=== PATIENT | female | born 1960 | race Caucasian/White ===

== ENCOUNTER 2016-09-24 06:24 | Observation (INO) | payer MEDICARE, MEDICAID ==
[2016-09-24] MEDS ORDERED: ASPIRIN 81 MG TABLET, CHEWABLE PO ONE (06:34)
[2016-09-24] MEDS ORDERED: PREDNISONE 20 MG TABLET PO ONE (08:31)
[2016-09-24] MEDS ORDERED: IPRATROPIUM/ALBUTEROL 0.5-2.5 MG/3 ML AMPUL NEB ONE (08:31)
--- NOTE | 2016-09-24 08:32 | ER Document Report ---
ED Cardiac - General Chief Complaint: Chest Pain Stated Complaint: CHEST PAIN Mode of Arrival: Ambulatory Information source: Patient Notes: Patient states that she developed left-sided chest pain under her breast that was burning in nature yesterday morning around 4 AM. Patient states that yesterday her chest pain was off and on throughout the day. Patient states that her pain returned at 5 this morning and has been constant since then. Patient states that pain varies between being burning in nature, sharp, and occasionally dull. Patient reports that pain radiates to the left neck and left upper arm. Patient does have a history of chronic back pain and shoulder pain as well. Patient does report some shortness of breath, nausea but no vomiting. Patient reports mild cough that has been productive with brown and green colored sputum. TRAVEL OUTSIDE OF THE [place] IN LAST 30 DAYS: No - HPI Patient complains to provider of: Chest pain, Shortness of breath Was the onset of pain: Gradual Is the pain a: New problem Chest pain location: Back, Under breast - Left breast Quality of pain: Achy, Burning, Sharp Chest pain radiation location: Left shoulder, Neck Pain level currently: 1 Chest pain precipitating factors: At Rest Cardiac risk factors: Diabetes, Hypertension, Smoker, Hx ND Positive cardiac history: Yes Associated symptoms: Back pain, Shortness of breath. denies: Nausea/vomiting Exacerbated by: Denies Relieved by: Nothing Similar symptoms previously: Yes Recently seen / treated by doctor: No - Related Data Allergies/Adverse Reactions: lactose [Lactose] Allergy (Verified 09/24/16 06:36) Sulfa (Sulfonamide Antibiotics) Adverse Reaction (Unknown, Verified 09/24/16 06: 36) Past Medical History - General Information source: Patient - Social History Smoking Status: Current Every Day Smoker - One pack per day Chew tobacco use (# tins/day): No Frequency of alcohol use: None Drug Abuse: None Occupation: none Lives with: Alone Family History: Reviewed & Not Pertinent Patient has suicidal ideation: No Patient has homicidal ideation: No - Past Medical History Cardiac Medical History: Reports: Hx Coronary Artery Disease, Hx Heart Attack - x4, Hx Hypertension Pulmonary Medical History: Reports: Hx COPD Denies: Hx Tuberculosis Neurological Medical History: Reports: Hx Cerebrovascular Accident. Denies: Hx Seizures Endocrine Medical History: Reports: Hx Diabetes Mellitus Type 1, Hx Diabetes Mellitus Type 2 Renal/ Medical History: Denies: Hx Peritoneal Dialysis GI Medical History: Reports: Hx Hepatitis - Hepatitis C Musculoskeltal Medical History: Reports Hx Arthritis Psychiatric Medical History: Reports: Hx Bipolar Disorder, Hx Depression, Hx Post Traumatic Stress Disorder Infectious Medical History: Reports: Hx Hepatitis - Hepatitis C Past Surgical History: Reports: Hx Abdominal Surgery - abdominal tumor, bladder sling, Hx Appendectomy, Hx Cardiac Catheterization, Hx Cholecystectomy, Hx Coronary Stent - 1 drug eluding stent in the LAD, Hx Gynecologic Surgery, Hx Hysterectomy - Immunizations Immunizations up to date: Yes Hx Diphtheria, Pertussis, Tetanus Vaccination: Yes - unk Hx Pneumococcal Vaccination: 09/12/11 Review of Systems - Review of Systems Constitutional: No symptoms reported. denies: Fever EENT: No symptoms reported. denies: Sinus pressure, Sinus discharge Cardiovascular: Chest pain Respiratory: Cough, Short of breath, Sputum Gastrointestinal: Nausea. denies: Abdominal pain, Vomiting Genitourinary: No symptoms reported. denies: Dysuria Female Genitourinary: No symptoms reported Musculoskeletal: Back pain - Chronic Skin: No symptoms reported Hematologic/Lymphatic: No symptoms reported Neurological/Psychological: No symptoms reported. denies: Headaches Physical Exam - Vital signs Vitals: Temp Pulse Resp BP Pulse Ox 98.3 F 80 18 146/85 H 97 09/24/16 06:35 09/24/16 06:35 09/24/16 06:35 09/24/16 06:35 09/24/16 06:35 - General General appearance: Appears well, Alert In distress: None - HEENT Head: Normocephalic Eyes: Normal Conjunctiva: Normal Sinus: Normal Nasal: Normal Mouth/Lips: Normal Pharynx: Normal Neck: Normal, Supple. No: Lymphadenopathy - Respiratory Respiratory status: No respiratory distress Breath sounds: Productive cough, Wheezing Chest palpation: Tender - Cardiovascular Rhythm: Regular Heart sounds: S1 appreciated, S2 appreciated Murmur: No - Abdominal Inspection: Obese Distension: No distension Bowel sounds: Normal Tenderness: Nontender Organomegaly: No organomegaly - Back Back: Normal, Nontender. No: CVA tenderness - Extremities General upper extremity: Normal inspection, Normal strength General lower extremity: Normal inspection, Normal strength - Neurological Neuro grossly intact: Yes Cognition: Normal Murphy Coma Scale Eye Opening: Spontaneous [place] Coma Scale Verbal: Oriented Murphy Coma Scale Motor: Obeys Commands [place] Coma Scale Total: 15 - Psychological Associated symptoms: Normal affect, Normal mood - Skin Skin Temperature: Warm Skin Moisture: Dry Skin Color: Normal Course - Re-evaluation Re-evalutation: 09/24/16 09:39 Patient reports that first nitroglycerin did not relieve her chest discomfort. Patient states second nitroglycerin helped pain from a 5-3, but states now the pain is back up to 5. RN advised that only 2 tablets been given. Additional medications ordered. Patient's vital signs stable. 09/24/16 10:47 Patient states that nitroglycerin helped her chest pain, patient states she has chronic back pain the nature did not help her pain but the morphine helped some. Patient's vital signs stable. Consulted with Dr. Munson regarding patient presentation. Recommends applying Nitropaste, repeating her troponin and calling her primary doctor with the results. 09/24/16 11:00 Patient called nursed her room stating that she had got up to plug her cell phone in and felt dizzy and then states that she passed out. RN states that initial blood pressure was 70s/40s, but has now normalized. Patient denies any change in her chest pain symptoms. Patient denies any headache. Patient without any signs of injury. Suspect that patient likely hypotensive from nitroglycerin administration. Patient advised not to get up unassisted 09/24/16 12:40 Patient states that her chest pain as a 1 out of 5 scale at this time. Patient states that her chronic upper back and shoulder pain has returned and would like pain medication. Patient states she did not take her extended release Dilaudid this morning. 09/24/16 14:[address] Lopez regarding patient presentation and diagnostic results. Discussed patient's current treatment and pain level. Agrees to accept patient for observation telemetry admission. - Vital Signs Vital signs: Temp Pulse Resp BP Pulse Ox 98.3 F 80 13 135/70 H 95 09/24/16 06:35 09/24/16 06:35 09/24/16 15:01 09/24/16 15:01 09/24/16 15:01 - Laboratory Result Diagrams: 09/24/16 09:31 09/24/16 09:31 Laboratory results interpreted by me: 09/24/16 09/24/16 09:31 09:31 MCHC 31.7 L Glucose 157 H Creatine Kinase 23 L Labs- Entire Visit 09/24/16 09/24/16 09/24/16 09:31 09:31 09:31 WBC 9.2 RBC 4.28 Hgb 12.9 Hct 40.6 MCV 95 MCH 30.1 MCHC 31.7 L RDW 13.5 Plt Count 189 Seg Neutrophils % 62.5 Lymphocytes % 28.0 Monocytes % 6.1 Eosinophils % 2.5 Basophils % 0.9 Absolute Neutrophils 5.8 Absolute Lymphocytes 2.6 Absolute Monocytes 0.6 Absolute Eosinophils 0.2 Absolute Basophils 0.1 Sodium 143.3 Potassium 4.0 Chloride 106 Carbon Dioxide 25 Anion Gap 12 BUN 11 Creatinine 0.81 Est GFR ( Amer) > 60 Est GFR (Non-Af Amer) > 60 Glucose 157 H Calcium 9.1 Magnesium 1.8 Total Bilirubin 0.4 Direct Bilirubin 0.0 AST 22 ALT 26 Alkaline Phosphatase 99 Creatine Kinase 23 L CK-MB (CK-2) < 0.22 Troponin I < 0.012 Total Protein 7.2 Albumin 3.7 Lipase 224.5 Urine Color Urine Appearance Urine pH Ur Specific [place] Urine Protein Urine Glucose (UA) Urine Ketones Urine Blood Urine Nitrite Urine Bilirubin Urine Urobilinogen Ur Leukocyte Esterase Urine WBC (Auto) Urine RBC (Auto) Urine Bacteria (Auto) Squamous Epi Cells Auto Urine Mucus (Auto) Urine Ascorbic Acid 09/24/16 09/24/16 12:22 14:42 WBC RBC Hgb Hct MCV MCH MCHC RDW Plt Count Seg Neutrophils % Lymphocytes % Monocytes % Eosinophils % Basophils % Absolute Neutrophils Absolute Lymphocytes Absolute Monocytes Absolute Eosinophils Absolute Basophils Sodium Potassium Chloride Carbon Dioxide Anion Gap BUN Creatinine Est GFR ( Amer) Est GFR (Non-Af Amer) Glucose Calcium Magnesium Total Bilirubin Direct Bilirubin AST ALT Alkaline Phosphatase Creatine Kinase CK-MB (CK-2) Troponin I < 0.012 Total Protein Albumin Lipase Urine Color YELLOW Urine Appearance CLOUDY Urine pH 5.0 Ur Specific [place] 1.012 Urine Protein NEGATIVE Urine Glucose (UA) 50 H Urine Ketones NEGATIVE Urine Blood NEGATIVE Urine Nitrite POSITIVE H Urine Bilirubin NEGATIVE Urine Urobilinogen NEGATIVE Ur Leukocyte Esterase LARGE H Urine WBC (Auto) 68 Urine RBC (Auto) 2 Urine Bacteria (Auto) TRACE Squamous Epi Cells Auto 12 Urine Mucus (Auto) RARE Urine Ascorbic Acid 40 H - Diagnostic Test Radiology reviewed: Reports reviewed Discharge - Discharge Clinical Impression: Chronic pain disorder Chest pain Qualifiers: Chest pain type: unspecified Qualified Code(s): R07.9 - Chest pain, unspecified Diabetes mellitus Qualifiers: Diabetes mellitus type: type 2 Diabetes mellitus complication status: with unspecified complications Diabetes mellitus ferry terminal agent insulin use: with ferry terminal agent use Qualified Code(s): E11.8 - Type 2 diabetes mellitus with unspecified complications Urinary tract infection Qualifiers: Urinary tract infection type: acute cystitis Hematuria presence: without hematuria Qualified Code(s): N30.00 - Acute cystitis without hematuria Condition: Stable Disposition: ADMITTED OBSERVATION Admitting Provider: Jessica Unit Admitted: Telemetry
[2016-09-24] MEDS: NITROGLYCERIN 0.4 MG/TAB 25 TAB/BOTTLE SL PRN ×3 (08:46→09:10)
[2016-09-24] MEDS ORDERED: MORPHINE SULFATE 10 MG/ML INJ IV ONE (09:38)
[2016-09-24 09:47] LABS: ABSOLUTE BASOPHILS # (AUTO) 0.1 10^3/uL (0.0-0.2); ABSOLUTE EOSINOPHILS # (AUTO) 0.2 10^3/uL (0.0-0.6); ABSOLUTE LYMPHOCYTES (AUTO) 2.6 10^3/uL (0.5-4.7); ABSOLUTE MONOCYTES (AUTO) 0.6 10^3/uL (0.1-1.4); ABSOLUTE NEUT (AUTO) 5.8 10^3/uL (1.7-8.2); BASOPHILS % (AUTO) 0.9 % (0-2); EOSINOPHILS % (AUTO) 2.5 % (0-6); HEMATOCRIT 40.6 % (36.0-47.0); HEMOGLOBIN 12.9 g/dL (12.0-15.5); HGB HCT DIFFERENCE -1.9; MEAN CORPUSCULAR HEMOGLOBIN 30.1 pg (27.0-33.4); MEAN CORPUSCULAR HGB CONC 31.7 g/dL (32.0-36.0); MEAN CORPUSCULAR VOLUME 95 fl (80-97); MONOCYTES % (AUTO) 6.1 % (3-13); RED BLOOD COUNT 4.28 10^6/uL (3.72-5.28); RED CELL DISTRIBUTION WIDTH 13.5 % (11.5-14.0); SEGMENTED NEUTROPHILS % (AUTO) 62.5 % (42-78); WHITE BLOOD COUNT 9.2 10^3/uL (4.0-10.5)
[2016-09-24 10:12] LABS: ALANINE AMINOTRANSFERASE 26 U/L (9-52); ALBUMIN 3.7 g/dL (3.5-5.0); ALKALINE PHOSPHATASE 99 U/L (38-126); ANION GAP 12 (5-19); ASPARTATE AMINO TRANSFERASE 22 U/L (14-36); BILIRUBIN,TOTAL 0.4 mg/dL (0.2-1.3); BLOOD UREA NITROGEN 11 mg/dL (7-20); CALCIUM 9.1 mg/dL (8.4-10.2); CARBON DIOXIDE 25 mmol/L (22-30); CHLORIDE 106 mmol/L (98-107); CREATINE KINASE 23 U/L (30-135); CREATININE RESULT 0.81 mg/dL (0.52-1.25); GLUCOSE 157 mg/dL (75-110); LIPASE 224.5 U/L (23-300); MAGNESIUM 1.8 mg/dL (1.6-2.3); SODIUM 143.3 mmol/L (137-145); TOTAL PROTEIN 7.2 g/dL (6.3-8.2)
[2016-09-24 10:30] LABS: CREATINE KINASE MB < 0.22 ng/mL (<4.55); TROPONIN I < 0.012 ng/mL
[2016-09-24] MEDS ORDERED: NITROGLYCERIN 2% OINTMENT 1 GM PACKET TP ONE (10:43)
[2016-09-24] MEDS ORDERED: HYDROMORPHONE HCL INJ/PF 2 MG/ML AMPULE IV ONE (12:39)
--- NOTE | 2016-09-24 14:52 | EKG REPORT ---
SEVERITY:- OTHERWISE NORMAL ECG - SINUS RHYTHM BORDERLINE LEFT AXIS DEVIATION : Confirmed by: Munira Elizabeth 24-Sep-2016 14:51:37
[2016-09-24 15:16] LABS: APPEARANCE,URINE CLOUDY; BILIRUBIN,URINE NEGATIVE (NEGATIVE); GLUCOSE, URINE 50 mg/dL (NEGATIVE); KETONES,URINE NEGATIVE (NEGATIVE); LEUKOCYTE ESTERASE,URINE LARGE (NEGATIVE); NITRITE,URINE POSITIVE (NEGATIVE); PROTEIN,URINE NEGATIVE (NEGATIVE); URINE SPECIFIC GRAVITY 1.012; UROBILINOGEN,URINE NEGATIVE mg/dL (<2.0)
[2016-09-24] MEDS ORDERED: CEFTRIAXONE RTU 1 GM/D5W 50 ML IV ONE (16:07)
[2016-09-24] MEDS ORDERED: CEPHALEXIN 500 MG CAPSULE PO ONE (16:08)
[2016-09-24] MEDS ORDERED: (PENDING PHARMACY ID) (Dulaglutide [Trulicity] 0.75 MG) SUBCUT PRN (16:13)
[2016-09-24] MEDS ORDERED: ONDANSETRON HCL 8 MG TABLET PO PRN ×2 (16:13→18:25)
[2016-09-24] MEDS ORDERED: BACLOFEN 10 MG TABLET PO PRN ×2 (16:13→18:25)
[2016-09-24] MEDS ORDERED: (PENDING PHARMACY ID) (Dapagliflozin Propanediol [Farxiga] 10 MG) PO SCH ×2 (16:15→18:30)
[2016-09-24] MEDS ORDERED: INSULIN DETEMIR 100 UNIT/ML 3 ML PEN SUBCUT SCH ×2 (16:15→18:30)
[2016-09-24] MEDS ORDERED: (PENDING PHARMACY ID) (Losartan/Hydrochlorothiazide [Hyzaar 100-12.5 Tablet] 1 EACH) PO SCH (16:15)
--- NOTE | 2016-09-24 16:47 | EKG REPORT ---
SEVERITY:- OTHERWISE NORMAL ECG - SINUS RHYTHM BORDERLINE LEFT AXIS DEVIATION : Confirmed by: Angie Gaston MD 24-Sep-2016 16:47:09
[2016-09-24] MEDS ORDERED: METOPROLOL SUCCINATE 50 MG TAB.SR.24H PO ONE ×2 (17:00→21:00)
[2016-09-24] MEDS ORDERED: HYDROCHLOROTHIAZIDE 12.5 MG CAPSULE PO ONE ×2 (17:00→21:30)
[2016-09-24] MEDS ORDERED: LEVOTHYROXINE SODIUM 0.05 MG TABLET PO ONE ×2 (17:00→21:00)
[2016-09-24] MEDS ORDERED: LOSARTAN POTASSIUM 50 MG TABLET PO ONE ×2 (17:00→21:30)
[2016-09-24] MEDS ORDERED: INSULIN DETEMIR 100 UNIT/ML 3 ML PEN SUBCUT ONE ×2 (17:30→21:00)
[2016-09-24] MEDS ORDERED: INFLUENZA ADLT QUAD (36MOS+) 2016-17 VAC 0.5 ML SYR IM PRN (17:56)
[2016-09-24] MEDS ORDERED: INSULIN LISPRO 5 UNIT SQ SCH ×2 (18:00→18:30)
[2016-09-24] MEDS ORDERED: (PENDING PHARMACY ID) (Hydromorphone Hcl [Dilaudid] 8 MG) PO SCH (18:30)
[2016-09-24] MEDS ORDERED: METOPROLOL SUCCINATE 50 MG TAB.SR.24H PO SCH (18:30)
[2016-09-24] MEDS ORDERED: LEVOTHYROXINE SODIUM 0.05 MG TABLET PO SCH (18:30)
[2016-09-24] MEDS ORDERED: (PENDING PHARMACY ID) (Gabapentin Enacarbil [Horizant] 600 MG) PO SCH ×2 (18:30→22:00)
[2016-09-24 19:58] LABS: CREATINE KINASE MB < 0.22 ng/mL (<4.55); TROPONIN I < 0.012 ng/mL
[2016-09-24] MEDS ORDERED: DEXTROSE 50%-WATER SYRINGE 12.5 GM/25 ML DOSE IV PRN (20:38)
[2016-09-24] MEDS ORDERED: DEXTROSE 40% GEL 15 GM TUBE PO PRN (20:38)
[2016-09-24] MEDS ORDERED: GLUCAGON,HUMAN RECOMB 1 MG INJ IM PRN (20:38)
[2016-09-24] MEDS ORDERED: DEXTROSE 50%-WATER SYRINGE 25 GM/50 ML DOSE IV PRN (20:38)
[2016-09-24] MEDS ORDERED: DEXTROSE 40% GEL 15 GM TUBE X 2 PO PRN (20:38)
[2016-09-24] MEDS ORDERED: INSULIN LISPRO 100 UNIT/ML 3 ML VIAL SUBCUT ONE (21:00)
--- NOTE | 2016-09-24 21:51 | PDOC H&P ---
History of Present Illness Admission Date/PCP: 09/24/16 14:21 TUCKER WESTFALL, History of Present Illness: JORGE ROBERT is a 55 year old female, she has history of coronary artery disease, she recently had cardiac transition done August 2016 and she had stent inserted. She came to emergency room and that this morning because of chest pressure that radiated to the left upper extremities. The chest pressure is not provoked by activity, Past Medical History Cardiac Medical History: Reports: Coronary Artery Disease, Myocardial Infarction - x4, Hypertension Pulmonary Medical History: Reports: Chronic Obstructive Pulmonary Disease (COPD) Endocrine Medical History: Reports: Diabetes Mellitus Type 2 GI Medical History: Reports: Hepatitis - Hepatitis C Musculoskeltal Medical History: Reports: Arthritis Psychiatric Medical History: Reports: Bipolar Disorder, Depression, Post Traumatic Stress Disorder Past Surgical History Past Surgical History: Reports: Appendectomy, Cardiac Catheterization, Cholecystectomy, Coronary Stent - 1 drug eluding stent in the LAD, Hysterectomy Social History Lives with: Alone Smoking Status: Current Every Day Smoker Number of Years Smokin Last Time Smoked: 09/24/2016 Frequency of Alcohol Use: None Hx Recreational Drug Use: No Hx Prescription Drug Abuse: No - Advance Directive Resuscitation Status: Full Code Family History Family History: Reviewed & Not Pertinent Parental Family History Reviewed: Yes Children Family History Reviewed: Yes Sibling(s) Family History Reviewed.: Yes Medication/Allergy Home Medications: Alprazolam [Xanax] 1 mg PO PRN PRN 09/24/16 Baclofen [Baclofen 10 mg Tablet] 10 mg PO BIDP PRN 09/24/16 Cephalexin Monohydrate [Keflex 500 mg Capsule] 500 mg PO QID 09/24/16 Dapagliflozin Propanediol [Farxiga] 10 mg PO DAILY 09/24/16 Dulaglutide [Trulicity] 0.75 mg SQ SA 09/24/16 Gabapentin Enacarbil [Horizant] 600 mg PO TID 09/24/16 Hydromorphone HCl [Dilaudid] 8 mg PO TID 09/24/16 Insulin Detemir [Levemir Insulin 100 units/mL] 50 units SQ DAILY 09/24/16 Insulin Lispro [Humalog Kwikpen U-100] 5 units SQ TID 09/24/16 Levothyroxine Sodium [Synthroid 0.05 mg Tablet] 0.05 mg PO DAILY 09/24/16 Metoprolol Succinate 50 mg PO DAILY 09/24/16 Ondansetron HCl [Zofran 8 mg Tablet] 8 mg PO Q6HP PRN 09/24/16 Zolpidem Tartrate [Ambien] 10 mg PO QHS 09/24/16 Allergies/Adverse Reactions: lactose [Lactose] Allergy (Verified 09/24/16 06:36) Sulfa (Sulfonamide Antibiotics) Adverse Reaction (Unknown, Verified 09/24/16 06: 36) Review of Systems Constitutional: ABSENT: chills, fever(s), headache(s), weight gain, weight loss Eyes: ABSENT: visual disturbances Ears: ABSENT: hearing changes Cardiovascular: PRESENT: chest pain Respiratory: ABSENT: cough, hemoptysis Gastrointestinal: ABSENT: abdominal pain, constipation, diarrhea, hematemesis, hematochezia, nausea, vomiting Genitourinary: ABSENT: dysuria, hematuria Musculoskeletal: ABSENT: joint swelling Integumentary: ABSENT: rash, wounds Neurological: ABSENT: abnormal gait, abnormal speech, confusion, dizziness, focal weakness, syncope Psychiatric: ABSENT: anxiety, depression, homidical ideation, suicidal ideation Endocrine: ABSENT: cold intolerance, heat intolerance, menstrual abnormalities, polydipsia, polyuria Hematologic/Lymphatic: ABSENT: easy bleeding, easy bruising, lymphadenopathy Physical Exam Vital Signs: Temp Pulse Resp BP Pulse Ox 98.0 F 80 16 147/86 H 97 09/24/16 20:31 09/24/16 20:31 09/24/16 20:31 09/24/16 20:31 09/24/16 20:31 Intake & Output 09/23/16 09/24/16 09/25/16 06:59 06:59 06:59 Intake Total 5 Balance 5 General appearance: PRESENT: no acute distress, well-developed, well-nourished Head exam: PRESENT: atraumatic, normocephalic Eye exam: PRESENT: conjunctiva pink, EOMI, PERRLA Ear exam: PRESENT: normal external ear exam Mouth exam: PRESENT: moist, tongue midline Neck exam: PRESENT: full ROM Respiratory exam: PRESENT: clear to auscultation jeannie Cardiovascular exam: PRESENT: +S1, +S2 Pulses: PRESENT: normal dorsalis pedis pul, +2 pedal pulses bilateral Vascular exam: PRESENT: normal capillary refill GI/Abdominal exam: PRESENT: normal bowel sounds, soft Rectal exam: PRESENT: deferred Neurological exam: PRESENT: alert, awake, oriented to person, oriented to place , oriented to time, oriented to situation, CN II-XII grossly intact Psychiatric exam: PRESENT: appropriate affect, normal mood Skin exam: PRESENT: dry, intact, warm Results Laboratory Results: 09/24/16 14:42 Urine Color YELLOW Urine Appearance CLOUDY Urine pH 5.0 Ur Specific [place] 1.012 Urine Protein NEGATIVE Urine Glucose (UA) 50 H Urine Ketones NEGATIVE Urine Blood NEGATIVE Urine Nitrite POSITIVE H Ur Leukocyte Esterase LARGE H Urine WBC (Auto) 68 Urine RBC (Auto) 2 09/24/16 09/24/16 18:50 18:50 Creatine Kinase 27 L CK-MB (CK-2) < 0.22 Troponin I < 0.012 Impressions: Chest X-Ray 09/24/16 06:34 IMPRESSION: NO ACUTE RADIOGRAPHIC FINDING IN THE CHEST. Assessment & Plan - Diagnosis (1) Chest pain Qualifiers: Chest pain type: other chest pain Qualified Code(s): R07.89 - Other chest pain; R07.8 - Other chest pain Is this a current diagnosis for this admission?: YesPlan: Patient is admitted for observation. If cardiac enzymes are negative. she could be discharged home (2) Coronary artery disease Qualifiers: Coronary Disease-Associated Artery/Lesion type: [place] artery [place] vs. transplanted heart: [place] heart Associated angina: without angina Qualified Code(s): I25.10 - Atherosclerotic heart disease of [place] coronary artery without angina pectoris Is this a current diagnosis for this admission?: Yes (3) CAD (coronary artery disease) Qualifiers: Coronary Disease-Associated Artery/Lesion type: [place] artery [place] vs. transplanted heart: [place] heart Associated angina: angina presence unspecified Qualified Code(s): I25.10 - Atherosclerotic heart disease of [place] coronary artery without angina pectoris Is this a current diagnosis for this admission?: Yes (4) COPD (chronic obstructive pulmonary disease) Qualifiers: COPD type: unspecified COPD Qualified Code(s): J44.9 - Chronic obstructive pulmonary disease, unspecified Is this a current diagnosis for this admission?: Yes
[2016-09-24] MEDS: INSULIN LISPRO 100 UNIT/ML 3 ML VIAL SUBCUT PRN (21:52)
[2016-09-24] MEDS: VENLAFAXINE HCL 75 MG CAP.SR.24H PO SCH (21:52)
[2016-09-24] MEDS: HYDROMORPHONE HCL 2 MG TABLET PO SCH (21:52)
[2016-09-24] MEDS ORDERED: (PENDING PHARMACY ID) (Zolpidem Tartrate [Ambien] 10 MG) PO SCH (22:00)
[2016-09-24] MEDS ORDERED: ZOLPIDEM TARTRATE 5 MG TABLET PO SCH (22:00)
[2016-09-24] MEDS ORDERED: CLOPIDOGREL BISULFATE 300 MG TABLET PO ONE (22:30)
[2016-09-25] MEDS ORDERED: CLOPIDOGREL BISULFATE 300 MG TABLET ONE (00:32)
[2016-09-25] MEDS: ALPRAZOLAM 0.5 MG TABLET PO SCH ×3 (01:30→13:49)
[2016-09-25 03:52] LABS: CREATINE KINASE MB < 0.22 ng/mL (<4.55); TROPONIN I < 0.012 ng/mL
[2016-09-25] MEDS: HYDROMORPHONE HCL 2 MG TABLET PO SCH (06:27)
[2016-09-25] MEDS ORDERED: INSULIN LISPRO 100 UNIT/ML 3 ML VIAL SUBCUT SCH ×2 (08:00)
[2016-09-25] MEDS ORDERED: LOSARTAN POTASSIUM 50 MG TABLET PO SCH (10:00)
[2016-09-25] MEDS ORDERED: INSULIN DETEMIR 100 UNIT/ML 3 ML PEN SUBCUT SCH ×2 (10:00)
[2016-09-25] MEDS ORDERED: LEVOTHYROXINE SODIUM 0.05 MG TABLET PO SCH ×2 (10:00)
[2016-09-25] MEDS ORDERED: METOPROLOL SUCCINATE 50 MG TAB.SR.24H PO SCH ×2 (10:00)
[2016-09-25] MEDS ORDERED: CLOPIDOGREL BISULFATE 75 MG TABLET PO SCH (10:00)
[2016-09-25] MEDS ORDERED: HYDROCHLOROTHIAZIDE 12.5 MG CAPSULE PO SCH (10:00)
[2016-09-25] MEDS ORDERED: (PENDING PHARMACY ID) (Dulaglutide [Trulicity] 0.75 MG) SQ SCH (10:00)
--- NOTE | 2016-09-25 12:22 | PDOC DISCHARGE SUMMARY ---
General - Admit/Disc Date/PCP Admission Date/Primary Care Provider: 09/24/16 14:21 TUCKER WESTFALL, Discharge Date: 09/25/16 - Discharge Diagnosis (1) Chest pain Is this a current diagnosis for this admission?: YesSummary: Chest pain is most likely musculoskeletal in origin. (2) Coronary artery disease Is this a current diagnosis for this admission?: YesSummary: Patient was instructed to continue on all of her preadmission medications. (3) UTI (urinary tract infection) Is this a current diagnosis for this admission?: YesSummary: Her urinalysis and urine culture are suggestive of UTI with gram negative organism growth on urine culture. Organism identification and sensitivity pending at the time of discharge. We will follow up on outpatient and adjust antibiotic coverage as necessary. - Additional Information Resuscitation Status: Full Code Home Medications: Alprazolam [Xanax] 1 mg PO PRN PRN 09/24/16 Baclofen [Baclofen 10 mg Tablet] 10 mg PO BIDP PRN 09/24/16 Cephalexin Monohydrate [Keflex 500 mg Capsule] 500 mg PO QID 09/24/16 Dapagliflozin Propanediol [Farxiga] 10 mg PO DAILY 09/24/16 Dulaglutide [Trulicity] 0.75 mg SQ SA 09/24/16 Gabapentin Enacarbil [Horizant] 600 mg PO TID 09/24/16 Hydromorphone HCl [Dilaudid] 8 mg PO TID 09/24/16 Insulin Detemir [Levemir Insulin 100 units/mL] 50 units SQ DAILY 09/24/16 Insulin Lispro [Humalog Kwikpen U-100] 5 units SQ TID 09/24/16 Levothyroxine Sodium [Synthroid 0.05 mg Tablet] 0.05 mg PO DAILY 09/24/16 Metoprolol Succinate 50 mg PO DAILY 09/24/16 Ondansetron HCl [Zofran 8 mg Tablet] 8 mg PO Q6HP PRN 09/24/16 Zolpidem Tartrate [Ambien] 10 mg PO QHS 09/24/16 History of Present Illness History of Present Illness: JORGE ROBERT is a 55 year old female admitted on 09/24/16 due to reported pressure like chest pain. She was admitted to observation bed for rule out ACS due to her comorbidities including recent cardiac cath and stent angioplasty. Her serial cardiac enzymes were within normal range. Hospital Course Hospital Course: Her serial cardiac enzymes were within normal ranges. Patient reported resolution of her pain. She was made aware of possible acute cystitis based of her urinalysis and urine culture results.She admitted to discomfort with urination. She denied any definite fever or chills. No nausea, vomiting or abdominal pain. She will be discharged home on Augmentin 875/125 mg po bid x 5 days. Physical Exam Vital Signs: Temp Pulse Resp BP Pulse Ox 97.3 F 71 18 136/84 H 97 09/25/16 08:01 09/25/16 08:01 09/25/16 08:01 09/25/16 08:01 09/25/16 08:01 Intake & Output 09/24/16 09/25/16 09/26/16 06:59 06:59 06:59 Intake Total 480 Balance 480 Weight 81.2 kg General appearance: PRESENT: no acute distress, obese Head exam: PRESENT: atraumatic, normocephalic Eye exam: PRESENT: conjunctiva pink, EOMI, PERRLA. ABSENT: scleral icterus Ear exam: PRESENT: normal external ear exam Mouth exam: PRESENT: moist, tongue midline Throat exam: ABSENT: post pharyngeal erythema, tonsillar erythema, tonsillar exudate, tonsillogmegaly, other Neck exam: PRESENT: full ROM. ABSENT: carotid bruit, JVD, lymphadenopathy, thyromegaly Respiratory exam: ABSENT: accessory muscle use, chest wall tenderness, clear to auscultation jeannie, crackles, decreased breath sounds, prolonged expiratory phas, rales, retraction, rhonchi, stridor, symmetrical, tachypnea, unlabored, wheezes , other Cardiovascular exam: PRESENT: RRR. ABSENT: diastolic murmur, rubs, systolic murmur Pulses: PRESENT: normal dorsalis pedis pul, +2 pedal pulses bilateral Vascular exam: PRESENT: normal capillary refill GI/Abdominal exam: PRESENT: normal bowel sounds, soft. ABSENT: distended, guarding, mass, organolmegaly, rebound, tenderness Extremities exam: PRESENT: full ROM Musculoskeletal exam: PRESENT: ambulatory, full ROM, normal inspection Neurological exam: PRESENT: alert, awake, oriented to person, oriented to place , oriented to time, oriented to situation, CN II-XII grossly intact. ABSENT: motor sensory deficit Psychiatric exam: PRESENT: appropriate affect, normal mood. ABSENT: homicidal ideation, suicidal ideation Skin exam: PRESENT: dry, intact, warm. ABSENT: cyanosis, rash Results Laboratory Results: 09/24/16 14:42 Urine Color YELLOW Urine Appearance CLOUDY Urine pH 5.0 Ur Specific [place] 1.012 Urine Protein NEGATIVE Urine Glucose (UA) 50 H Urine Ketones NEGATIVE Urine Blood NEGATIVE Urine Nitrite POSITIVE H Ur Leukocyte Esterase LARGE H Urine WBC (Auto) 68 Urine RBC (Auto) 2 09/24/16 09/24/16 09/25/16 18:50 18:50 03:04 Creatine Kinase 27 L 23 L CK-MB (CK-2) < 0.22 Troponin I < 0.012 09/25/16 03:04 Creatine Kinase CK-MB (CK-2) < 0.22 Troponin I < 0.012 Impressions: Chest X-Ray 09/24/16 06:34 IMPRESSION: NO ACUTE RADIOGRAPHIC FINDING IN THE CHEST. Qualifiers PATEINT BEING DISCHARGED WITH ANY OF THE FOLLOWING DIAGNOSIS?: No Plan Discharge Plan: See discharge orders. patient was instructed to follow up with Dr Westfall within 7 days upon discharge. Time Spent: Less than 30 Minutes
[2016-09-25 12:32] LABS: CREATINE KINASE MB < 0.22 ng/mL (<4.55); TROPONIN I < 0.012 ng/mL
[2016-09-25] MEDS: VENLAFAXINE HCL 75 MG CAP.SR.24H PO SCH (13:47)
[2016-09-25] MEDS: INSULIN LISPRO 100 UNIT/ML 3 ML VIAL SUBCUT PRN (13:50)
[2016-09-25 14:41] VITALS: BP 135/92
== END 2016-09-25 14:43 | disposition home or self-care (01) ==
LOC: ER 06:24 → UNDOADMOB 14:21 → EH 14:21 → 5 17:39 → EH 17:39 → 5 21:00 → UNDODISOB 09-25 14:43
PROVIDERS: ADMIT Internal Medicine; ATTEND Internal Medicine
DX: R07.9 Chest pain, unspecified (principal); I25.10 Atherosclerotic heart disease of native coronary artery without angina pectoris; N39.0 Urinary tract infection, site not specified; Z95.5 Presence of coronary angioplasty implant and graft; E11.9 Type 2 diabetes mellitus without complications; Z79.4 Long term (current) use of insulin; J44.9 Chronic obstructive pulmonary disease, unspecified; I25.2 Old myocardial infarction; I10 Essential (primary) hypertension; M19.90 Unspecified osteoarthritis, unspecified site; B19.20 Unspecified viral hepatitis C without hepatic coma; F31.9 Bipolar disorder, unspecified; F43.10 Post-traumatic stress disorder, unspecified; F17.210 Nicotine dependence, cigarettes, uncomplicated; Z23 Encounter for immunization
CPT/HCPCS: 93005; 94640; 99285; 96374; 36415 ×2; 87086; 82553 ×2; 82962 ×2; 82550 ×2; 83690; 83735; 85025; 87088; 80053; 81001; 84484 ×2; 87186; 71010; 90686; 93010; 90471; G0378 ×2; A9270 ×22; J2270; J1170; J1815; J3490; J7512; J7620; S0119

== ENCOUNTER 2016-10-09 06:51 | Emergency (ER) | payer MEDICARE, MEDICAID ==
[2016-10-09] MEDS ORDERED: HYDROMORPHONE HCL INJ/PF 2 MG/ML AMPULE IV ONE ×2 (08:44→11:55)
--- NOTE | 2016-10-09 08:45 | ER Document Report ---
ED GI/ - General Chief Complaint: Low Back Pain Stated Complaint: LOWER BACK PAIN Mode of Arrival: Medic Information source: Patient Notes: Patient presents complaining of right lower back pain that radiates around to right lateral side that started yesterday. Patient states pain worsens when she is standing. Patient denies any midline back tenderness or radiculopathy into her lower extremities. Patient complains of a cramping type pain and pain to her vaginal area. Patient states that she has had some urinary frequency with occasional incontinence. Patient does take merbetriq for overactive bladder. Patient reports nausea but denies any vomiting. Patient states she had diarrhea yesterday but that resolved today. TRAVEL OUTSIDE OF THE [place] IN LAST 30 DAYS: No - HPI Patient complains to provider of: Flank pain, Vaginal pain, Other - Right lateral side pain Onset: Yesterday Timing/Duration: Gradual Quality of pain: Cramping Pain Level: 5 Location: Right flank, Pelvis, Vaginal Vaginal bleeding (Compared to normal period): None Associated symptoms: Nausea, Urinary frequency. denies: Constipation, Diarrhea , Dysuria, Fever, Loss of appetite Exacerbated by: Standing, Movement Relieved by: Denies Similar symptoms previously: No Recently seen / treated by doctor: No - Related Data Allergies/Adverse Reactions: lactose [Lactose] Allergy (Verified 09/24/16 06:36) Sulfa (Sulfonamide Antibiotics) Adverse Reaction (Unknown, Verified 09/24/16 06: 36) Past Medical History - General Information source: Patient - Social History Smoking Status: Current Every Day Smoker Chew tobacco use (# tins/day): No Frequency of alcohol use: None Drug Abuse: None Occupation: none Lives with: Alone Family History: Reviewed & Not Pertinent Patient has suicidal ideation: No Patient has homicidal ideation: No - Past Medical History Cardiac Medical History: Reports: Hx Coronary Artery Disease, Hx Heart Attack - x4, Hx Hypertension Pulmonary Medical History: Reports: Hx COPD Denies: Hx Tuberculosis Neurological Medical History: Reports: Hx Cerebrovascular Accident. Denies: Hx Seizures Endocrine Medical History: Reports: Hx Diabetes Mellitus Type 1, Hx Diabetes Mellitus Type 2 Renal/ Medical History: Denies: Hx Peritoneal Dialysis GI Medical History: Reports: Hx Hepatitis - Hepatitis C Musculoskeltal Medical History: Reports Hx Arthritis Psychiatric Medical History: Reports: Hx Bipolar Disorder, Hx Depression, Hx Post Traumatic Stress Disorder Infectious Medical History: Reports: Hx Hepatitis - Hepatitis C Past Surgical History: Reports: Hx Abdominal Surgery - abdominal tumor, bladder sling, Hx Appendectomy, Hx Cardiac Catheterization, Hx Cholecystectomy, Hx Coronary Stent - 1 drug eluding stent in the LAD, Hx Gynecologic Surgery, Hx Hysterectomy - Immunizations Immunizations up to date: Yes Hx Diphtheria, Pertussis, Tetanus Vaccination: Yes Hx Pneumococcal Vaccination: 09/12/11 Review of Systems - Review of Systems Constitutional: Recent illness - Patient reports being treated for recent UTI, states she is now on medication for bronchitis. denies: Fever EENT: No symptoms reported Cardiovascular: No symptoms reported Respiratory: Cough Gastrointestinal: Abdominal pain - Right lateral side, Nausea. denies: Vomiting Genitourinary: Frequency. denies: Discharge Female Genitourinary: Other - Vaginal pain Musculoskeletal: Back pain - Right lower back Skin: No symptoms reported Hematologic/Lymphatic: No symptoms reported Neurological/Psychological: No symptoms reported Physical Exam - Vital signs Vitals: Temp Pulse Resp BP Pulse Ox 98.2 F 101 H 18 159/69 H 97 10/09/16 07:02 10/09/16 07:02 10/09/16 07:02 10/09/16 07:02 10/09/16 07:02 - General General appearance: Appears well, Alert In distress: None - Respiratory Respiratory status: No respiratory distress Chest status: Nontender Breath sounds: Normal Chest palpation: Normal - Cardiovascular Rhythm: Regular Heart sounds: S1 appreciated, S2 appreciated Murmur: No - Abdominal Inspection: Obese Distension: No distension Bowel sounds: Normal Tenderness: Tender - Right lower lateral side tenderness Organomegaly: No organomegaly - Rectal Tenderness: No Hemorrhoids: None Notes: Normal rectal tone, no saddle anesthesia - Genitourinary External exam: Normal Speculum exam: Other - s/p hyst surgical changes [place] exam: Bladder/Urethral tender - Back Back: CVA tenderness - right. No: Vertebra tenderness - Extremities General upper extremity: Normal inspection, Normal strength General lower extremity: Normal inspection, Normal strength - Neurological Neuro grossly intact: Yes Cognition: Normal Orientation: AAOx4 [place] Coma Scale Eye Opening: Spontaneous [place] Coma Scale Verbal: Oriented [place] Coma Scale Motor: Obeys Commands [place] Coma Scale Total: 15 - Psychological Associated symptoms: Normal affect, Normal mood - Skin Skin Temperature: Warm Skin Moisture: Dry Course - Re-evaluation Re-evalutation: 10/09/16 11:06 Patient continues with right flank tenderness. Consulted with Dr. Munson regarding patient presentation, history, and exam findings. Does not recommend any additional diagnostic studies at this time. Recommends outpatient follow- up with primary doctor. 10/09/16 12:52 Patient states that she was not able to get her Dilaudid prescription filled completely as the pharmacy was out of her dose of medication. Patient states that the pharmacy will not get her full prescription until Tuesday. Patient states she only takes the pain medication as needed, although will not be able to take any pain medicine at home as she is currently out of her medication. Patient advised to follow-up with her primary care provider on Tuesday for recheck. Patient additionally advised to follow-up with pharmacy regarding getting the rest of her pain medication filled as previously written. Discussed worsening signs or symptoms that patient should return immediately for. Patient presents with abdominal pain without signs of peritonitis or other life- threatening or serious etiology. Patient appears stable for discharge and has been instructed to return immediately if the symptoms worsen in any way,or if not improved for reevaluation. - Vital Signs Vital signs: Temp Pulse Resp BP Pulse Ox 98.5 F 78 18 142/89 H 99 10/09/16 11:35 10/09/16 13:12 10/09/16 13:12 10/09/16 13:12 10/09/16 13:12 - Laboratory Result Diagrams: 10/09/16 09:20 10/09/16 09:20 Laboratory results interpreted by me: 10/09/16 10/09/16 10/09/16 08:35 09:20 09:20 Plt Count 144 L Seg Neutrophils % 78.2 H Glucose 161 H Urine Glucose (UA) 150 H Urine Blood SMALL H Labs- Entire Visit 10/09/16 10/09/16 10/09/16 08:35 09:20 09:20 WBC 7.6 RBC 3.98 Hgb 12.6 Hct 37.0 MCV 93 MCH 31.6 MCHC 34.0 RDW 13.1 Plt Count 144 L Seg Neutrophils % 78.2 H Lymphocytes % 14.8 Monocytes % 5.5 Eosinophils % 1.1 Basophils % 0.4 Absolute Neutrophils 6.0 Absolute Lymphocytes 1.1 Absolute Monocytes 0.4 Absolute Eosinophils 0.1 Absolute Basophils 0.0 Sodium 142.9 Potassium 3.9 Chloride 105 Carbon Dioxide 24 Anion Gap 14 BUN 15 Creatinine 0.95 Est GFR ( Amer) > 60 Est GFR (Non-Af Amer) > 60 Glucose 161 H Calcium 9.2 Total Bilirubin 0.6 Direct Bilirubin 0.0 AST 19 ALT 32 Alkaline Phosphatase 95 Total Protein 7.5 Albumin 3.7 Lipase 196.2 Urine Color STRAW Urine Appearance CLEAR Urine pH 5.0 Ur Specific [place] 1.009 Urine Protein NEGATIVE Urine Glucose (UA) 150 H Urine Ketones NEGATIVE Urine Blood SMALL H Urine Nitrite NEGATIVE Urine Bilirubin NEGATIVE Urine Urobilinogen NEGATIVE Ur Leukocyte Esterase NEGATIVE Urine WBC (Auto) 1 Urine RBC (Auto) 0 Squamous Epi Cells Auto 2 Urine Ascorbic Acid NEGATIVE Trichomonas (Wet Prep) Vaginal WBC Vaginal RBC Vaginal Yeast Chlamydia DNA (PCR) N.gonorrhoeae DNA (PCR) 10/09/16 10/09/16 10:50 10:50 WBC RBC Hgb Hct MCV MCH MCHC RDW Plt Count Seg Neutrophils % Lymphocytes % Monocytes % Eosinophils % Basophils % Absolute Neutrophils Absolute Lymphocytes Absolute Monocytes Absolute Eosinophils Absolute Basophils Sodium Potassium Chloride Carbon Dioxide Anion Gap BUN Creatinine Est GFR ( Amer) Est GFR (Non-Af Amer) Glucose Calcium Total Bilirubin Direct Bilirubin AST ALT Alkaline Phosphatase Total Protein Albumin Lipase Urine Color Urine Appearance Urine pH Ur Specific [place] Urine Protein Urine Glucose (UA) Urine Ketones Urine Blood Urine Nitrite Urine Bilirubin Urine Urobilinogen Ur Leukocyte Esterase Urine WBC (Auto) Urine RBC (Auto) Squamous Epi Cells Auto Urine Ascorbic Acid Trichomonas (Wet Prep) NO TRICHOMONAS SEEN Vaginal WBC RARE WBCS SEEN Vaginal RBC NO RBCS SEEN Vaginal Yeast NO YEAST SEEN Chlamydia DNA (PCR) NOT DETECTED N.gonorrhoeae DNA (PCR) NOT DETECTED - Diagnostic Test Radiology reviewed: Reports reviewed - Reviewed patient's CT limited report from June 2016. Discharge - Discharge Clinical Impression: Flank pain, right side pain, Urinary symptom or sign Chronic pain Qualifiers: Chronic pain type: other chronic pain Qualified Code(s): G89.29 - Other chronic pain Condition: Stable Disposition: HOME, SELF-CARE Instructions: Abdominal Pain ([facility]), Warm Packs ([facility]), Flank Pain ([facility]) Additional Instructions: Return immediately for any new or worsening symptoms Followup with your primary care provider, call Tuesday to make a followup appointment Get your pain prescription filled from your pharmacist and take as directed Cultures are pending, we will call if you need any different treatment Referrals: TUCKER WESTFALL MD [Primary Care Provider] - 10/11/16
[2016-10-09 09:13] LABS: APPEARANCE,URINE CLEAR; BILIRUBIN,URINE NEGATIVE (NEGATIVE); GLUCOSE, URINE 150 mg/dL (NEGATIVE); KETONES,URINE NEGATIVE (NEGATIVE); LEUKOCYTE ESTERASE,URINE NEGATIVE (NEGATIVE); NITRITE,URINE NEGATIVE (NEGATIVE); PROTEIN,URINE NEGATIVE (NEGATIVE); URINE SPECIFIC GRAVITY 1.009; UROBILINOGEN,URINE NEGATIVE mg/dL (<2.0)
[2016-10-09 09:36] LABS: ABSOLUTE EOSINOPHILS # (AUTO) 0.1 10^3/uL (0.0-0.6); ABSOLUTE LYMPHOCYTES (AUTO) 1.1 10^3/uL (0.5-4.7); ABSOLUTE MONOCYTES (AUTO) 0.4 10^3/uL (0.1-1.4); BASOPHILS % (AUTO) 0.4 % (0-2); EOSINOPHILS % (AUTO) 1.1 % (0-6); HEMOGLOBIN 12.6 g/dL (12.0-15.5); HGB HCT DIFFERENCE 0.8; LYMPHOCYTES % (AUTO) 14.8 % (13-45); MEAN CORPUSCULAR HEMOGLOBIN 31.6 pg (27.0-33.4); MEAN CORPUSCULAR VOLUME 93 fl (80-97); MONOCYTES % (AUTO) 5.5 % (3-13); RED BLOOD COUNT 3.98 10^6/uL (3.72-5.28); RED CELL DISTRIBUTION WIDTH 13.1 % (11.5-14.0); SEGMENTED NEUTROPHILS % (AUTO) 78.2 % (42-78); WHITE BLOOD COUNT 7.6 10^3/uL (4.0-10.5)
[2016-10-09 09:44] LABS: ALANINE AMINOTRANSFERASE 32 U/L (9-52); ALBUMIN 3.7 g/dL (3.5-5.0); ALKALINE PHOSPHATASE 95 U/L (38-126); ANION GAP 14 (5-19); ASPARTATE AMINO TRANSFERASE 19 U/L (14-36); BILIRUBIN,TOTAL 0.6 mg/dL (0.2-1.3); BLOOD UREA NITROGEN 15 mg/dL (7-20); CALCIUM 9.2 mg/dL (8.4-10.2); CARBON DIOXIDE 24 mmol/L (22-30); CHLORIDE 105 mmol/L (98-107); CREATININE RESULT 0.95 mg/dL (0.52-1.25); GLUCOSE 161 mg/dL (75-110); LIPASE 196.2 U/L (23-300); POTASSIUM 3.9 mmol/L (3.6-5.0); SODIUM 142.9 mmol/L (137-145); TOTAL PROTEIN 7.5 g/dL (6.3-8.2)
[2016-10-09 12:35] LABS: CHLAM PCR NOT DETECTED (NOT DETECT)
[2016-10-09 13:12] VITALS: BP 142/89
== END 2016-10-09 13:12 | disposition home or self-care (01) ==
LOC: ER 06:51
DX: M54.5 Low back pain (principal); R10.2 Pelvic and perineal pain; N32.81 Overactive bladder; G89.29 Other chronic pain; R32 Unspecified urinary incontinence; R11.0 Nausea; R05 Cough; F17.200 Nicotine dependence, unspecified, uncomplicated; I25.10 Atherosclerotic heart disease of native coronary artery without angina pectoris; I25.2 Old myocardial infarction; I10 Essential (primary) hypertension; J44.9 Chronic obstructive pulmonary disease, unspecified; E11.9 Type 2 diabetes mellitus without complications; Z86.73 Personal history of transient ischemic attack (TIA), and cerebral infarction without residual deficits; Z90.49 Acquired absence of other specified parts of digestive tract; Z98.61 Coronary angioplasty status; Z90.710 Acquired absence of both cervix and uterus; Z98.890 Other specified postprocedural states; Z87.440 Personal history of urinary (tract) infections
CPT/HCPCS: 96376; 99284; 96374; 36415; 87040; 87086; 87210; 83690; 85025; 80053; 81001; 87491; 87591; J1170

== ENCOUNTER 2016-11-14 20:56 | Emergency (ER) | payer MEDICARE, MEDICAID ==
--- NOTE | 2016-11-14 21:51 | ER Document Report ---
ED Medical Screen (RME) - General Stated Complaint: LEFT FLANK PAIN Notes: Patient states she fell Tuesday morning injuring left ribs. States she fell because her leg gave out on her. Pain with movement. I have greeted and performed a rapid initial assessment of this patient. A comprehensive ED assessment and evaluation of the patient, analysis of test results and completion of the medical decision making process will be conducted by additional ED providers. TRAVEL OUTSIDE OF THE [place] IN LAST 30 DAYS: No - Related Data Allergies/Adverse Reactions: lactose [Lactose] Allergy (Verified 09/24/16 06:36) Sulfa (Sulfonamide Antibiotics) Adverse Reaction (Unknown, Verified 09/24/16 06: 36) Past Medical History - Past Medical History Cardiac Medical History: Reports: Hx Coronary Artery Disease, Hx Heart Attack - x4, Hx Hypertension Pulmonary Medical History: Reports: Hx COPD Denies: Hx Tuberculosis Neurological Medical History: Reports: Hx Cerebrovascular Accident. Denies: Hx Seizures Endocrine Medical History: Reports: Hx Diabetes Mellitus Type 1, Hx Diabetes Mellitus Type 2 Renal/ Medical History: Denies: Hx Peritoneal Dialysis GI Medical History: Reports: Hx Hepatitis - Hepatitis C Musculoskeltal Medical History: Reports Hx Arthritis Psychiatric Medical History: Reports: Hx Bipolar Disorder, Hx Depression, Hx Post Traumatic Stress Disorder Infectious Medical History: Reports: Hx Hepatitis - Hepatitis C Past Surgical History: Reports: Hx Abdominal Surgery - abdominal tumor, bladder sling, Hx Appendectomy, Hx Cardiac Catheterization, Hx Cholecystectomy, Hx Coronary Stent - 1 drug eluding stent in the LAD, Hx Gynecologic Surgery, Hx Hysterectomy - Immunizations Immunizations up to date: Yes Hx Diphtheria, Pertussis, Tetanus Vaccination: Yes Physical Exam - Vital signs Vitals: Temp Pulse Resp BP Pulse Ox 97.3 F 91 16 93/65 L 100 11/14/16 21:19 11/14/16 21:19 11/14/16 21:19 11/14/16 21:19 11/14/16 21:19 - Respiratory Notes: Lungs clear to auscultation, breath sounds normal on left side where injury occurred. Tender left lateral ribs with minor touch. No bruising noted. Course - Vital Signs Vital signs: Temp Pulse Resp BP Pulse Ox 97.3 F 91 16 93/65 L 100 11/14/16 21:19 11/14/16 21:19 11/14/16 21:19 11/14/16 21:19 11/14/16 21:19
--- NOTE | 2016-11-14 22:57 | ER Document Report ---
ED General - General Chief Complaint: Rib Pain Stated Complaint: LEFT FLANK PAIN Notes: Patient is a 48-year-old female presents with complaint of a fall. She says her dogs jumped on her back causing her to fall onto her metal steps. She felt her left ribs. She denies any associated abdominal pain. Pain is only over the left lower ribs. She is unsure she hit her head. She says that since then she's been a little bit sleepy. She denies any neck or back pain. She also mentions that she is on pain management and receives a lot of. She said that she ran out of her Dilaudid because "my doctor has been sick". According to the [place] controlled substance database she just filled a prescription of 60 Dilaudid pills on November 08. This is only 7 days ago. TRAVEL OUTSIDE OF THE [place] IN LAST 30 DAYS: No - Related Data Allergies/Adverse Reactions: lactose [Lactose] Allergy (Verified 11/14/16 21:54) Sulfa (Sulfonamide Antibiotics) Adverse Reaction (Unknown, Verified 11/14/16 21: 54) Past Medical History - Social History Smoking Status: Current Every Day Smoker Chew tobacco use (# tins/day): No Frequency of alcohol use: None Drug Abuse: None Family History: Reviewed & Not Pertinent Patient has suicidal ideation: No Patient has homicidal ideation: No - Past Medical History Cardiac Medical History: Reports: Hx Coronary Artery Disease, Hx Heart Attack - x4, Hx Hypertension Pulmonary Medical History: Reports: Hx COPD Denies: Hx Tuberculosis Neurological Medical History: Reports: Hx Cerebrovascular Accident. Denies: Hx Seizures Endocrine Medical History: Reports: Hx Diabetes Mellitus Type 1, Hx Diabetes Mellitus Type 2 Renal/ Medical History: Denies: Hx Peritoneal Dialysis GI Medical History: Reports: Hx Hepatitis - Hepatitis C Musculoskeltal Medical History: Reports Hx Arthritis Psychiatric Medical History: Reports: Hx Bipolar Disorder, Hx Depression, Hx Post Traumatic Stress Disorder Infectious Medical History: Reports: Hx Hepatitis - Hepatitis C Past Surgical History: Reports: Hx Abdominal Surgery - abdominal tumor, bladder sling, Hx Appendectomy, Hx Cardiac Catheterization, Hx Cholecystectomy, Hx Coronary Stent - 1 drug eluding stent in the LAD, Hx Gynecologic Surgery, Hx Hysterectomy - Immunizations Immunizations up to date: Yes Hx Diphtheria, Pertussis, Tetanus Vaccination: Yes Hx Pneumococcal Vaccination: 09/12/11 Review of Systems - Review of Systems Notes: My Normal Review Basic REVIEW OF SYSTEMS: CONSTITUTIONAL : Denies fever, chills, or sweats. Denies recent illness. CARDIOVASCULAR: Left lower rib pain. RESPIRATORY: Denies cough, cold, or chest congestion. Denies shortness of breath, difficulty breathing, or wheezing. GASTROINTESTINAL: Denies abdominal pain. Denies nausea, vomiting, or diarrhea. Denies constipation. Last BM: GENITOURINARY: Denies difficulty urinating, painful urination, burning, frequency, or blood in urine. MUSCULOSKELETAL: Denies neck or back pain or joint pain or swelling. SKIN: Denies rash or skin lesions. HEMATOLOGIC : Denies easy bruising or bleeding. NEUROLOGICAL: Denies altered mental status or loss of consciousness. Mild headache. Denies weakness or paralysis or loss of use of either side. Denies problems with gait or speech. Denies sensory or motor loss. ALL OTHER SYSTEMS REVIEWED AND NEGATIVE. Physical Exam - Vital signs Vitals: Temp Pulse Resp BP Pulse Ox 97.3 F 91 16 93/65 L 100 11/14/16 21:19 11/14/16 21:19 11/14/16 21:19 11/14/16 21:19 11/14/16 21:19 - Notes Notes: General Appearance: Well nourished, alert, cooperative, no acute distress, moderate obvious discomfort. Vitals: reviewed, See vital signs table. Head: no swelling or tenderness to the head Eyes: PERRL, EOMI, Conjuctiva clear Mouth: No decreasd moisture Neck: Supple, no neck tenderness, No thyromegaly Chest wall: Pain palpation over left lower ribs. No bruising over flank or chest wall. No swelling. Lungs: No wheezing, No rales, No rhonci, No accessory muscle use, good air exchange bilaterally. Heart: Normal rate, Regular rythm, No murmur, no rub Abdomen: Normal BS, soft, No rigidity, No abdominal tenderness, No guarding, no rebound, no abdominal masses, no organomegaly. No pain to palpation over left upper abdomen. Extremities: strength 5/5 in all extremities, good pulses in all extremities, no swelling or tenderness in the extremities, no edema. Skin: warm, dry, appropriate color, no rash Neuro: speech clear, oriented x 3, normal affect, responds appropriately to questions. Course - Vital Signs Vital signs: Temp Pulse Resp BP Pulse Ox 97.3 F 88 16 104/64 97 11/14/16 21:48 11/14/16 21:48 11/14/16 21:48 11/14/16 21:48 11/14/16 21:48 - Laboratory Laboratory results interpreted by me: 11/15/16 00:46 POC Glucose 166 H - Transfer of Care Notes: 11/15/16 01:23 Patient will be discharged home. Patient's x-ray shows no evidence of rib fracture. Her lung can are clear. She has no fever. She has no reproducible pain to palpation of her abdomen. I do not suspect splenic injury she has no reproducible pain to palpation of her abdomen. She has no bruising to her chest wall or abdomen. She will be discharged home. I will not refill her any narcotic prescriptions. Says for many reasons. First of all she is artery on pain management. Second of all she initially told me that she had not had a prescription in a while for her Dilaudid because her doctor was sick; however, the [place] controlled substance reporting database shows that she just filled a prescription of Sixty Dilaudid 8 mg tablets one week ago. I informed patient of this. Patient then tells me that she excess 4 tablets left at home. I informed her that she had just told me many times that she had 0 tablets. Patient then changes his story again and says that she thinks her son stole her medications. This time I do not think it's appropriate to prescribe her any further opiate medications. Patient will be given a shot of Toradol. She will be discharged home with incentive spirometer. She's encouraged return to ER shows difficulty breathing, fevers, or severe abdominal pain. Patient agrees with plan will be discharged home. Dictation of this chart was performed using voice recognition software; therefore, there may be some unintended grammatical errors. Discharge - Discharge Clinical Impression: Contusion of rib on left side Qualifiers: Encounter type: initial encounter Qualified Code(s): S20.212A - Contusion of left front wall of thorax, initial encounter Condition: Good Disposition: HOME, SELF-CARE Additional Instructions: Rib Contusion You have been diagnosed as having bruised ribs. It will usually take a few weeks for these injured ribs to heal. You should cough or take a deep breath at least every hour or two to prevent lung complications. You should not engage in any strenuous physical activity until released by your physician. The usual rule is "if it hurts, don' t do it." Return if you develop any of the following: (1) Fever or chills. (2) Persistent cough, coughing up blood, or shortness of breath. (3) Increasing pain. (4) Weakness, lightheadedness, or fainting. Please return to ER immediately if you have difficulty breathing, fevers, severe pain your abdomen, or feel unwell. Please follow closely with your doctor in 1-2 days for close reevaluation. Referrals: TUCKER WESTFALL MD [Primary Care Provider] - 11/16/16
[2016-11-15] MEDS ORDERED: KETOROLAC TROMETHAMINE 60 MG/2 ML SDV IM ONE ×2 (01:23→01:26)
[2016-11-15 02:17] VITALS: BP 110/78
== END 2016-11-15 02:05 | disposition home or self-care (01) ==
LOC: ER 20:56
DX: S20.212A Contusion of left front wall of thorax, initial encounter (principal); R07.81 Pleurodynia; W10.8XXA Fall (on) (from) other stairs and steps, initial encounter; R53.83 Other fatigue; I25.10 Atherosclerotic heart disease of native coronary artery without angina pectoris; I25.2 Old myocardial infarction; I10 Essential (primary) hypertension; J44.9 Chronic obstructive pulmonary disease, unspecified; E11.9 Type 2 diabetes mellitus without complications; F17.200 Nicotine dependence, unspecified, uncomplicated; Z98.61 Coronary angioplasty status; Z88.2 Allergy status to sulfonamides; Z79.891 Long term (current) use of opiate analgesic; Z86.73 Personal history of transient ischemic attack (TIA), and cerebral infarction without residual deficits
CPT/HCPCS: 99284; 96372; 82962; 71101; 70450; J1885

== ENCOUNTER 2017-03-03 14:27 | Observation (INO) | payer MEDICARE, MEDICAID ==
[2017-03-03 16:09] LABS: HEMATOCRIT 36.4 % (36.0-47.0); HEMOGLOBIN 12.3 g/dL (12.0-15.5); HGB HCT DIFFERENCE 0.5; MEAN CORPUSCULAR HEMOGLOBIN 31.4 pg (27.0-33.4); MEAN CORPUSCULAR HGB CONC 33.9 g/dL (32.0-36.0); MEAN CORPUSCULAR VOLUME 93 fl (80-97); RED BLOOD COUNT 3.93 10^6/uL (3.72-5.28); WHITE BLOOD COUNT 7.2 10^3/uL (4.0-10.5)
[2017-03-03 16:27] LABS: ALANINE AMINOTRANSFERASE 21 U/L (9-52); ALBUMIN 3.9 g/dL (3.5-5.0); ALKALINE PHOSPHATASE 120 U/L (38-126); ANION GAP 12 (5-19); ASPARTATE AMINO TRANSFERASE 20 U/L (14-36); BILIRUBIN,DIRECT 0.3 mg/dL (0.0-0.4); BILIRUBIN,TOTAL 0.4 mg/dL (0.2-1.3); BLOOD UREA NITROGEN 13 mg/dL (7-20); CALCIUM 9.2 mg/dL (8.4-10.2); CARBON DIOXIDE 26 mmol/L (22-30); CHLORIDE 103 mmol/L (98-107); CREATINE KINASE 38 U/L (30-135); CREATININE RESULT 0.88 mg/dL (0.52-1.25); GLUCOSE 204 mg/dL (75-110); POTASSIUM 4.1 mmol/L (3.6-5.0); SODIUM 140.7 mmol/L (137-145); TOTAL PROTEIN 7.5 g/dL (6.3-8.2)
[2017-03-03 16:38] LABS: CREATINE KINASE MB 0.46 ng/mL (<4.55); TROPONIN I 0.014 ng/mL
--- NOTE | 2017-03-03 16:54 | RADIOLOGY REPORT (SQ) ---
EXAM DESCRIPTION: CHEST SINGLE VIEW COMPLETED DATE/TIME: 03/03/2017 4:41 pm REASON FOR STUDY: CHEST PAIN COMPARISON: 09/24/2016 EXAM PARAMETERS: NUMBER OF VIEWS: One view. TECHNIQUE: Single frontal radiographic view of the chest acquired. RADIATION DOSE: NA LIMITATIONS: None. FINDINGS: LUNGS AND PLEURA: No opacities, masses or pneumothorax. No pleural effusion. MEDIASTINUM AND HILAR STRUCTURES: No masses. Contour normal. HEART AND VASCULAR STRUCTURES: Heart normal in size. Normal vasculature. BONES: No acute findings. HARDWARE: None in the chest. OTHER: No other significant finding. IMPRESSION: NO ACUTE RADIOGRAPHIC FINDING IN THE CHEST. TECHNICAL DOCUMENTATION: JOB ID: [id number]
[2017-03-03] MEDS ORDERED: INSULIN LISPRO 100 UNIT/ML 3 ML VIAL SUBCUT PRN (17:16)
[2017-03-03] MEDS ORDERED: DEXTROSE 40% GEL 15 GM TUBE X 2 PO PRN (17:16)
[2017-03-03] MEDS ORDERED: DEXTROSE 50%-WATER SYRINGE 12.5 GM/25 ML DOSE IV PRN (17:16)
[2017-03-03] MEDS ORDERED: DEXTROSE 50%-WATER SYRINGE 25 GM/50 ML DOSE IV PRN (17:16)
[2017-03-03] MEDS ORDERED: GLUCAGON,HUMAN RECOMB 1 MG INJ IM PRN (17:16)
[2017-03-03] MEDS ORDERED: DEXTROSE 40% GEL 15 GM TUBE PO PRN (17:16)
[2017-03-03] MEDS ORDERED: ONDANSETRON HCL INJ/PF 4 MG/2 ML SDV IV PRN (19:36)
[2017-03-03] MEDS ORDERED: (PENDING PHARMACY ID) (Tizanidine Hcl [Zanaflex] 4 MG) PO PRN (19:54)
[2017-03-03] MEDS ORDERED: ONDANSETRON HCL 8 MG TABLET PO PRN (19:54)
[2017-03-03] MEDS ORDERED: TIZANIDINE HCL 4 MG TABLET PO PRN (19:56)
[2017-03-03] MEDS: HYDROMORPHONE HCL 2 MG TABLET PO SCH (21:10)
[2017-03-04 01:04] LABS: CREATINE KINASE MB 0.38 ng/mL (<4.55)
[2017-03-04 01:09] LABS: TROPONIN I < 0.012 ng/mL
--- NOTE | 2017-03-04 03:56 | EKG REPORT ---
SEVERITY:- OTHERWISE NORMAL ECG - SINUS RHYTHM BORDERLINE LEFT AXIS DEVIATION : Confirmed by: Angie Gaston MD 04-Mar-2017 03:55:39
[2017-03-04] MEDS ORDERED: ACETAMINOPHEN 325 MG TABLET ONE (06:49)
[2017-03-04] MEDS ORDERED: ACETAMINOPHEN 325 MG TABLET PO PRN (08:35)
[2017-03-04 08:41] LABS: CREATINE KINASE MB 0.44 ng/mL (<4.55)
[2017-03-04 08:45] LABS: TROPONIN I < 0.012 ng/mL
[2017-03-04] MEDS: BACLOFEN 10 MG TABLET PO SCH ×2 (09:42→18:39)
[2017-03-04] MEDS: HYDROMORPHONE HCL 2 MG TABLET PO SCH (09:42)
[2017-03-04] MEDS ORDERED: HYDROMORPHONE HCL 8 MG PO SCH (10:00)
--- NOTE | 2017-03-04 17:33 | PDOC H&P ---
History of Present Illness Admission Date/PCP: 03/03/17 14:27 TUCKER WESTFALL MD History of Present Illness: JORGE ROBERT is a 56 year old female, she was ischemic heart disease, type 2 diabetes mellitus, tobacco abuse, she came to the office because of chest pain, the chest pain is atypical in character it is not provoked by activity. She was admitted for evaluation of the chest pain because she has a history of ischemic heart disease, continued tobacco abuse, uncontrolled type 2 diabetes mellitus, sedentary lifestyle. Past Medical History Cardiac Medical History: Reports: Coronary Artery Disease, Myocardial Infarction - x4, Hypertension Pulmonary Medical History: Reports: Chronic Obstructive Pulmonary Disease (COPD) Endocrine Medical History: Reports: Diabetes Mellitus Type 2 GI Medical History: Reports: Hepatitis - Hepatitis C Musculoskeltal Medical History: Reports: Arthritis Psychiatric Medical History: Reports: Bipolar Disorder, Depression, Post Traumatic Stress Disorder Past Surgical History Past Surgical History: Reports: Appendectomy, Cardiac Catheterization, Cholecystectomy, Coronary Stent - 1 drug eluding stent in the LAD, Hysterectomy Social History Smoking Status: Current Every Day Smoker Cigarettes Packs Per Day: 1 Frequency of Alcohol Use: None Hx Recreational Drug Use: No Drugs: None Hx Prescription Drug Abuse: No Family History Family History: Reviewed & Not Pertinent Parental Family History Reviewed: Yes Children Family History Reviewed: Yes Sibling(s) Family History Reviewed.: Yes Medication/Allergy Home Medications: Baclofen [Baclofen 10 mg Tablet] 10 mg PO BID 03/03/17 Hydromorphone HCl [Hydromorphone ER] 8 mg PO BID 03/03/17 Ondansetron HCl [Zofran 8 mg Tablet] 8 mg PO QIDP PRN 03/03/17 Tizanidine HCl [Zanaflex] 4 mg PO BIDP PRN 03/03/17 Allergies/Adverse Reactions: Sulfa (Sulfonamide Antibiotics) Adverse Reaction (Unknown, Verified 11/14/16 21: 54) Review of Systems Constitutional: ABSENT: chills, fever(s), headache(s), weight gain, weight loss Eyes: ABSENT: visual disturbances Ears: ABSENT: hearing changes Cardiovascular: PRESENT: chest pain Respiratory: ABSENT: cough, hemoptysis Gastrointestinal: ABSENT: abdominal pain, constipation, diarrhea, hematemesis, hematochezia, nausea, vomiting Genitourinary: ABSENT: dysuria, hematuria Musculoskeletal: ABSENT: joint swelling Integumentary: ABSENT: rash, wounds Neurological: ABSENT: abnormal gait, abnormal speech, confusion, dizziness, focal weakness, syncope Psychiatric: ABSENT: anxiety, depression, homidical ideation, suicidal ideation Endocrine: ABSENT: cold intolerance, heat intolerance, menstrual abnormalities, polydipsia, polyuria Hematologic/Lymphatic: ABSENT: easy bleeding, easy bruising, lymphadenopathy Physical Exam Vital Signs: Temp Pulse Resp BP Pulse Ox 98.2 F 72 18 147/77 H 100 03/04/17 11:24 03/04/17 11:24 03/04/17 11:24 03/04/17 11:24 03/04/17 11:24 Intake & Output 03/03/17 03/04/17 03/05/17 06:59 06:59 06:59 Intake Total 325 Balance 325 Weight 78.1 kg General appearance: PRESENT: no acute distress, well-developed, well-nourished Head exam: PRESENT: atraumatic, normocephalic Eye exam: PRESENT: conjunctiva pink, EOMI, PERRLA Ear exam: PRESENT: normal external ear exam Mouth exam: PRESENT: moist, tongue midline Neck exam: PRESENT: full ROM Respiratory exam: PRESENT: clear to auscultation jeannie Cardiovascular exam: PRESENT: RRR, +S1, +S2 Pulses: PRESENT: normal dorsalis pedis pul, +2 pedal pulses bilateral Vascular exam: PRESENT: normal capillary refill GI/Abdominal exam: PRESENT: normal bowel sounds, soft Rectal exam: PRESENT: deferred Neurological exam: PRESENT: alert, awake, oriented to person, oriented to place , oriented to time, oriented to situation, CN II-XII grossly intact. ABSENT: motor sensory deficit Psychiatric exam: PRESENT: appropriate affect, normal mood. ABSENT: homicidal ideation, suicidal ideation Skin exam: PRESENT: dry, intact, warm Results Laboratory Results: 03/03/17 16:00 03/03/17 16:00 03/03/17 03/03/17 03/04/17 16:00 16:00 00:15 Creatine Kinase 38 35 CK-MB (CK-2) 0.46 Troponin I 0.014 03/04/17 03/04/17 03/04/17 00:15 08:08 08:08 Creatine Kinase 36 CK-MB (CK-2) 0.38 0.44 Troponin I < 0.012 < 0.012 Impressions: Chest X-Ray 03/03/17 00:00 IMPRESSION: NO ACUTE RADIOGRAPHIC FINDING IN THE CHEST. Assessment & Plan - Diagnosis (1) Chest pain Qualifiers: Chest pain type: other chest pain Qualified Code(s): R07.89 - Other chest pain; R07.8 - Other chest pain Is this a current diagnosis for this admission?: YesPlan: She is admitted for observation and management of chest pain (2) Chest pain Qualifiers: Chest pain type: unspecified Qualified Code(s): R07.9 - Chest pain, unspecified Is this a current diagnosis for this admission?: Yes (3) Anxiety and depression Is this a current diagnosis for this admission?: Yes (4) CAD (coronary artery disease) Qualifiers: Coronary Disease-Associated Artery/Lesion type: [place] artery [place] vs. transplanted heart: [place] heart Associated angina: without angina Qualified Code(s): I25.10 - Atherosclerotic heart disease of [place] coronary artery without angina pectoris Is this a current diagnosis for this admission?: Yes (5) COPD (chronic obstructive pulmonary disease) Qualifiers:
[2017-03-04] MEDS ORDERED: ONDANSETRON HCL 8 MG TABLET PO PRN (19:21)
[2017-03-04] MEDS ORDERED: (PENDING PHARMACY ID) (Dulaglutide [Trulicity] 0.75 MG) SQ PRN (19:21)
[2017-03-04] MEDS ORDERED: (PENDING PHARMACY ID) (Isosorbide Dinitrate [Isosorbide Dinitrate] 30 MG) PO SCH (19:30)
[2017-03-04] MEDS ORDERED: (PENDING PHARMACY ID) (Gabapentin Enacarbil [Horizant] 600 MG) PO SCH (19:30)
--- NOTE | 2017-03-04 19:36 | PDOC DISCHARGE SUMMARY ---
General - Admit/Disc Date/PCP Admission Date/Primary Care Provider: 03/03/17 14:27 TUCKER WESTFALL MD Discharge Date: 03/04/17 - Discharge Diagnosis (1) Chest pain Is this a current diagnosis for this admission?: Yes (2) Anxiety and depression Is this a current diagnosis for this admission?: Yes (3) CAD (coronary artery disease) Is this a current diagnosis for this admission?: Yes (4) COPD (chronic obstructive pulmonary disease) Is this a current diagnosis for this admission?: Yes (5) Diabetes mellitus Is this a current diagnosis for this admission?: Yes - Additional Information Home Medications: Hydromorphone HCl [Hydromorphone ER] 8 mg PO BID 03/03/17 Alprazolam 1 mg PO QHS #0 tablet 03/04/17 Atorvastatin Calcium 40 mg PO DAILY #0 tablet 03/04/17 Baclofen [Baclofen 10 mg Tablet] 10 mg PO BID #0 tablet 03/04/17 Baclofen [Baclofen 10 mg Tablet] 10 mg PO BID #0 tablet 03/04/17 Dulaglutide [Trulicity] 0.75 mg SQ ASDIR PRN #0 ml MDD weekly 03/04/17 Gabapentin Enacarbil [Horizant] 600 mg PO DAILY #0 tab.er.24h 03/04/17 Insulin Detemir [Levemir Insulin 100 units/mL] 1 unit SUBCUT QHS #0 insuln.pen 03/04/17 Isosorbide Dinitrate 30 mg PO DAILY #0 tablet 03/04/17 Isosorbide Dinitrate [Isosorbide Dinitrate] 30 mg PO DAILY #0 03/04/17 Levothyroxine Sodium [Synthroid 0.075 mg Tablet] 0.075 mg PO DAILY 03/04/17 Ondansetron HCl 8 mg PO Q6HP PRN #0 tablet 03/04/17 Ondansetron HCl [Zofran 8 mg Tablet] 8 mg PO QIDP PRN #0 tablet 03/04/17 Tizanidine HCl 4 mg PO TID #0 tablet 03/04/17 Umeclidinium Brm/Vilanterol Tr [Anoro Ellipta 62.5-25 Mcg INH] 25 - 62.5 mcg IN DAILY #0 disk.w.dev 03/04/17 Valsartan [Diovan 80 mg Tablet] 80 mg PO DAILY #30 tablet 03/04/17 Zolpidem Tartrate 5 mg PO Q6HP PRN #0 tablet 03/04/17 History of Present Illness History of Present Illness: JORGE ROBERT is a 56 year old female, she was ischemic heart disease, type 2 diabetes mellitus, tobacco abuse, she came to the office because of chest pain, the chest pain is atypical in character it is not provoked by activity. She was admitted for evaluation of the chest pain because she has a history of ischemic heart disease, continued tobacco abuse, uncontrolled type 2 diabetes mellitus, sedentary lifestyle. Hospital Course Hospital Course: She was admitted for evaluation of chest pain, cardiac enzymes were negative for acute myocardial Infarction. She wants to go home she will be discharged home we will arrange outpatient stress test Physical Exam Vital Signs: Temp Pulse Resp BP Pulse Ox 97.7 F 66 18 166/52 H 100 03/04/17 16:16 03/04/17 16:16 03/04/17 16:16 03/04/17 16:16 03/04/17 16:16 Intake & Output 03/03/17 03/04/17 03/05/17 06:59 06:59 06:59 Intake Total 325 707 Balance 325 707 Weight 78.1 kg General appearance: PRESENT: no acute distress, well-developed, well-nourished Head exam: PRESENT: atraumatic, normocephalic Eye exam: PRESENT: conjunctiva pink, EOMI, PERRLA. ABSENT: scleral icterus Ear exam: PRESENT: normal external ear exam Mouth exam: PRESENT: moist, tongue midline Neck exam: PRESENT: full ROM. ABSENT: carotid bruit, JVD, lymphadenopathy, thyromegaly Respiratory exam: PRESENT: clear to auscultation jeannie Cardiovascular exam: PRESENT: RRR, +S1, +S2. ABSENT: diastolic murmur, rubs, systolic murmur Pulses: PRESENT: normal dorsalis pedis pul, +2 pedal pulses bilateral Vascular exam: PRESENT: normal capillary refill GI/Abdominal exam: PRESENT: normal bowel sounds, soft. ABSENT: distended, guarding, mass, organolmegaly, rebound, tenderness Rectal exam: PRESENT: deferred Neurological exam: PRESENT: alert, awake, oriented to person, oriented to place , oriented to time, oriented to situation, CN II-XII grossly intact. ABSENT: motor sensory deficit Psychiatric exam: PRESENT: appropriate affect, normal mood. ABSENT: homicidal ideation, suicidal ideation Skin exam: PRESENT: dry, intact, warm. ABSENT: cyanosis, rash Results Laboratory Results: 03/03/17 16:00 03/03/17 16:00 03/03/17 03/03/17 03/04/17 16:00 16:00 00:15 Creatine Kinase 38 35 CK-MB (CK-2) 0.46 Troponin I 0.014 03/04/17 03/04/17 03/04/17 00:15 08:08 08:08 Creatine Kinase 36 CK-MB (CK-2) 0.38 0.44 Troponin I < 0.012 < 0.012 Impressions: Chest X-Ray 03/03/17 00:00 IMPRESSION: NO ACUTE RADIOGRAPHIC FINDING IN THE CHEST.
[2017-03-04 19:54] VITALS: BP 178/87
[2017-03-04] MEDS ORDERED: LEVOTHYROXINE SODIUM 0.075 MG TABLET PO ONE (20:00)
[2017-03-04] MEDS ORDERED: ISOSORBIDE DINITRATE 10 MG TABLET PO ONE (20:30)
[2017-03-04] MEDS ORDERED: ATORVASTATIN CALCIUM 40 MG TABLET PO SCH (22:00)
[2017-03-04] MEDS ORDERED: ALPRAZOLAM 0.5 MG TABLET PO SCH (22:00)
[2017-03-04] MEDS ORDERED: INSULIN DETEMIR 100 UNIT/ML 3 ML PEN SUBCUT SCH (22:00)
[2017-03-04] MEDS ORDERED: (PENDING PHARMACY ID) (Alprazolam [Alprazolam] 1 MG) PO SCH (22:00)
[2017-03-05] MEDS ORDERED: LEVOTHYROXINE SODIUM 0.075 MG TABLET PO SCH (08:00)
[2017-03-05] MEDS ORDERED: ISOSORBIDE DINITRATE 10 MG TABLET PO SCH (10:00)
== END 2017-03-04 20:01 | disposition home or self-care (01) ==
LOC: 3N 14:27
PROVIDERS: ADMIT Internal Medicine; ATTEND Internal Medicine
DX: R07.89 Other chest pain (principal); F41.9 Anxiety disorder, unspecified; F32.9 Major depressive disorder, single episode, unspecified; I25.10 Atherosclerotic heart disease of native coronary artery without angina pectoris; J44.9 Chronic obstructive pulmonary disease, unspecified; E11.65 Type 2 diabetes mellitus with hyperglycemia; F17.210 Nicotine dependence, cigarettes, uncomplicated; M19.90 Unspecified osteoarthritis, unspecified site; I25.2 Old myocardial infarction; Z79.4 Long term (current) use of insulin; Z79.899 Other long term (current) drug therapy; Z86.19 Personal history of other infectious and parasitic diseases; Z95.5 Presence of coronary angioplasty implant and graft; Z90.49 Acquired absence of other specified parts of digestive tract; Z79.891 Long term (current) use of opiate analgesic
CPT/HCPCS: 36415 ×2; 82553 ×2; 82962 ×2; 82550 ×2; 85027; 80076; 80048; 84484 ×2; 83036; 85379; 71010; 93005; 93010; G0378 ×2; G0379; A9270 ×6; J2405; J1815; S0119

== ENCOUNTER 2017-12-23 09:41 | Inpatient (IN) | payer MEDICARE, MEDICAID ==
--- NOTE | 2017-12-23 11:05 | RADIOLOGY REPORT (SQ) ---
EXAM DESCRIPTION: CT HEAD WITHOUT COMPLETED DATE/TIME: 12/23/2017 10:54 am REASON FOR STUDY: syncope E10.8 TYPE 1 DIABETES MELLITUS WITH UNSPECIFIED COMPLICATION R55 SYNCOPE AND COLLAPSE I10 ESSENTIAL (PRIMARY) HYPERTENSION COMPARISON: [address] brain exams since 11/26/2010, most recently 11/15/2016 TECHNIQUE: Axial images acquired through the brain without intravenous contrast. Images reviewed wi th bone, brain and subdural windows. Additional sagittal and coronal reconstructions were generated. Images stored on PACS. All CT scanners at this facility use dose modulation, iterative reconstruction, and/or weight based d osing when appropriate to reduce radiation dose to as low as reasonably achievable (ALARA). [facility]: Dose Right [facility]: CareDose [facility]: Dose Right [facility]: Teradose 4D [facility]: SpiceCSM RADIATION DOSE: CT Rad equipment meets quality standard of care and radiation dose reduction techniq ues were employed. CTDIvol: 48.5 mGy. DLP: 854 mGy-cm. mGy. LIMITATIONS: None. FINDINGS: VENTRICLES: Normal size and contour. CEREBRUM: No masses. No hemorrhage. No midline shift. No evidence for acute infarction. Normal gra y/white matter differentiation. No areas of low density in the white matter. CEREBELLUM: No masses. No hemorrhage. No alteration of density. No evidence for acute infarction. EXTRAAXIAL SPACES: No fluid collections. No masses. ORBITS AND GLOBE: No intra- or extraconal masses. Normal contour of globe without masses. CALVARIUM: No fracture. PARANASAL SINUSES: No fluid or mucosal thickening. SOFT TISSUES: No mass or hematoma. OTHER: No other significant finding. IMPRESSION: NORMAL BRAIN CT WITHOUT CONTRAST. EVIDENCE OF ACUTE STROKE: NO. COMMENT: Quality ID # [id number]: Final reports with documentation of one or more dose reduction techniques (e.g., Automated exposure control, adjustment of the mA and/or kV according to patient size, use of iterative reconstruction technique) TECHNICAL DOCUMENTATION: JOB ID: [id number] [employer]- All Rights Reserved Reading location - IP/workstation name: [email or web address]
--- NOTE | 2017-12-23 11:10 | RADIOLOGY REPORT (SQ) ---
EXAM DESCRIPTION: CHEST SINGLE VIEW COMPLETED DATE/TIME: 12/23/2017 11:01 am REASON FOR STUDY: syncope COMPARISON: CT chest 04/24/2016 AP chest 09/24/2016, 03/03/2017 EXAM PARAMETERS: NUMBER OF VIEWS: One view. TECHNIQUE: Single frontal radiographic view of the chest acquired. RADIATION DOSE: NA LIMITATIONS: None. FINDINGS: LUNGS AND PLEURA: No opacities, masses or pneumothorax. No pleural effusion. MEDIASTINUM AND HILAR STRUCTURES: No masses. Contour normal. HEART AND VASCULAR STRUCTURES: Heart normal in size. Normal vasculature. BONES: No acute findings. HARDWARE: None in the chest. OTHER: No other significant finding. IMPRESSION: NO ACUTE RADIOGRAPHIC FINDING IN THE CHEST. TECHNICAL DOCUMENTATION: JOB ID: [id number] [employer]- All Rights Reserved Reading location - IP/workstation name: [email or web address]
[2017-12-23] MEDS ORDERED: NITROGLYCERIN 50 MG/D5W 250 ML IV PRN (12:06)
[2017-12-23 12:09] LABS: ABSOLUTE BASOPHILS # (AUTO) 0.1 10^3/uL (0.0-0.2); ABSOLUTE EOSINOPHILS # (AUTO) 0.1 10^3/uL (0.0-0.6); ABSOLUTE LYMPHOCYTES (AUTO) 2.2 10^3/uL (0.5-4.7); ABSOLUTE MONOCYTES (AUTO) 0.5 10^3/uL (0.1-1.4); ABSOLUTE NEUT (AUTO) 5.1 10^3/uL (1.7-8.2); BASOPHILS % (AUTO) 0.7 % (0-2); EOSINOPHILS % (AUTO) 1.6 % (0-6); HEMATOCRIT 42.7 % (36.0-47.0); HEMOGLOBIN 14.6 g/dL (12.0-15.5); LYMPHOCYTES % (AUTO) 27.4 % (13-45); MEAN CORPUSCULAR HEMOGLOBIN 31.5 pg (27.0-33.4); MEAN CORPUSCULAR HGB CONC 34.2 g/dL (32.0-36.0); MEAN CORPUSCULAR VOLUME 92 fl (80-97); MONOCYTES % (AUTO) 5.9 % (3-13); PLATELET COUNT 218 10^3/uL (150-450); RED BLOOD COUNT 4.64 10^6/uL (3.72-5.28); RED CELL DISTRIBUTION WIDTH 13.1 % (11.5-14.0); SEGMENTED NEUTROPHILS % (AUTO) 64.4 % (42-78); TOTAL CELLS COUNTED % (AUTO) 100 %; WHITE BLOOD COUNT 7.9 10^3/uL (4.0-10.5)
[2017-12-23] MEDS ORDERED: GLUCAGON,HUMAN RECOMB 1 MG INJ IM PRN (12:09)
[2017-12-23] MEDS ORDERED: DEXTROSE 40% GEL 15 GM TUBE X 2 PO PRN (12:09)
[2017-12-23] MEDS ORDERED: DEXTROSE 40% GEL 15 GM TUBE PO PRN (12:09)
[2017-12-23] MEDS ORDERED: DEXTROSE 50%-WATER SYRINGE 12.5 GM/25 ML DOSE IV PRN (12:09)
[2017-12-23] MEDS ORDERED: DEXTROSE 50%-WATER SYRINGE 25 GM/50 ML DOSE IV PRN (12:09)
[2017-12-23 12:19] LABS: APPEARANCE,URINE SLIGHTLY-CLOUDY; BILIRUBIN,URINE NEGATIVE (NEGATIVE); COLOR,URINE YELLOW; GLUCOSE, URINE 150 mg/dL (NEGATIVE); KETONES,URINE NEGATIVE (NEGATIVE); LEUKOCYTE ESTERASE,URINE SMALL (NEGATIVE); NITRITE,URINE POSITIVE (NEGATIVE); PROTEIN,URINE NEGATIVE (NEGATIVE); URINE SPECIFIC GRAVITY 1.014; UROBILINOGEN,URINE NEGATIVE mg/dL (<2.0)
[2017-12-23 12:36] LABS: ALANINE AMINOTRANSFERASE 37 U/L (9-52); ALBUMIN 4.7 g/dL (3.5-5.0); ALKALINE PHOSPHATASE 110 U/L (38-126); ANION GAP 19 (5-19); ASPARTATE AMINO TRANSFERASE 28 U/L (14-36); BILIRUBIN,DIRECT 0.3 mg/dL (0.0-0.4); BILIRUBIN,TOTAL 0.3 mg/dL (0.2-1.3); BLOOD UREA NITROGEN 18 mg/dL (7-20); CARBON DIOXIDE 22 mmol/L (22-30); CHLORIDE 104 mmol/L (98-107); CREATINE KINASE 23 U/L (30-135); GLUCOSE 225 mg/dL (75-110); POTASSIUM 4.3 mmol/L (3.6-5.0); SODIUM 145.3 mmol/L (137-145); TOTAL PROTEIN 8.7 g/dL (6.3-8.2)
[2017-12-23 12:46] LABS: CREATINE KINASE MB < 0.22 ng/mL (<4.55); TROPONIN I < 0.012 ng/mL
[2017-12-23 12:49] LABS: FREE T4 (FREE THYROXINE) 0.99 ng/dL (0.78-2.19)
[2017-12-23 13:03] LABS: THYROID STIMULATING HORMONE 3.5 uIU/mL (0.47-4.68)
[2017-12-23] MEDS ORDERED: NITROGLYCERIN/D5W 50 MG/250 ML RTUINJ IV ONE (13:15)
--- NOTE | 2017-12-23 13:37 | EKG REPORT ---
SEVERITY:- OTHERWISE NORMAL ECG - SINUS RHYTHM BORDERLINE LEFT AXIS DEVIATION : Confirmed by: Tano Rodgers MD 23-Dec-2017 13:35:53
[2017-12-23] MEDS ORDERED: NITROGLYCERIN 0.4 MG/TAB 25 TAB/BOTTLE SL PRN (15:40)
[2017-12-23] MEDS ORDERED: FUROSEMIDE 40 MG TABLET PO PRN (15:40)
[2017-12-23] MEDS ORDERED: TIZANIDINE HCL 4 MG TABLET PO PRN (15:40)
[2017-12-23] MEDS ORDERED: GABAPENTIN ENACARBIL 1200 MG PO PRN (15:40)
[2017-12-23] MEDS ORDERED: INSULIN DETEMIR 100 UNIT/ML 3 ML PEN SUBCUT PRN (15:40)
[2017-12-23] MEDS ORDERED: ALBUTEROL SULFATE 0.083% NEB 2.5 MG/3 ML AMPUL NEB PRN (15:40)
[2017-12-23] MEDS ORDERED: INSULIN LISPRO 5 UNIT SQ SCH (17:00)
[2017-12-23] MEDS: INSULIN LISPRO 100 UNIT/ML 3 ML VIAL SUBCUT SCH (17:50)
[2017-12-23] MEDS: INSULIN LISPRO 100 UNIT/ML 3 ML VIAL SUBCUT PRN (17:54)
[2017-12-23] MEDS: HYDROMORPHONE HCL 2 MG TABLET PO SCH ×2 (17:55→23:33)
[2017-12-23] MEDS: ONDANSETRON HCL 8 MG TABLET PO PRN ×2 (17:56→23:37)
[2017-12-23] MEDS: LACTULOSE SYRUP 20 GM/30 ML UDCUP PO SCH (17:57)
[2017-12-23] MEDS: BACLOFEN 20 MG TABLET PO SCH (19:22)
[2017-12-23 20:07] LABS: CREATINE KINASE MB < 0.22 ng/mL (<4.55); TROPONIN I < 0.012 ng/mL
[2017-12-23] MEDS ORDERED: CIPROFLOXACIN 400 MG/D5W RTU 400 MG/200 ML RTUPB IV SCH (22:00)
[2017-12-23] MEDS ORDERED: HYDROMORPHONE HCL 8 MG PO SCH (22:00)
[2017-12-23] MEDS: ZOLPIDEM TARTRATE 5 MG TABLET PO PRN (23:33)
[2017-12-24 03:13] LABS: CREATINE KINASE MB < 0.22 ng/mL (<4.55); TROPONIN I < 0.012 ng/mL
[2017-12-24] MEDS: LEVOTHYROXINE SODIUM 0.075 MG TABLET PO SCH (05:42)
[2017-12-24] MEDS: CIPROFLOXACIN 400 MG/D5W RTU 400 MG/200 ML RTUPB IV SCH ×2 (05:42→17:32)
[2017-12-24] MEDS: HYDROMORPHONE HCL 2 MG TABLET PO SCH ×3 (05:42→17:31)
[2017-12-24] MEDS: ONDANSETRON HCL 8 MG TABLET PO PRN (07:45)
[2017-12-24] MEDS: GLIMEPIRIDE 4 MG TABLET PO SCH (07:45)
[2017-12-24] MEDS: INSULIN LISPRO 100 UNIT/ML 3 ML VIAL SUBCUT SCH ×3 (07:46→16:26)
[2017-12-24] MEDS: INSULIN LISPRO 100 UNIT/ML 3 ML VIAL SUBCUT PRN (07:48)
[2017-12-24] MEDS: INSULIN DETEMIR 100 UNIT/ML 3 ML PEN SUBCUT SCH (07:49)
[2017-12-24] MEDS ORDERED: METOPROLOL SUCCINATE 50 MG TAB.SR.24H PO ONE ×2 (08:45→09:30)
[2017-12-24] MEDS: HYDROCHLOROTHIAZIDE 25 MG TABLET PO SCH (09:35)
[2017-12-24] MEDS: BACLOFEN 20 MG TABLET PO SCH ×2 (09:35→17:31)
[2017-12-24] MEDS: ASPIRIN 81 MG TABLET, ENT COATED PO SCH (09:36)
[2017-12-24] MEDS: ATORVASTATIN CALCIUM 40 MG TABLET PO SCH (09:36)
[2017-12-24] MEDS: LOSARTAN POTASSIUM 50 MG TABLET PO SCH (09:36)
[2017-12-24] MEDS ORDERED: (PENDING PHARMACY ID) (Linaclotide [Linzess] 72 MCG) PO SCH (10:00)
[2017-12-24] MEDS ORDERED: (PENDING PHARMACY ID) (Losartan/Hydrochlorothiazide [Losartan-Hctz 100-25 Mg Tab] 1 EACH) PO SCH (10:00)
[2017-12-24] MEDS: LACTULOSE SYRUP 20 GM/30 ML UDCUP PO SCH ×2 (11:57→17:32)
--- NOTE | 2017-12-24 14:40 | PDOC H&P ---
History of Present Illness Admission Date/PCP: 12/23/17 09:41 TUCKER WESTFALL MD History of Present Illness: JORGE ROBERT is a 57 year old female, she has a history of coronary artery disease, gastroparesis, chronic pain syndrome from lumbar radiculopathy, she came to the office as same day urgent visit for evaluation of persistent vomiting, where she was in triage at the nurses station in the office she felt dizzy, the blood pressure recorded was severely elevated it was in the emergency hypertensive range 220 systolic. She did not actually lose consciousness but she feels like she is going to faint. She was admitted directly from the office to the hospital for management she is started on intravenous nitroglycerin infusion she has a history of gastroparesis with episode of vomiting and nausea. She recently moved out of [facility] to [facility] she actually lives in [place], she drove all the way from [place] to see us in [facility]. She was admitted previously in this hospital for symptomatic gastroparesis with nausea and vomiting she also has chronic urinary incontinence, she does self-catheterization for urination, the urinalysis that was done showed bacteriuria, pyuria does suggest urinary tract infection. Past Medical History Cardiac Medical History: Reports: Coronary Artery Disease, Myocardial Infarction - x4, Hypertension Pulmonary Medical History: Reports: Chronic Obstructive Pulmonary Disease (COPD) Endocrine Medical History: Reports: Diabetes Mellitus Type 2 GI Medical History: Reports: Hepatitis - Hepatitis C Musculoskeltal Medical History: Reports: Arthritis Psychiatric Medical History: Reports: Bipolar Disorder, Depression, Post Traumatic Stress Disorder Past Surgical History Past Surgical History: Reports: Appendectomy, Cardiac Catheterization, Cholecystectomy, Coronary Stent - 1 drug eluding stent in the LAD, Hysterectomy Social History Smoking Status: Current Every Day Smoker Number of Years Smokin Last Time Smoked: t Frequency of Alcohol Use: None Hx Recreational Drug Use: No Drugs: None Hx Prescription Drug Abuse: No Family History Family History: Reviewed & Not Pertinent Parental Family History Reviewed: Yes Children Family History Reviewed: Yes Sibling(s) Family History Reviewed.: Yes Medication/Allergy Home Medications: Albuterol Sulfate [Albuterol Sulfate 2.5mg/3 mL] 1 vial IH RTQ4HP PRN 12/23/17 Aspirin [Aspirin EC] 81 mg PO DAILY 12/23/17 Atorvastatin Calcium [Lipitor 40 mg Tablet] 40 mg PO DAILY 12/23/17 Baclofen [Baclofen 20 Mg Tablet] 20 mg PO BID 12/23/17 Dulaglutide [Trulicity] 1.5 mg SQ [facility]@1000 12/23/17 Furosemide [Lasix 40 mg Tablet] 40 mg PO DAILYP PRN 12/23/17 Gabapentin Enacarbil [Horizant] 1,200 mg PO Q12HP PRN 12/23/17 Glimepiride [Amaryl 4 mg Tablet] 4 mg PO QAM 12/23/17 Hydromorphone HCl [Hydromorphone ER] 8 mg PO Q12 12/23/17 Insulin Detemir [Levemir Flextouch] 52 unit SQ QAM 12/23/17 Insulin Detemir [Levemir Flextouch] 52 unit SQ QPMP PRN 12/23/17 Insulin Lispro [Humalog Kwikpen] 5 unit SQ MEALS 12/23/17 Lactulose [Cephulac 20 gm/30 ml Syrup UD Cup] 20 gm PO BID 12/23/17 Levothyroxine Sodium [Synthroid 0.075 mg Tablet] 0.075 mg PO Q6AM 12/23/17 Linaclotide [Linzess] 72 mcg PO DAILY 12/23/17 Losartan/Hydrochlorothiazide [Losartan-Hctz 100-25 mg Tab] 1 each PO DAILY 12/23 Nitroglycerin [Nitrostat 0.4 mg (1/150 Gr) Tabs 25/Bottle] 1 tab SL Q5MP PRN Ondansetron HCl [Zofran 8 mg Tablet] 8 mg PO QIDP PRN 12/23/17 Tizanidine HCl [Zanaflex 4 Mg Tablet] 8 mg PO BIDP PRN 12/23/17 Zolpidem Tartrate [Ambien Cr] 12.5 mg PO HSP PRN 12/23/17 Allergies/Adverse Reactions: Sulfa (Sulfonamide Antibiotics) Adverse Reaction (Unknown, Verified 11/14/16 21: 54) Review of Systems Constitutional: ABSENT: chills, fever(s), headache(s), weight gain, weight loss Eyes: ABSENT: visual disturbances Ears: ABSENT: hearing changes Cardiovascular: ABSENT: chest pain, dyspnea on exertion, edema, orthropnea, palpitations Respiratory: ABSENT: cough, hemoptysis Gastrointestinal: PRESENT: nausea, vomiting Genitourinary: PRESENT: dysuria Musculoskeletal: ABSENT: joint swelling Integumentary: ABSENT: rash, wounds Neurological: ABSENT: abnormal gait, abnormal speech, confusion, dizziness, focal weakness, syncope Psychiatric: ABSENT: anxiety, depression, homidical ideation, suicidal ideation Endocrine: ABSENT: cold intolerance, heat intolerance, menstrual abnormalities, polydipsia, polyuria Hematologic/Lymphatic: ABSENT: easy bleeding, easy bruising, lymphadenopathy Physical Exam Vital Signs: Temp Pulse Resp BP Pulse Ox 97.6 F 63 16 117/98 H 100 12/24/17 12:22 12/24/17 12:22 12/24/17 12:22 12/24/17 12:22 12/24/17 12:22 Intake & Output 12/23/17 12/24/17 12/25/17 06:59 06:59 06:59 Intake Total 1720 572 Output Total 900 Balance 1720 -328 Weight 70 kg General appearance: PRESENT: no acute distress, well-developed, well-nourished Head exam: PRESENT: atraumatic, normocephalic Eye exam: PRESENT: conjunctiva pink, EOMI, PERRLA Ear exam: PRESENT: normal external ear exam Mouth exam: PRESENT: moist, tongue midline Neck exam: PRESENT: full ROM Cardiovascular exam: PRESENT: RRR, +S1, +S2 Pulses: PRESENT: normal dorsalis pedis pul, +2 pedal pulses bilateral Vascular exam: PRESENT: normal capillary refill GI/Abdominal exam: PRESENT: normal bowel sounds, soft Rectal exam: PRESENT: deferred Neurological exam: PRESENT: alert, awake, oriented to person, oriented to place , oriented to time, oriented to situation, CN II-XII grossly intact Psychiatric exam: PRESENT: appropriate affect, normal mood Skin exam: PRESENT: dry, intact, warm. ABSENT: cyanosis, rash Results Laboratory Results: 12/23/17 11:19 12/23/17 11:19 12/23/17 12/23/17 12/23/17 11:19 11:19 18:55 Creatine Kinase 23 L 27 L CK-MB (CK-2) < 0.22 Troponin I < 0.012 12/23/17 12/24/17 12/24/17 18:55 02:20 02:20 Creatine Kinase 27 L CK-MB (CK-2) < 0.22 < 0.22 Troponin I < 0.012 < 0.012 Impressions: Head CT 12/23/17 10:14 IMPRESSION: NORMAL BRAIN CT WITHOUT CONTRAST. EVIDENCE OF ACUTE STROKE: NO. Chest X-Ray 12/23/17 10:22 IMPRESSION: NO ACUTE RADIOGRAPHIC FINDING IN THE CHEST. Assessment & Plan - Diagnosis (1) Hypertensive emergency Is this a current diagnosis for this admission?: Yes Plan: She is admitted to the hospital, started on intravenous nitroglycerin infusion for the control of severely elevated blood pressure (2) Urinary tract infection Qualifiers: Urinary tract infection type: site unspecified Hematuria presence: without hematuria Qualified Code(s): N39.0 - Urinary tract infection, site not specified Is this a current diagnosis for this admission?: Yes Plan: She has UTI, she is started empirically on IV antibiotic (3) Coronary artery disease Qualifiers: Coronary Disease-Associated Artery/Lesion type: unspecified vessel or lesion type [place] vs. transplanted heart: [place] heart Associated angina: without angina Qualified Code(s): I25.10 - Atherosclerotic heart disease of [place] coronary artery without angina pectoris Is this a current diagnosis for this admission?: Yes (4) Gastroparesis Is this a current diagnosis for this admission?: Yes
[2017-12-24] MEDS ORDERED: METOCLOPRAMIDE HCL INJ/PF 10 MG/2 ML SDV IV ONE (16:30)
--- NOTE | 2017-12-24 19:30 | PDOC PROGRESS REPORT ---
Subjective Progress Note for:: 12/24/17 Subjective:: Patient was seen by the bedside, she was admitted yesterday for the management of persistent vomiting, hypertensive emergency. She has history of gastroparesis. She complains of neck pain Reason For Visit: HYPERTENSIVE EMERGENCY,SYNCOPE Physical Exam Vital Signs: Temp Pulse Resp BP Pulse Ox 97.6 F 60 17 111/55 L 98 12/24/17 15:26 12/24/17 15:26 12/24/17 15:26 12/24/17 15:26 12/24/17 15:26 Intake & Output 12/23/17 12/24/17 12/25/17 06:59 06:59 06:59 Intake Total 1720 1034 Output Total 1820 Balance 1720 -786 Weight 70 kg General appearance: PRESENT: no acute distress Eye exam: PRESENT: PERRLA Respiratory exam: PRESENT: clear to auscultation jeanine Cardiovascular exam: PRESENT: +S1, +S2 Neurological exam: PRESENT: alert Results Laboratory Results: 12/23/17 11:19 12/23/17 11:19 12/23/17 12/23/17 12/23/17 11:19 11:19 18:55 Creatine Kinase 23 L 27 L CK-MB (CK-2) < 0.22 Troponin I < 0.012 12/23/17 12/24/17 12/24/17 18:55 02:20 02:20 Creatine Kinase 27 L CK-MB (CK-2) < 0.22 < 0.22 Troponin I < 0.012 < 0.012 Impressions: Head CT 12/23/17 10:14 IMPRESSION: NORMAL BRAIN CT WITHOUT CONTRAST. EVIDENCE OF ACUTE STROKE: NO. Chest X-Ray 12/23/17 10:22 IMPRESSION: NO ACUTE RADIOGRAPHIC FINDING IN THE CHEST. Assessment & Plan - Diagnosis (1) Hypertensive emergency Is this a current diagnosis for this admission?: Yes (2) Urinary tract infection Qualifiers: Urinary tract infection type: site unspecified Hematuria presence: without hematuria Qualified Code(s): N39.0 - Urinary tract infection, site not specified Is this a current diagnosis for this admission?: Yes (3) Coronary artery disease Qualifiers: Coronary Disease-Associated Artery/Lesion type: unspecified vessel or lesion type [place] vs. transplanted heart: [place] heart Associated angina: without angina Qualified Code(s): I25.10 - Atherosclerotic heart disease of [place] coronary artery without angina pectoris Is this a current diagnosis for this admission?: Yes (4) Gastroparesis Is this a current diagnosis for this admission?: Yes
[2017-12-24] MEDS: METOCLOPRAMIDE HCL INJ/PF 10 MG/2 ML SDV IV SCH (22:56)
[2017-12-25] MEDS: HYDROMORPHONE HCL 2 MG TABLET PO SCH ×5 (00:20→23:26)
[2017-12-25] MEDS: METOCLOPRAMIDE HCL INJ/PF 10 MG/2 ML SDV IV SCH ×4 (03:12→22:20)
[2017-12-25] MEDS: ALPRAZOLAM 0.25 MG TABLET PO PRN ×2 (03:18→22:20)
[2017-12-25] MEDS: CIPROFLOXACIN 400 MG/D5W RTU 400 MG/200 ML RTUPB IV SCH ×2 (06:04→19:25)
[2017-12-25] MEDS: LEVOTHYROXINE SODIUM 0.075 MG TABLET PO SCH (06:04)
[2017-12-25] MEDS: GLIMEPIRIDE 4 MG TABLET PO SCH (07:52)
[2017-12-25] MEDS: INSULIN LISPRO 100 UNIT/ML 3 ML VIAL SUBCUT SCH ×3 (07:53→18:37)
[2017-12-25] MEDS: INSULIN DETEMIR 100 UNIT/ML 3 ML PEN SUBCUT SCH (07:59)
--- NOTE | 2017-12-25 08:25 | RADIOLOGY REPORT (SQ) ---
EXAM DESCRIPTION: CERV SP 3 VIEW OR LESS COMPLETED DATE/TIME: 12/25/2017 8:11 am REASON FOR STUDY: neck pain E10.8 TYPE 1 DIABETES MELLITUS WITH UNSPECIFIED COMPLICATION R55 SYNC OPE AND COLLAPSE I10 ESSENTIAL (PRIMARY) HYPERTENSION COMPARISON: None. NUMBER OF VIEWS: Five views. TECHNIQUE: AP, lateral, obliques and odontoid radiographic images acquired of the cervical spine. LIMITATIONS: None. FINDINGS: MINERALIZATION: Normal. ALIGNMENT: Anatomic. VERTEBRAE: Vertebral bodies of normal height. DISCS: Mild multilevel degenerative disc disease with uncinate joint hypertrophy. FORAMINA: Mild multilevel neural foraminal narrowing. LATERAL AND POSTERIOR ELEMENTS: Facets, lateral masses and spinous processes without significant find ings. HARDWARE: None in the spine. SOFT TISSUES: No masses or calcifications. Lung apices clear. OTHER: No other significant finding. IMPRESSION: MILD MULTILEVEL DEGENERATIVE CHANGE WITHOUT ACUTE OSSEOUS ABNORMALITY. TECHNICAL DOCUMENTATION: JOB ID: [id number] [email or web address]- All Rights Reserved Reading location - IP/workstation name: [email or web address]
[2017-12-25] MEDS: ATORVASTATIN CALCIUM 40 MG TABLET PO SCH (09:27)
[2017-12-25] MEDS: METOPROLOL SUCCINATE 50 MG TAB.SR.24H PO SCH (09:27)
[2017-12-25] MEDS: LOSARTAN POTASSIUM 50 MG TABLET PO SCH (09:27)
[2017-12-25] MEDS: BACLOFEN 20 MG TABLET PO SCH ×2 (09:28→19:25)
[2017-12-25] MEDS: ASPIRIN 81 MG TABLET, ENT COATED PO SCH (09:28)
[2017-12-25] MEDS: LACTULOSE SYRUP 20 GM/30 ML UDCUP PO SCH ×2 (09:28→18:37)
[2017-12-25] MEDS: HYDROCHLOROTHIAZIDE 25 MG TABLET PO SCH (09:28)
[2017-12-25] MEDS ORDERED: (PENDING PHARMACY ID) (Dulaglutide [Trulicity] 1.5 MG) SQ SCH (10:00)
--- NOTE | 2017-12-25 16:28 | PDOC PROGRESS REPORT ---
Subjective Progress Note for:: 01/01/18 Subjective:: She was seen by the bedside, still vomiting Reason For Visit: HYPERTENSIVE EMERGENCY,SYNCOPE Physical Exam Vital Signs: Temp Pulse Resp BP Pulse Ox 97.9 F 57 L 18 117/52 L 96 12/25/17 15:59 12/25/17 15:59 12/25/17 15:59 12/25/17 15:59 12/25/17 15:59 Intake & Output 12/24/17 12/25/17 12/26/17 06:59 06:59 06:59 Intake Total 1720 2453 0 Output Total 2820 Balance 1720 -367 0 Weight 70 kg 72.2 kg General appearance: PRESENT: no acute distress Eye exam: PRESENT: PERRLA Respiratory exam: PRESENT: clear to auscultation jeannie Cardiovascular exam: PRESENT: +S1, +S2 GI/Abdominal exam: PRESENT: soft Neurological exam: PRESENT: alert Results Laboratory Results: 12/23/17 11:19 12/23/17 11:19 12/23/17 11:45 Clean Catch Midstream Urine Culture - Final Escherichia Coli 12/23/17 12/23/17 12/23/17 11:19 11:19 18:55 Creatine Kinase 23 L 27 L CK-MB (CK-2) < 0.22 Troponin I < 0.012 12/23/17 12/24/17 12/24/17 18:55 02:20 02:20 Creatine Kinase 27 L CK-MB (CK-2) < 0.22 < 0.22 Troponin I < 0.012 < 0.012 Impressions: Head CT 12/23/17 10:14 IMPRESSION: NORMAL BRAIN CT WITHOUT CONTRAST. EVIDENCE OF ACUTE STROKE: NO. Chest X-Ray 12/23/17 10:22 IMPRESSION: NO ACUTE RADIOGRAPHIC FINDING IN THE CHEST. Cervical Spine X-Ray 12/25/17 00:00 IMPRESSION: MILD MULTILEVEL DEGENERATIVE CHANGE WITHOUT ACUTE OSSEOUS ABNORMALITY. Assessment & Plan - Diagnosis (1) Hypertensive emergency Is this a current diagnosis for this admission?: Yes (2) Urinary tract infection Qualifiers: Urinary tract infection type: site unspecified Hematuria presence: without hematuria Qualified Code(s): N39.0 - Urinary tract infection, site not specified Is this a current diagnosis for this admission?: Yes (3) Coronary artery disease Qualifiers: Coronary Disease-Associated Artery/Lesion type: unspecified vessel or lesion type [place] vs. transplanted heart: cheesh-na heart Associated angina: without angina Qualified Code(s): I25.10 - Atherosclerotic heart disease of cheesh-na coronary artery without angina pectoris Is this a current diagnosis for this admission?: Yes (4) Gastroparesis Is this a current diagnosis for this admission?: Yes
[2017-12-25 16:55] LABS: ABSOLUTE BASOPHILS # (AUTO) 0.1 10^3/uL (0.0-0.2); ABSOLUTE EOSINOPHILS # (AUTO) 0.2 10^3/uL (0.0-0.6); ABSOLUTE LYMPHOCYTES (AUTO) 1.7 10^3/uL (0.5-4.7); ABSOLUTE MONOCYTES (AUTO) 0.6 10^3/uL (0.1-1.4); ABSOLUTE NEUT (AUTO) 4.6 10^3/uL (1.7-8.2); BASOPHILS % (AUTO) 0.9 % (0-2); EOSINOPHILS % (AUTO) 2.9 % (0-6); HEMOGLOBIN 14.2 g/dL (12.0-15.5); LYMPHOCYTES % (AUTO) 24.3 % (13-45); MEAN CORPUSCULAR HEMOGLOBIN 31.6 pg (27.0-33.4); MEAN CORPUSCULAR HGB CONC 34.6 g/dL (32.0-36.0); MEAN CORPUSCULAR VOLUME 91 fl (80-97); MONOCYTES % (AUTO) 8.2 % (3-13); PLATELET COUNT 234 10^3/uL (150-450); RED CELL DISTRIBUTION WIDTH 13.2 % (11.5-14.0); SEGMENTED NEUTROPHILS % (AUTO) 63.7 % (42-78); TOTAL CELLS COUNTED % (AUTO) 100 %; WHITE BLOOD COUNT 7.2 10^3/uL (4.0-10.5)
[2017-12-25 17:12] LABS: ALANINE AMINOTRANSFERASE 219 U/L (9-52); ALBUMIN 4.2 g/dL (3.5-5.0); ALKALINE PHOSPHATASE 158 U/L (38-126); ANION GAP 12 (5-19); ASPARTATE AMINO TRANSFERASE 334 U/L (14-36); BILIRUBIN,DIRECT 0.7 mg/dL (0.0-0.4); BILIRUBIN,TOTAL 1.5 mg/dL (0.2-1.3); BLOOD UREA NITROGEN 25 mg/dL (7-20); CALCIUM 9.4 mg/dL (8.4-10.2); CARBON DIOXIDE 29 mmol/L (22-30); CHLORIDE 101 mmol/L (98-107); GLUCOSE 87 mg/dL (75-110); SODIUM 142.1 mmol/L (137-145); TOTAL PROTEIN 7.4 g/dL (6.3-8.2)
[2017-12-25] MEDS: ONDANSETRON HCL 8 MG TABLET PO PRN (20:30)
[2017-12-25] MEDS: ZOLPIDEM TARTRATE 5 MG TABLET PO PRN (22:20)
[2017-12-25] MEDS: INSULIN LISPRO 100 UNIT/ML 3 ML VIAL SUBCUT PRN (22:33)
[2017-12-26] MEDS: METOCLOPRAMIDE HCL INJ/PF 10 MG/2 ML SDV IV SCH ×3 (04:05→14:11)
[2017-12-26] MEDS: LEVOTHYROXINE SODIUM 0.075 MG TABLET PO SCH (05:40)
[2017-12-26] MEDS: CIPROFLOXACIN 400 MG/D5W RTU 400 MG/200 ML RTUPB IV SCH ×2 (05:40→17:24)
[2017-12-26] MEDS: HYDROMORPHONE HCL 2 MG TABLET PO SCH ×3 (05:40→17:13)
--- NOTE | 2017-12-26 08:13 | Physician Advisory Note ---
Physician Advisor ProgressNote .: Pursuant to the plan for [facility], I have reviewed the medical record for this patient. Physician Advisor Statement: Please consider documenting, if you agree: 1. "Acute hypernatremia, suspect due to " [intravascular volume depletion?] 2. "Acute Kidney Injury/ARF, suspect due to " 3. Suspected reason for acutely elevating LFTs 4. Medical necessity: "Patient developed N/V/abd pain 12/24 AM, which remained persistent 12/25 despite q6h scheduled IV Reglan + prn po Zofran. Now, she has developed GELY, likely from " [worsened intravascular volume depletion? ] - We need to document each day the reason(s) the patient is not yet clinically ready/safe for d/c home, & plan for tx. Status: Appropriately came in as outpt Obs for suspected HTN-garrett emergency. BP improved w/tx, & NTG gtt was held as of very early 12/24 AM. However, on 12/24 , pt developed N/V/abd pain per nursing notes that remained persistent through PM at least despite aggressive tx, & has now developed acutely worsening renal function & transaminitis. Appropriate for change to Inpatient status. Thanks! CK
[2017-12-26] MEDS: GLIMEPIRIDE 4 MG TABLET PO SCH (08:20)
[2017-12-26] MEDS: INSULIN DETEMIR 100 UNIT/ML 3 ML PEN SUBCUT SCH (08:21)
[2017-12-26] MEDS: INSULIN LISPRO 100 UNIT/ML 3 ML VIAL SUBCUT SCH ×3 (08:34→17:15)
[2017-12-26] MEDS: BACLOFEN 20 MG TABLET PO SCH ×2 (10:42→17:14)
[2017-12-26] MEDS: ASPIRIN 81 MG TABLET, ENT COATED PO SCH (10:42)
[2017-12-26] MEDS: ATORVASTATIN CALCIUM 40 MG TABLET PO SCH (10:42)
[2017-12-26] MEDS: LACTULOSE SYRUP 20 GM/30 ML UDCUP PO SCH ×2 (10:43→17:24)
[2017-12-26] MEDS: HYDROCHLOROTHIAZIDE 25 MG TABLET PO SCH (11:41)
[2017-12-26] MEDS: LOSARTAN POTASSIUM 50 MG TABLET PO SCH (11:41)
[2017-12-26] MEDS: METOPROLOL SUCCINATE 50 MG TAB.SR.24H PO SCH (11:41)
[2017-12-26] MEDS: METOCLOPRAMIDE HCL 10 MG TABLET PO SCH ×2 (15:09→22:09)
--- NOTE | 2017-12-26 21:24 | PDOC PROGRESS REPORT ---
Subjective Progress Note for:: 12/26/17 Subjective:: She was seen by the bedside, she continues to improve with IV Reglan Reason For Visit: HYPERTENSIVE EMERGENCY,UTI Physical Exam Vital Signs: Temp Pulse Resp BP Pulse Ox 98.1 F 79 16 110/50 L 97 12/26/17 14:52 12/26/17 14:52 12/26/17 14:52 12/26/17 14:52 12/26/17 14:52 Intake & Output 12/25/17 12/26/17 12/27/17 06:59 06:59 06:59 Intake Total 2453 1610 500 Output Total 2820 1100 Balance -367 510 500 Weight 72.2 kg General appearance: PRESENT: no acute distress, well-developed, well-nourished Head exam: PRESENT: atraumatic, normocephalic Eye exam: PRESENT: conjunctiva pink, EOMI, PERRLA Ear exam: PRESENT: normal external ear exam Mouth exam: PRESENT: moist, tongue midline Neck exam: PRESENT: full ROM Respiratory exam: PRESENT: clear to auscultation jeannie Cardiovascular exam: PRESENT: RRR, +S1, +S2 Vascular exam: PRESENT: normal capillary refill GI/Abdominal exam: PRESENT: normal bowel sounds, soft Rectal exam: PRESENT: deferred Neurological exam: PRESENT: alert, awake, oriented to person, oriented to place , oriented to time, oriented to situation, CN II-XII grossly intact Psychiatric exam: PRESENT: appropriate affect, normal mood Skin exam: PRESENT: dry, intact, warm Results Laboratory Results: 12/25/17 16:47 12/25/17 16:47 12/23/17 12/23/17 12/23/17 11:19 11:19 18:55 Creatine Kinase 23 L 27 L CK-MB (CK-2) < 0.22 Troponin I < 0.012 12/23/17 12/24/17 12/24/17 18:55 02:20 02:20 Creatine Kinase 27 L CK-MB (CK-2) < 0.22 < 0.22 Troponin I < 0.012 < 0.012 Impressions: Head CT 12/23/17 10:14 IMPRESSION: NORMAL BRAIN CT WITHOUT CONTRAST. EVIDENCE OF ACUTE STROKE: NO. Chest X-Ray 12/23/17 10:22 IMPRESSION: NO ACUTE RADIOGRAPHIC FINDING IN THE CHEST. Cervical Spine X-Ray 12/25/17 00:00 IMPRESSION: MILD MULTILEVEL DEGENERATIVE CHANGE WITHOUT ACUTE OSSEOUS ABNORMALITY. Assessment & Plan - Diagnosis (1) Hypertensive emergency Is this a current diagnosis for this admission?: Yes (2) Urinary tract infection Qualifiers: Urinary tract infection type: site unspecified Hematuria presence: without hematuria Qualified Code(s): N39.0 - Urinary tract infection, site not specified Is this a current diagnosis for this admission?: Yes (3) Coronary artery disease Qualifiers: Coronary Disease-Associated Artery/Lesion type: unspecified vessel or lesion type [place] vs. transplanted heart: [place] heart Associated angina: without angina Qualified Code(s): I25.10 - Atherosclerotic heart disease of [place] coronary artery without angina pectoris Is this a current diagnosis for this admission?: Yes (4) Gastroparesis Is this a current diagnosis for this admission?: Yes
[2017-12-26] MEDS: INSULIN LISPRO 100 UNIT/ML 3 ML VIAL SUBCUT PRN (22:11)
[2017-12-26] MEDS: CIPROFLOXACIN HCL 500 MG TABLET PO SCH (22:11)
[2017-12-26] MEDS: ALPRAZOLAM 0.25 MG TABLET PO PRN (22:46)
[2017-12-27] MEDS: HYDROMORPHONE HCL 2 MG TABLET PO SCH ×4 (01:04→17:05)
[2017-12-27] MEDS: LEVOTHYROXINE SODIUM 0.075 MG TABLET PO SCH (06:15)
[2017-12-27] MEDS: METOCLOPRAMIDE HCL 10 MG TABLET PO SCH ×3 (06:15→14:31)
[2017-12-27] MEDS: INSULIN DETEMIR 100 UNIT/ML 3 ML PEN SUBCUT SCH (08:29)
[2017-12-27] MEDS: INSULIN LISPRO 100 UNIT/ML 3 ML VIAL SUBCUT SCH ×3 (08:29→17:05)
[2017-12-27] MEDS: GLIMEPIRIDE 4 MG TABLET PO SCH (08:29)
[2017-12-27] MEDS: ONDANSETRON HCL 8 MG TABLET PO PRN (08:29)
[2017-12-27] MEDS: CIPROFLOXACIN HCL 500 MG TABLET PO SCH (09:59)
[2017-12-27] MEDS: ASPIRIN 81 MG TABLET, ENT COATED PO SCH (09:59)
[2017-12-27] MEDS: ATORVASTATIN CALCIUM 40 MG TABLET PO SCH (09:59)
[2017-12-27] MEDS: LOSARTAN POTASSIUM 50 MG TABLET PO SCH (09:59)
[2017-12-27] MEDS: HYDROCHLOROTHIAZIDE 25 MG TABLET PO SCH (09:59)
[2017-12-27] MEDS: BACLOFEN 20 MG TABLET PO SCH ×2 (10:00→17:05)
[2017-12-27] MEDS: METOPROLOL SUCCINATE 50 MG TAB.SR.24H PO SCH (10:00)
[2017-12-27] MEDS: LACTULOSE SYRUP 20 GM/30 ML UDCUP PO SCH ×2 (10:01→17:06)
[2017-12-27] MEDS: INSULIN LISPRO 100 UNIT/ML 3 ML VIAL SUBCUT PRN ×2 (12:00→17:05)
[2017-12-27 18:09] VITALS: BP 171/65
--- NOTE | 2017-12-27 22:38 | PDOC DISCHARGE SUMMARY ---
General - Admit/Disc Date/PCP Admission Date/Primary Care Provider: 12/26/17 14:34 TUCKER WESTFALL MD Discharge Date: 12/27/17 - Discharge Diagnosis (1) Hypertensive emergency Is this a current diagnosis for this admission?: Yes (2) Urinary tract infection Is this a current diagnosis for this admission?: Yes (3) Coronary artery disease Is this a current diagnosis for this admission?: Yes (4) Gastroparesis Is this a current diagnosis for this admission?: Yes - Additional Information Discharge Diet: Cardiac, Diabetic Discharge Activity: Activity As Tolerated Prescriptions: Ciprofloxacin HCl [Cipro 500 mg Tablet] 500 mg PO Q12 #10 tablet Metoclopramide HCl [Reglan 10 mg Tablet] 10 mg PO Q6A #120 tablet Ondansetron HCl [Zofran 8 mg Tablet] 8 mg PO QIDP PRN #60 tablet PRN Reason: For Nausea/Vomiting Home Medications: Albuterol Sulfate [Albuterol Sulfate 2.5mg/3 mL] 1 vial IH RTQ4HP PRN 12/23/17 Aspirin [Aspirin EC] 81 mg PO DAILY 12/23/17 Atorvastatin Calcium [Lipitor 40 mg Tablet] 40 mg PO DAILY 12/23/17 Dulaglutide [Trulicity] 1.5 mg SQ COX@1000 12/23/17 Furosemide [Lasix 40 mg Tablet] 40 mg PO DAILYP PRN 12/23/17 Gabapentin Enacarbil [Horizant] 1,200 mg PO Q12HP PRN 12/23/17 Glimepiride [Amaryl 4 mg Tablet] 4 mg PO QAM 12/23/17 Hydromorphone HCl [Hydromorphone ER] 8 mg PO Q12 12/23/17 Insulin Detemir [Levemir Flextouch] 52 unit SQ QAM 12/23/17 Insulin Detemir [Levemir Flextouch] 52 unit SQ QPMP PRN 12/23/17 Insulin Lispro [Humalog Kwikpen U-100] 5 unit SQ MEALS 12/23/17 Lactulose [Cephulac Syrup 20 gm/30 ml Udcup] 20 gm PO BID 12/23/17 Levothyroxine Sodium [Synthroid 0.075 mg Tablet] 0.075 mg PO Q6AM 12/23/17 Linaclotide [Linzess] 72 mcg PO DAILY 12/23/17 Losartan/Hydrochlorothiazide [Losartan-Hctz 100-25 mg Tab] 1 each PO DAILY 12/23 Nitroglycerin [Nitrostat 0.4 mg (1/150 Gr) Tabs 25/Bottle] 1 tab SL Q5MP PRN Ciprofloxacin HCl [Cipro 500 mg Tablet] 500 mg PO Q12 #10 tablet 12/27/17 Metoclopramide HCl [Reglan 10 mg Tablet] 10 mg PO Q6A #120 tablet 12/27/17 Ondansetron HCl [Zofran 8 mg Tablet] 8 mg PO QIDP PRN #60 tablet 12/27/17 History of Present Illness History of Present Illness: JORGE ROBERT is a 57 year old female, she has a history of coronary artery disease, gastroparesis, chronic pain syndrome from lumbar radiculopathy, she came to the office as same day urgent visit for evaluation of persistent vomiting, where she was in triage at the nurses station in the office she felt dizzy, the blood pressure recorded was severely elevated it was in the emergency hypertensive range 220 systolic. She did not actually lose consciousness but she feels like she is going to faint. She was admitted directly from the office to the hospital for management she is started on intravenous nitroglycerin infusion she has a history of gastroparesis with episode of vomiting and nausea. She recently moved out of [facility] to [facility] she actually lives in [place], she drove all the way from [place] to see us in [facility]. She was admitted previously in this hospital for symptomatic gastroparesis with nausea and vomiting she also has chronic urinary incontinence, she does self-catheterization for urination, the urinalysis that was done showed bacteriuria, pyuria does suggest urinary tract infection. Hospital Course Hospital Course: She was admitted for the management of hypertensive emergency, persistent vomiting due to gastroparesis, and urinary tract infection. The urine culture grew E. coli sensitive to all antibiotic, she was treated with IV ciprofloxacin , the blood pressure was treated with nitroglycerin infusion, and the gastroparesis was treated with intravenous Reglan. She was admitted for observation could not be discharged on 2 today because of the gastroparesis with associated vomiting. Patient did respond to Reglan Physical Exam Vital Signs: Temp Pulse Resp BP Pulse Ox 97.7 F 72 16 171/65 H 98 12/27/17 17:47 12/27/17 17:47 12/27/17 17:47 12/27/17 17:47 12/27/17 17:47 Intake & Output 12/26/17 12/27/17 12/28/17 06:59 06:59 06:59 Intake Total 1610 900 Output Total 1100 200 Balance 510 700 Weight 77.2 kg General appearance: PRESENT: no acute distress, well-developed, well-nourished Head exam: PRESENT: atraumatic, normocephalic Eye exam: PRESENT: conjunctiva pink, EOMI, PERRLA Ear exam: PRESENT: normal external ear exam Mouth exam: PRESENT: moist, tongue midline Neck exam: PRESENT: full ROM Respiratory exam: PRESENT: clear to auscultation jeannie Cardiovascular exam: PRESENT: RRR, +S1, +S2 Vascular exam: PRESENT: normal capillary refill GI/Abdominal exam: PRESENT: normal bowel sounds, soft Rectal exam: PRESENT: deferred Neurological exam: PRESENT: alert, CN II-XII grossly intact Psychiatric exam: PRESENT: appropriate affect, normal mood Skin exam: PRESENT: dry, intact, warm Results Laboratory Results: 12/25/17 16:47 12/25/17 16:47 12/23/17 12/23/17 12/23/17 11:19 11:19 18:55 Creatine Kinase 23 L 27 L CK-MB (CK-2) < 0.22 Troponin I < 0.012 12/23/17 12/24/17 12/24/17 18:55 02:20 02:20 Creatine Kinase 27 L CK-MB (CK-2) < 0.22 < 0.22 Troponin I < 0.012 < 0.012 Impressions: Head CT 12/23/17 10:14 IMPRESSION: NORMAL BRAIN CT WITHOUT CONTRAST. EVIDENCE OF ACUTE STROKE: NO. Chest X-Ray 12/23/17 10:22 IMPRESSION: NO ACUTE RADIOGRAPHIC FINDING IN THE CHEST. Cervical Spine X-Ray 12/25/17 00:00 IMPRESSION: MILD MULTILEVEL DEGENERATIVE CHANGE WITHOUT ACUTE OSSEOUS ABNORMALITY. Qualifiers - * PATEINT BEING DISCHARGED WITH ANY OF THE FOLLOWING DIAGNOSIS?: No
== END 2017-12-27 18:34 | disposition home or self-care (01) | DRG 305 ==
LOC: 3S 09:41 → OBSVTOIN 12-26 14:34
PROVIDERS: ADMIT Internal Medicine; ATTEND Internal Medicine
DX: I16.1 Hypertensive emergency (principal); N39.0 Urinary tract infection, site not specified; R55 Syncope and collapse; I10 Essential (primary) hypertension; I25.10 Atherosclerotic heart disease of native coronary artery without angina pectoris; G89.4 Chronic pain syndrome; K31.84 Gastroparesis; J44.9 Chronic obstructive pulmonary disease, unspecified; E11.9 Type 2 diabetes mellitus without complications; F43.10 Post-traumatic stress disorder, unspecified; F31.9 Bipolar disorder, unspecified; F17.210 Nicotine dependence, cigarettes, uncomplicated; B96.20 Unspecified Escherichia coli [E. coli] as the cause of diseases classified elsewhere; Z79.84 Long term (current) use of oral hypoglycemic drugs; Z79.82 Long term (current) use of aspirin; Z79.4 Long term (current) use of insulin; Z79.51 Long term (current) use of inhaled steroids; Z79.899 Other long term (current) drug therapy
CPT/HCPCS: 36415; 70450; 71045; 72040; 80048; 80053; 80076; 81001; 82550; 82553; 82962; 83036; 84439; 84443; 84484; 85025; 87040; 87086; 87088; 87186; 93005; 93010; G0378; J0744; J1815; J2765; J3490; S0119

== ENCOUNTER 2019-07-12 17:14 | Observation (INO) | payer MEDICARE, MEDICAID ==
--- NOTE | 2019-07-12 17:28 | ER Document Report ---
ED Medical Screen (RME) - General Chief Complaint: Nausea/Vomiting Stated Complaint: VOMITING/DIRECT ADMIT Time Seen by Provider: 07/12/19 17:26 Primary Care Provider: TUCKER WESTFALL MD [Primary Care Provider] - Follow up as needed Mode of Arrival: Wheelchair Information source: Patient Notes: 58-year-old female presents to ED for complaint of vomiting and difficulty swallowing. She is alert oriented does not answer questions verbally. According to the order sheet she was supposed to be a direct admit but the [facility] did not get a room for her before sending her to the hospital. He does have some orders on here for admission. I have greeted and performed a rapid initial assessment of this patient. A comprehensive ED assessment and evaluation of the patient, analysis of test results and completion of medical decision making process will be conducted by an additional ED providers. TRAVEL OUTSIDE OF THE [place] IN LAST 30 DAYS: No - Related Data Allergies/Adverse Reactions: Sulfa (Sulfonamide Antibiotics) Adverse Reaction (Unknown, Verified 07/12/19 17:24) Past Medical History - Past Medical History Cardiac Medical History: Reports: Hx Coronary Artery Disease, Hx Heart Attack - x4, Hx Hypertension Pulmonary Medical History: Reports: Hx COPD Denies: Hx Tuberculosis Neurological Medical History: Reports: Hx Cerebrovascular Accident. Denies: Hx Seizures Endocrine Medical History: Reports: Hx Diabetes Mellitus Type 1, Hx Diabetes Mellitus Type 2 Renal/ Medical History: Denies: Hx Peritoneal Dialysis GI Medical History: Reports: Hx Hepatitis - Hepatitis C Musculoskeltal Medical History: Reports Hx Arthritis Psychiatric Medical History: Reports: Hx Bipolar Disorder, Hx Depression, Hx Post Traumatic Stress Disorder Infectious Medical History: Reports: Hx Hepatitis - Hepatitis C Past Surgical History: Reports: Hx Abdominal Surgery - abdominal tumor, bladder sling, Hx Appendectomy, Hx Cardiac Catheterization, Hx Cholecystectomy, Hx Coronary Stent - 1 drug eluding stent in the LAD, Hx Gynecologic Surgery, Hx Hysterectomy - Immunizations Immunizations up to date: Yes Hx Diphtheria, Pertussis, Tetanus Vaccination: Yes Physical Exam - Vital signs Vitals: Temp Pulse Resp BP Pulse Ox 97.7 F 104 H 22 H 120/64 98 07/12/19 17:19 07/12/19 17:19 07/12/19 17:19 07/12/19 17:19 07/12/19 17:19 Course - Vital Signs Vital signs: Temp Pulse Resp BP Pulse Ox 97.7 F 104 H 22 H 120/64 98 07/12/19 17:19 07/12/19 17:19 07/12/19 17:19 07/12/19 17:19 07/12/19 17:19 Doctor's Discharge - Discharge Referrals: TUCKER WESTFALL MD [Primary Care Provider] - Follow up as needed
--- NOTE | 2019-07-12 18:10 | RADIOLOGY REPORT (SQ) ---
EXAM DESCRIPTION: CHEST 2 VIEWS COMPLETED DATE/TIME: 07/12/2019 5:55 pm REASON FOR STUDY: difficulty swallowing COMPARISON: 06/13/2019 TECHNIQUE: Frontal and lateral radiographic views of the chest acquired. NUMBER OF VIEWS: Two view. LIMITATIONS: None. FINDINGS: LUNGS AND PLEURA: No pneumothorax. No consolidation or pleural effusion. MEDIASTINUM AND HILAR STRUCTURES: Stable. HEART AND VASCULAR STRUCTURES: Stable. BONES: No acute findings. HARDWARE: None in the chest. OTHER: No other significant finding. IMPRESSION: NO ACUTE FINDINGS. TECHNICAL DOCUMENTATION: JOB ID: [id number] [place]-[id number] 2010 [employer]- All Rights Reserved Reading location - IP/workstation name: [email or web address]
[2019-07-12 19:16] LABS: ABSOLUTE BASOPHILS # (AUTO) 0.1 10^3/uL (0.0-0.2); ABSOLUTE LYMPHOCYTES (AUTO) 2.2 10^3/uL (0.5-4.7); ABSOLUTE MONOCYTES (AUTO) 1.9 10^3/uL (0.1-1.4); ABSOLUTE NEUT (AUTO) 14.3 10^3/uL (1.7-8.2); BASOPHILS % (AUTO) 0.7 % (0-2); HEMATOCRIT 47.8 % (36.0-47.0); HEMOGLOBIN 16.5 g/dL (12.0-15.5); LYMPHOCYTES % (AUTO) 11.9 % (13-45); MEAN CORPUSCULAR HEMOGLOBIN 31.4 pg (27.0-33.4); MEAN CORPUSCULAR HGB CONC 34.6 g/dL (32.0-36.0); MEAN CORPUSCULAR VOLUME 91 fl (80-97); MONOCYTES % (AUTO) 10.5 % (3-13); PLATELET COUNT 301 10^3/uL (150-450); RED BLOOD COUNT 5.26 10^6/uL (3.72-5.28); SEGMENTED NEUTROPHILS % (AUTO) 76.9 % (42-78); TOTAL CELLS COUNTED % (AUTO) 100 %; WHITE BLOOD COUNT 18.6 10^3/uL (4.0-10.5)
[2019-07-12 19:44] LABS: ALBUMIN 4.7 g/dL (3.5-5.0); ALKALINE PHOSPHATASE 103 U/L (38-126); ANION GAP 19 (5-19); ASPARTATE AMINO TRANSFERASE 22 U/L (14-36); BILIRUBIN,DIRECT 0.3 mg/dL (0.0-0.4); BLOOD UREA NITROGEN 67 mg/dL (7-20); CALCIUM 10.7 mg/dL (8.4-10.2); CARBON DIOXIDE 17 mmol/L (22-30); CHLORIDE 109 mmol/L (98-107); CREATINE KINASE 53 U/L (30-135); GLUCOSE 171 mg/dL (75-110); POTASSIUM 3.7 mmol/L (3.6-5.0); TOTAL PROTEIN 8.8 g/dL (6.3-8.2)
[2019-07-12 19:55] LABS: CREATINE KINASE MB 0.73 ng/mL (<4.55); TROPONIN I 0.033 ng/mL
--- NOTE | 2019-07-12 21:32 | PDOC H&P ---
History of Present Illness Admission Date/PCP: 07/12/19 20:09 TUCKER WESTFALL MD History of Present Illness: JORGE ROBERT is a 58 [facility] [place], she came to the office with her spouse for evaluation of dysphagia, altered mental status, severe hoarseness of voice, generalized malaise. She was evaluated in the office, she looks acutely ill, could not obtain any history from this patient, she says she cannot swallow. She has multiple comorbid conditions including poorly controlled diabetes mellitus chronic opioid dependence she has chronic pain follow with pain management. The spouse stated that she was admitted at [facility] for some undisclosed ailment, I could not get the record from this facility, she also was recently admitted at [facility] I did not have access to any of the records but I felt the best plan of care for this patient at this time in my office is to be admitted directly into the hospital for further evaluation. Initial blood work demonstrated severe leukocytosis WBC was 18,000 with a left shift there was associated azotemia, serum creatinine 1.7, chest x-ray was negative urinalysis is pending and also urine culture is pending. A stat barium swallow x-ray did not show any mass lesion, no stricture, no lumen narrowing or any intramucosal lesion that would cause dysphagia. Past Medical History Cardiac Medical History: Reports: Coronary Artery Disease, Myocardial Infarction - x4, Hypertension Pulmonary Medical History: Reports: Chronic Obstructive Pulmonary Disease (COPD) Denies: Tuberculosis Endocrine Medical History: Reports: Diabetes Mellitus Type 2 GI Medical History: Reports: Hepatitis - Hepatitis C Musculoskeltal Medical History: Reports: Arthritis Psychiatric Medical History: Reports: Bipolar Disorder, Depression, Post Traumatic Stress Disorder Past Surgical History Past Surgical History: Reports: Appendectomy, Cardiac Catheterization, Cholecystectomy, Coronary Stent - 1 drug eluding stent in the LAD, Hysterectomy Social History Smoking Status: Never Smoker Electronic Cigarette use?: No Frequency of Alcohol Use: None Hx Recreational Drug Use: No Drugs: None Hx Prescription Drug Abuse: No Family History Family History: Reviewed & Not Pertinent Parental Family History Reviewed: Yes Children Family History Reviewed: Yes Sibling(s) Family History Reviewed.: Yes Medication/Allergy Home Medications: Aspirin [Aspirin EC] 81 mg PO DAILY 12/23/17 Levothyroxine Sodium [Synthroid 0.075 mg Tablet] 0.075 mg PO Q6AM 12/23/17 Baclofen [Baclofen 10 mg Tablet] 10 mg PO BID MDD 20 MG 06/13/19 Empagliflozin [Jardiance] 10 mg PO DAILY 06/13/19 Estradiol [Estrace] 1 applic PV ASDIR PRN 06/13/19 Gabapentin 600 mg PO Q8 06/13/19 Insulin Aspart [Novolog Insulin (Aspart) 100 unit/mL] 5 units SUBCUT TID 06/13/19 Losartan/Hydrochlorothiazide [Hyzaar 100-12.5 Tablet] 1 each PO DAILY 06/13/19 Metoclopramide HCl [Reglan 10 mg Tablet] 10 mg PO TIDP PRN 06/13/19 Metoprolol Succinate [Toprol XL 100 mg Tablet] 100 mg PO DAILY 06/13/19 Mirabegron [Myrbetriq] 25 mg PO DAILY 06/13/19 Morphine Sulfate [Morphine Sulfate ER] 30 mg PO Q12 06/13/19 Oxycodone HCl/Acetaminophen [Endocet 5-325 Tablet] 1 each PO Q6HP PRN 06/13/19 Glimepiride 2 mg PO DAILY 07/13/19 Metformin HCl [Metformin HCl ER] 500 mg PO QAM 07/13/19 Ondansetron HCl [Zofran 8 mg Tablet] 8 mg PO Q8HP PRN 07/13/19 Allergies/Adverse Reactions: Sulfa (Sulfonamide Antibiotics) Adverse Reaction (Unknown, Verified 07/12/19 17:24) Review of Systems Constitutional: PRESENT: anorexia, fatigue Eyes: ABSENT: visual disturbances Ears: ABSENT: hearing changes Cardiovascular: ABSENT: chest pain, dyspnea on exertion, edema, orthropnea, palpitations Respiratory: PRESENT: cough Gastrointestinal: PRESENT: dysphagia, nausea Genitourinary: ABSENT: dysuria, hematuria Musculoskeletal: ABSENT: joint swelling Integumentary: ABSENT: rash, wounds Neurological: ABSENT: abnormal gait, abnormal speech, confusion, dizziness, focal weakness, syncope Psychiatric: ABSENT: anxiety, depression, homidical ideation, suicidal ideation Endocrine: ABSENT: cold intolerance, heat intolerance, menstrual abnormalities, polydipsia, polyuria Hematologic/Lymphatic: ABSENT: easy bleeding, easy bruising, lymphadenopathy Physical Exam Vital Signs: Temp Pulse Resp BP Pulse Ox 97.7 F 68 16 156/75 H 100 07/12/19 20:45 07/12/19 20:45 07/12/19 20:45 07/12/19 20:45 07/12/19 20:45 Intake & Output 07/11/19 07/12/19 07/13/19 06:59 06:59 06:59 Weight 74.843 kg General appearance: PRESENT: other - Patient looks acutely ill Head exam: PRESENT: atraumatic, normocephalic Eye exam: PRESENT: PERRLA Ear exam: PRESENT: normal external ear exam Mouth exam: PRESENT: other - There is erythema of the pharynx Neck exam: PRESENT: full ROM Respiratory exam: PRESENT: clear to auscultation jeannie Cardiovascular exam: PRESENT: RRR, +S1, +S2 Pulses: PRESENT: normal dorsalis pedis pul, +2 pedal pulses bilateral Vascular exam: PRESENT: normal capillary refill GI/Abdominal exam: PRESENT: normal bowel sounds, soft Rectal exam: PRESENT: deferred Neurological exam: PRESENT: alert, CN II-XII grossly intact Skin exam: PRESENT: dry, intact, warm Results Laboratory Results: 07/12/19 18:53 07/12/19 18:53 07/12/19 07/12/19 18:53 18:53 WBC 18.6 H RBC 5.26 Hgb 16.5 H Hct 47.8 H MCV 91 MCH 31.4 MCHC 34.6 RDW 13.0 Plt Count 301 Seg Neutrophils % 76.9 Sodium 145.0 Potassium 3.7 Chloride 109 H Carbon Dioxide 17 L Anion Gap 19 BUN 67 H Creatinine 1.77 H Est GFR ( Amer) 35 L Glucose 171 H Calcium 10.7 H Total Bilirubin 1.0 AST 22 Alkaline Phosphatase 103 Total Protein 8.8 H Albumin 4.7 Lipase 85.3 07/12/19 07/12/19 18:53 18:53 Creatine Kinase 53 CK-MB (CK-2) 0.73 Troponin I 0.033 Impressions: Chest X-Ray 07/12/19 17:33 IMPRESSION: NO ACUTE FINDINGS. Assessment & Plan - Diagnosis (1) Leukemoid reaction Is this a current diagnosis for this admission?: Yes Plan: The differential diagnosis includes urinary tract infection, sepsis, pharyng itis, the exact etiology is not known, patient will be empirically treated with IV antibiotic urine culture has already ordered, nurses to collect urine by straight cathing patient
--- NOTE | 2019-07-12 21:36 | PDOC H&P ---
History of Present Illness Admission Date/PCP: 07/12/19 20:09 TUCKER WESTFALL MD Past Medical History Cardiac Medical History: Reports: Coronary Artery Disease, Myocardial Infarction - x4, Hypertension Pulmonary Medical History: Reports: Chronic Obstructive Pulmonary Disease (COPD) Denies: Tuberculosis Neurological Medical History: Denies: Seizures Endocrine Medical History: Reports: Diabetes Mellitus Type 1, Diabetes Mellitus Type 2 GI Medical History: Reports: Hepatitis - Hepatitis C Musculoskeltal Medical History: Reports: Arthritis Psychiatric Medical History: Reports: Bipolar Disorder, Depression, Post Tra umatic Stress Disorder Past Surgical History Past Surgical History: Reports: Appendectomy, Cardiac Catheterization, Cholecystectomy, Coronary Stent - 1 drug eluding stent in the LAD, Hysterectomy Social History Smoking Status: Never Smoker Electronic Cigarette use?: No Frequency of Alcohol Use: None Hx Recreational Drug Use: No Drugs: None Hx Prescription Drug Abuse: No Family History Family History: Reviewed & Not Pertinent Medication/Allergy Home Medications: Aspirin [Aspirin EC] 81 mg PO DAILY 12/23/17 Atorvastatin Calcium [Lipitor 40 mg Tablet] 40 mg PO QHS 12/23/17 Levothyroxine Sodium [Synthroid 0.075 mg Tablet] 0.075 mg PO Q6AM 12/23/17 Ondansetron HCl [Zofran 8 mg Tablet] 8 mg PO QIDP PRN #60 tablet 12/27/17 Baclofen [Baclofen 10 mg Tablet] 20 mg PO BID MDD 20 MG 06/13/19 Empagliflozin [Jardiance] 10 mg PO DAILY 06/13/19 Estradiol [Estrace] 1 applic PV ASDIR PRN 06/13/19 Gabapentin 600 mg PO Q8 06/13/19 Insulin Aspart [Novolog Insulin (Aspart) 100 unit/mL] 5 units SUBCUT TID Losartan/Hydrochlorothiazide [Hyzaar 100-12.5 Tablet] 1 each PO DAILY 06/13/19 Metoclopramide HCl [Reglan 10 mg Tablet] 10 mg PO TIDP PRN 06/13/19 Metoprolol Succinate [Toprol XL 100 mg Tablet] 100 mg PO DAILY 06/13/19 Mirabegron [Myrbetriq] 25 mg PO DAILY 06/13/19 Morphine Sulfate [Morphine Sulfate ER] 30 mg PO Q12 06/13/19 Oxycodone HCl/Acetaminophen [Endocet 5-325 Tablet] 1 each PO Q6HP PRN 06/13/19 Tizanidine HCl [Zanaflex 4 Mg Tablet] 4 mg PO BIDP PRN MDD 8 mg 06/13/19 Allergies/Adverse Reactions: Sulfa (Sulfonamide Antibiotics) Adverse Reaction (Unknown, Verified 07/12/19 17:24) Physical Exam Vital Signs: Temp Pulse Resp BP Pulse Ox 97.7 F 68 16 156/75 H 100 07/12/19 20:45 07/12/19 20:45 07/12/19 20:45 07/12/19 20:45 07/12/19 20:45 Intake & Output 07/11/19 07/12/19 07/13/19 06:59 06:59 06:59 Weight 74.843 kg Results Laboratory Results: 07/12/19 18:53 07/12/19 18:53 07/12/19 07/12/19 18:53 18:53 WBC 18.6 H RBC 5.26 Hgb 16.5 H Hct 47.8 H MCV 91 MCH 31.4 MCHC 34.6 RDW 13.0 Plt Count 301 Seg Neutrophils % 76.9 Sodium 145.0 Potassium 3.7 Chloride 109 H Carbon Dioxide 17 L Anion Gap 19 BUN 67 H Creatinine 1.77 H Est GFR ( Amer) 35 L Glucose 171 H Calcium 10.7 H Total Bilirubin 1.0 AST 22 Alkaline Phosphatase 103 Total Protein 8.8 H Albumin 4.7 Lipase 85.3 07/12/19 07/12/19 18:53 18:53 Creatine Kinase 53 CK-MB (CK-2) 0.73 Troponin I 0.033 Impressions: Chest X-Ray 07/12/19 17:33 IMPRESSION: NO ACUTE FINDINGS.
--- NOTE | 2019-07-12 22:26 | RADIOLOGY REPORT (SQ) ---
EXAM DESCRIPTION: BARIUM SWALLOW ESOPHAGUS COMPLETED DATE/TIME: 07/12/2019 10:06 pm REASON FOR STUDY: dysphagia N39.0 URINARY TRACT INFECTION, SITE NOT SPECIFIED COMPARISON: CT of the abdomen pelvis dated 07/06/2015. TECHNIQUE: Under fluoroscopic guidance, patient ingested thin barium. Fluoroscopic spot images and r outine radiographic images acquired and stored on PACS. 12 MM BARIUM TABLET GIVEN: No. LIMITATIONS: None. FLUOROSCOPY TIME: 1 minutes 30 seconds 10 images saved to PACS. FINDINGS: NEUROMUSCULAR COORDINATION OF SWALLOW: Discoordination during swallowing. Patient holding contrast in mouth. Delayed swallowing. No aspiration. ESOPHAGEAL MOTILITY: Normal peristalsis. No esophageal spasm. ESOPHAGEAL MUCOSA: Normal mucosa without masses or ulceration. GASTRO-ESOPHAGEAL JUNCTION: No hiatal hernia or reflux. NON-GI TRACT STRUCTURES: No significant finding. OTHER: No other significant finding. IMPRESSION: Delayed swallowing of thin barium during initial instruction. Discoordination of swallo wing during exam. Swallowing improved if performing chin tuck during command. Recommend speech path ology evaluation and modified barium swallow. No stricture or mass noted. COMMENT: Quality ID [id number]: Final reports for procedures using fluoroscopy that document radiation exp osure indices, or exposure time and number of fluorographic images (if radiation exposure indices are not available) TECHNICAL DOCUMENTATION: JOB ID: [id number] [employer]- All Rights Reserved Reading location - IP/workstation name: [email or web address]
--- NOTE | 2019-07-12 23:14 | EKG REPORT ---
SEVERITY:- BORDERLINE ECG - SINUS RHYTHM LEFT AXIS DEVIATION = LAFB BORDERLINE T ABNORMALITIES, ANT-LAT LEADS : Confirmed by: Tano Rodgers MD 12-Jul-2019 23:14:13
[2019-07-13] MEDS: LEVOFLOXACIN 500 MG/D5W RTU 500 MG/100 ML RTUPB IV SCH ×2 (02:46→22:07)
[2019-07-13] MEDS: NORMAL SALINE 1000 ML 1,000 ML IV PRN ×2 (02:53→12:53)
[2019-07-13] MEDS ORDERED: LEVOFLOXACIN 500 MG/D5W RTU 500 MG/100 ML RTUPB IV ONE (03:00)
[2019-07-13] MEDS ORDERED: INFLUENZA QUAD (6MOS+) 2019-20 VAC 0.5 ML SYR IM ONE (10:00)
[2019-07-13] MEDS ORDERED: (PENDING PHARMACY ID) (Losartan/Hydrochlorothiazide [Hyzaar 100-12.5 Tablet] 1 EACH) PO SCH (11:30)
[2019-07-13] MEDS ORDERED: (PENDING PHARMACY ID) (Empagliflozin [Jardiance] 10 MG) PO SCH (11:30)
[2019-07-13] MEDS: ASPIRIN 81 MG TABLET, ENT COATED PO SCH (12:34)
[2019-07-13] MEDS: METOPROLOL SUCCINATE 50 MG TAB.SR.24H PO SCH (12:34)
[2019-07-13] MEDS: HYDROCHLOROTHIAZIDE 12.5 MG TABLET PO SCH (12:34)
[2019-07-13] MEDS: LOSARTAN POTASSIUM 50 MG TABLET PO SCH (12:35)
[2019-07-13] MEDS: LEVOTHYROXINE SODIUM 0.075 MG TABLET PO SCH (12:37)
[2019-07-13] MEDS ORDERED: DEXTROSE 50%-WATER SYRINGE 25 GM/50 ML DOSE IV PRN (19:00)
[2019-07-13] MEDS ORDERED: GLUCAGON,HUMAN RECOMB 1 MG INJ IM PRN (19:00)
[2019-07-13] MEDS ORDERED: DEXTROSE 40% GEL 15 GM TUBE PO PRN (19:00)
[2019-07-13] MEDS ORDERED: DEXTROSE 40% GEL 15 GM TUBE X 2 PO PRN (19:00)
[2019-07-13] MEDS ORDERED: DEXTROSE 50%-WATER SYRINGE 12.5 GM/25 ML DOSE IV PRN (19:00)
[2019-07-13] MEDS: INSULIN LISPRO 100 UNIT/ML 3 ML VIAL SUBCUT SCH ×2 (19:50→22:06)
[2019-07-13] MEDS ORDERED: (PENDING PHARMACY ID) (Mirabegron [Myrbetriq] 25 MG) PO SCH (20:00)
[2019-07-13] MEDS ORDERED: (PENDING PHARMACY ID) (Metformin Hcl [Metformin Hcl Er] 500 MG) PO SCH (20:00)
[2019-07-13] MEDS ORDERED: (PENDING PHARMACY ID) (Morphine Sulfate [Morphine Sulfate Er] 30 MG) PO SCH (20:00)
--- NOTE | 2019-07-13 21:07 | PDOC PROGRESS REPORT ---
Subjective Progress Note for:: 07/13/19 Subjective:: Patient was admitted yesterday for the management of leukemoid reaction, etiology is not clear, the urine specimen was not collected by the nurses for culture before the initiation of antibiotic. Patient looks somewhat better today, her voice is clear unlike yesterday when she was acutely ill, the records from [facility] and [facility] is yet to be received from those institutions. Reason For Visit: VOMITING/DIRECT ADMIT Physical Exam Vital Signs: Temp Pulse Resp BP Pulse Ox 97.8 F 65 18 155/68 H 100 07/13/19 20:00 07/13/19 20:00 07/13/19 20:00 07/13/19 20:00 07/13/19 20:00 Intake & Output 07/12/19 07/13/19 07/14/19 06:59 06:59 06:59 Intake Total 0 2060 Output Total 100 Balance 0 1960 Weight 74.8 kg General appearance: PRESENT: no acute distress Eye exam: PRESENT: PERRLA Respiratory exam: PRESENT: clear to auscultation jeannie Cardiovascular exam: PRESENT: +S1, +S2 GI/Abdominal exam: PRESENT: soft Neurological exam: PRESENT: alert Results Laboratory Results: 07/12/19 18:53 07/12/19 18:53 07/12/19 07/12/19 18:53 18:53 Creatine Kinase 53 CK-MB (CK-2) 0.73 Troponin I 0.033 Impressions: Esophagus X-Ray 07/12/19 00:00 IMPRESSION: Delayed swallowing of thin barium during initial instruction. Discoordination of swallowing during exam. Swallowing improved if performing chin tuck during command. Recommend speech pathology evaluation and modified barium swallow. No stricture or mass noted. Chest X-Ray 07/12/19 17:33 IMPRESSION: NO ACUTE FINDINGS. Assessment & Plan - Diagnosis (1) Leukemoid reaction Is this a current diagnosis for this admission?: Yes Plan: Continue IV antibiotic (2) Anxiety and depression Is this a current diagnosis for this admission?: Yes (3) CAD (coronary artery disease) Qualifiers: Coronary Disease-Associated Artery/Lesion type: [place] artery [place] vs. transplanted heart: [place] heart Associated angina: without angina Qualified Code(s): I25.10 - Atherosclerotic heart disease of [place] coronary artery witho ut angina pectoris Is this a current diagnosis for this admission?: Yes (4) COPD (chronic obstructive pulmonary disease) Qualifiers: Is this a current diagnosis for this admission?: Yes (5) Coronary artery disease Qualifiers: Coronary Disease-Associated Artery/Lesion type: [place] artery [place] vs. transplanted heart: [place] heart Associated angina: without angina Qualified Code(s): I25.10 - Atherosclerotic heart disease of [place] coronary artery without angina pectoris Is this a current diagnosis for this admission?: Yes Plan: Continue treatment (6) T2DM (type 2 diabetes mellitus) Qualifiers: Diabetes mellitus regional intermodal truck driver insulin use: with regional intermodal truck driver use Diabetes mellitus complication status: with neurologic complications Diabetes mellitus complication detail: with polyneuropathy Qualified Code(s): E11.42 - Type 2 diabetes mellitus with diabetic polyneuropathy; Z79.4 - regional intermodal truck driver (current) use of insulin Is this a current diagnosis for this admission?: Yes - Time Time Spent with patient: 35 or more minutes Level of Care: TELE
[2019-07-13 22:00] LABS: ABSOLUTE LYMPHOCYTES (AUTO) 2.3 10^3/uL (0.5-4.7); ABSOLUTE MONOCYTES (AUTO) 0.8 10^3/uL (0.1-1.4); ABSOLUTE NEUT (AUTO) 6.9 10^3/uL (1.7-8.2); BASOPHILS % (AUTO) 0.3 % (0-2); EOSINOPHILS % (AUTO) 0.1 % (0-6); HEMATOCRIT 42.5 % (36.0-47.0); HEMOGLOBIN 14.8 g/dL (12.0-15.5); LYMPHOCYTES % (AUTO) 23.1 % (13-45); MEAN CORPUSCULAR HEMOGLOBIN 31.7 pg (27.0-33.4); MEAN CORPUSCULAR HGB CONC 34.9 g/dL (32.0-36.0); MEAN CORPUSCULAR VOLUME 91 fl (80-97); MONOCYTES % (AUTO) 8.4 % (3-13); PLATELET COUNT 225 10^3/uL (150-450); RED BLOOD COUNT 4.68 10^6/uL (3.72-5.28); SEGMENTED NEUTROPHILS % (AUTO) 68.1 % (42-78); TOTAL CELLS COUNTED % (AUTO) 100 %; WHITE BLOOD COUNT 10.1 10^3/uL (4.0-10.5)
[2019-07-13] MEDS: MORPHINE SULFATE SR 30 MG TABLET PO SCH (22:06)
[2019-07-13] MEDS: GABAPENTIN 300 MG CAPSULE PO SCH (22:06)
[2019-07-13 22:18] LABS: ALBUMIN 3.9 g/dL (3.5-5.0); ALKALINE PHOSPHATASE 75 U/L (38-126); ANION GAP 14 (5-19); ASPARTATE AMINO TRANSFERASE 23 U/L (14-36); BILIRUBIN,DIRECT 0.3 mg/dL (0.0-0.4); BILIRUBIN,TOTAL 0.8 mg/dL (0.2-1.3); BLOOD UREA NITROGEN 52 mg/dL (7-20); CALCIUM 9.1 mg/dL (8.4-10.2); CARBON DIOXIDE 16 mmol/L (22-30); CHLORIDE 111 mmol/L (98-107); GLUCOSE 175 mg/dL (75-110); POTASSIUM 3.3 mmol/L (3.6-5.0); TOTAL PROTEIN 7.5 g/dL (6.3-8.2)
[2019-07-13] MEDS: ONDANSETRON HCL INJ/PF 4 MG/2 ML SDV IV PRN (22:49)
[2019-07-14] MEDS: NORMAL SALINE 1000 ML 1,000 ML IV PRN ×2 (03:31→14:16)
[2019-07-14] MEDS: GABAPENTIN 300 MG CAPSULE PO SCH ×3 (05:11→21:28)
[2019-07-14] MEDS: ONDANSETRON HCL INJ/PF 4 MG/2 ML SDV IV PRN ×3 (05:12→19:21)
[2019-07-14] MEDS: LEVOTHYROXINE SODIUM 0.075 MG TABLET PO SCH (05:12)
[2019-07-14 06:13] LABS: ABSOLUTE LYMPHOCYTES (AUTO) 2.5 10^3/uL (0.5-4.7); ABSOLUTE MONOCYTES (AUTO) 0.9 10^3/uL (0.1-1.4); ABSOLUTE NEUT (AUTO) 6.8 10^3/uL (1.7-8.2); BASOPHILS % (AUTO) 0.3 % (0-2); EOSINOPHILS % (AUTO) 0.3 % (0-6); HEMATOCRIT 40.6 % (36.0-47.0); HEMOGLOBIN 14.3 g/dL (12.0-15.5); LYMPHOCYTES % (AUTO) 24.7 % (13-45); MEAN CORPUSCULAR HEMOGLOBIN 32.4 pg (27.0-33.4); MEAN CORPUSCULAR HGB CONC 35.1 g/dL (32.0-36.0); MEAN CORPUSCULAR VOLUME 92 fl (80-97); MONOCYTES % (AUTO) 8.8 % (3-13); PLATELET COUNT 215 10^3/uL (150-450); RED BLOOD COUNT 4.41 10^6/uL (3.72-5.28); RED CELL DISTRIBUTION WIDTH 13.1 % (11.5-14.0); SEGMENTED NEUTROPHILS % (AUTO) 65.9 % (42-78); TOTAL CELLS COUNTED % (AUTO) 100 %; WHITE BLOOD COUNT 10.3 10^3/uL (4.0-10.5)
[2019-07-14 06:48] LABS: APPEARANCE,URINE TURBID; BILIRUBIN,URINE NEGATIVE (NEGATIVE); COLOR,URINE YELLOW; GLUCOSE, URINE 50 mg/dL (NEGATIVE); KETONES,URINE TRACE mg/dL (NEGATIVE); LEUKOCYTE ESTERASE,URINE NEGATIVE (NEGATIVE); NITRITE,URINE NEGATIVE (NEGATIVE); PROTEIN,URINE NEGATIVE (NEGATIVE); URINE SPECIFIC GRAVITY 1.019; UROBILINOGEN,URINE NEGATIVE mg/dL (<2.0)
[2019-07-14] MEDS: INSULIN LISPRO 100 UNIT/ML 3 ML VIAL SUBCUT SCH ×4 (09:14→21:28)
[2019-07-14] MEDS: HYDROCHLOROTHIAZIDE 12.5 MG TABLET PO SCH (09:21)
[2019-07-14] MEDS: METFORMIN HCL 500 MG TABLET PO SCH ×2 (09:22→15:53)
[2019-07-14] MEDS: MORPHINE SULFATE SR 30 MG TABLET PO SCH ×2 (09:22→21:28)
[2019-07-14] MEDS: METOPROLOL SUCCINATE 50 MG TAB.SR.24H PO SCH (09:22)
[2019-07-14] MEDS: LOSARTAN POTASSIUM 50 MG TABLET PO SCH (09:22)
[2019-07-14] MEDS: ASPIRIN 81 MG TABLET, ENT COATED PO SCH (09:22)
--- NOTE | 2019-07-14 14:06 | PDOC PROGRESS REPORT ---
Subjective Progress Note for:: 07/14/19 Subjective:: Patient reported persistent difficulty with swallow that she described as food, currently liquid diet, stuck in her throat and she regurgitate or vomit thereafter. Patient narrated episodes of disorientation and sleepiness that led to her been taken by policemen to hospitals in [place] as well as [place] for evaluation. She denied any history of seizure disorder or sleep apnea. She reported prior evaluation with barium swallow and EGD that revealed adequate s wallowing ability, hiatus hernia and gastroparesis in the last 3-4 years. Her son at bedside reported a scheduled cardiac catherization recently that was not completed and prolapsed bladder that may be contributing to her recurrent UTI. Reason For Visit: VOMITING/DIRECT ADMIT Physical Exam Vital Signs: Temp Pulse Resp BP Pulse Ox 98.7 F 68 18 130/71 H 97 07/14/19 10:45 07/14/19 10:45 07/14/19 10:45 07/14/19 10:45 07/14/19 10:45 Intake & Output 07/13/19 07/14/19 07/15/19 06:59 06:59 05:59 Intake Total 0 3420 180 Output Total 100 Balance 0 3320 180 Weight 74.8 kg 75.9 kg General appearance: PRESENT: no acute distress, well-developed, well-nourished Head exam: PRESENT: atraumatic, normocephalic Eye exam: PRESENT: conjunctiva pink, PERRLA. ABSENT: scleral icterus Ear exam: PRESENT: normal external ear exam Mouth exam: PRESENT: moist Respiratory exam: PRESENT: clear to auscultation jeannie Cardiovascular exam: PRESENT: RRR. ABSENT: diastolic murmur, rubs, systolic murmur Vascular exam: ABSENT: pallor GI/Abdominal exam: PRESENT: normal bowel sounds, soft, tenderness - diffused to palpation. ABSENT: distended, guarding, mass, organolmegaly, rebound Rectal exam: PRESENT: deferred Extremities exam: ABSENT: pedal edema Musculoskeletal exam: PRESENT: normal inspection Neurological exam: PRESENT: alert, awake, oriented to person, oriented to place, oriented to time, oriented to situation, CN II-XII grossly intact. ABSENT: m otor sensory deficit Psychiatric exam: PRESENT: appropriate affect, normal mood. ABSENT: homicidal ideation, suicidal ideation Skin exam: PRESENT: dry, warm Results Laboratory Results: 07/14/19 05:35 07/13/19 21:41 07/13/19 07/13/19 07/13/19 16:30 21:41 21:41 WBC 10.1 RBC 4.68 Hgb 14.8 Hct 42.5 MCV 91 MCH 31.7 MCHC 34.9 RDW 13.0 Plt Count 225 Seg Neutrophils % 68.1 Sodium 140.9 Potassium 3.3 L Chloride 111 H Carbon Dioxide 16 L Anion Gap 14 BUN 52 H Creatinine 1.19 Est GFR ( Amer) 56 L Glucose 175 H Calcium 9.1 Total Bilirubin 0.8 AST 23 Alkaline Phosphatase 75 Total Protein 7.5 Albumin 3.9 Urine Color YELLOW Urine Appearance TURBID Urine pH 6.0 Ur Specific [place] 1.019 Urine Protein NEGATIVE Urine Glucose (UA) 50 H Urine Ketones TRACE H Urine Blood NEGATIVE Urine Nitrite NEGATIVE Ur Leukocyte Esterase NEGATIVE Urine WBC (Auto) 3 07/14/19 05:35 WBC 10.3 RBC 4.41 Hgb 14.3 Hct 40.6 MCV 92 MCH 32.4 MCHC 35.1 RDW 13.1 Plt Count 215 Seg Neutrophils % 65.9 Sodium Potassium Chloride Carbon Dioxide Anion Gap BUN Creatinine Est GFR ( Amer) Glucose Calcium Total Bilirubin AST Alkaline Phosphatase Total Protein Albumin Urine Color Urine Appearance Urine pH Ur Specific [place] Urine Protein Urine Glucose (UA) Urine Ketones Urine Blood Urine Nitrite Ur Leukocyte Esterase Urine WBC (Auto) 07/12/19 07/12/19 18:53 18:53 Creatine Kinase 53 CK-MB (CK-2) 0.73 Troponin I 0.033 Impressions: Esophagus X-Ray 07/12/19 00:00 IMPRESSION: Delayed swallowing of thin barium during initial instruction. Discoordination of swallowing during exam. Swallowing improved if performing chin tuck during command. Recommend speech pathology evaluation and modified barium swallow. No stricture or mass noted. Chest X-Ray 07/12/19 17:33 IMPRESSION: NO ACUTE FINDINGS. Assessment & Plan - Diagnosis (1) Leukemoid reaction Is this a current diagnosis for this admission?: Yes Plan: Continue current medication management. [facility] review. (2) T2DM (type 2 diabetes mellitus) Qualifiers: Diabetes mellitus adjunct faculty for medical terminology insulin use: with adjunct faculty for medical terminology use Diabetes mellitus complication status: with neurologic complications Diabetes mellitus complication detail: with polyneuropathy Qualified Code(s): E11.42 - Type 2 diabetes mellitus with diabetic polyneuropathy; Z79.4 - terminal worker (current) use of insulin Is this a current diagnosis for this admission?: Yes Plan: Continue current medication management. (3) CAD (coronary artery disease) Qualifiers: Coronary Disease-Associated Artery/Lesion type: [place] artery [place] vs. transplanted heart: [place] heart Associated angina: without angina Qualified Code(s): I25.10 - Atherosclerotic heart disease of [place] coronary artery without angina pectoris Is this a current diagnosis for this admission?: Yes Plan: Continue current medication management. (4) COPD (chronic obstructive pulmonary disease) Qualifiers: Is this a current diagnosis for this admission?: Yes Plan: Continue current medication management. (5) Gastroparesis Is this a current diagnosis for this admission?: Yes Plan: Continue current medication management. (6) Hypothyroidism Qualifiers: Hypothyroidism type: unspecified Qualified Code(s): E03.9 - Hypothyroidism, unspecified Is this a current diagnosis for this admission?: Yes Plan: Continue current medication management. (7) Anxiety and depression Is this a current diagnosis for this admission?: Yes Plan: Continue current medication management. - Time Time Spent with patient: 25-34 minutes Medications reviewed and adjusted accordingly: Yes Anticipated discharge: Home with Homehealth Within: Other - Inpatient Certification Based on my medical assessment, after consideration of the patient's comorbidities, presenting symptoms, or acuity I expect that the services needed warrant INPATIENT care.: Yes I certify that my determination is in accordance with my understanding of Medicare's requirements for reasonable and necessary INPATIENT services [42 CFR 412.3e].: Yes Medical Necessity: Significant Comorbidiites Make Outpatient Treatment Too Risky, Need Close Monitoring Due to Risk of Patient Decompensation, Need For IV Fluids, Risk of Complication if Not Cared For in Hospital, Risk of Diagnosis Which Will Require Inpatient Eval/Care/Monitoring Post Hospital Care: D/C Therapeutic Sales Specialist Documentation - Plan Summary Plan Summary: Continue current medication management.
[2019-07-14] MEDS: LEVOFLOXACIN 500 MG/D5W RTU 500 MG/100 ML RTUPB IV SCH (21:27)
[2019-07-15] MEDS: NORMAL SALINE 1000 ML 1,000 ML IV PRN ×3 (01:00→21:41)
[2019-07-15] MEDS: GABAPENTIN 300 MG CAPSULE PO SCH ×3 (06:11→21:40)
[2019-07-15] MEDS: LEVOTHYROXINE SODIUM 0.075 MG TABLET PO SCH (06:11)
[2019-07-15 06:37] LABS: ABSOLUTE EOSINOPHILS # (AUTO) 0.1 10^3/uL (0.0-0.6); ABSOLUTE LYMPHOCYTES (AUTO) 2.6 10^3/uL (0.5-4.7); ABSOLUTE MONOCYTES (AUTO) 0.7 10^3/uL (0.1-1.4); ABSOLUTE NEUT (AUTO) 6.9 10^3/uL (1.7-8.2); BASOPHILS % (AUTO) 0.5 % (0-2); EOSINOPHILS % (AUTO) 0.9 % (0-6); HEMATOCRIT 39.6 % (36.0-47.0); HEMOGLOBIN 13.7 g/dL (12.0-15.5); LYMPHOCYTES % (AUTO) 25.3 % (13-45); MEAN CORPUSCULAR HGB CONC 34.5 g/dL (32.0-36.0); MEAN CORPUSCULAR VOLUME 93 fl (80-97); MONOCYTES % (AUTO) 7.2 % (3-13); PLATELET COUNT 192 10^3/uL (150-450); RED BLOOD COUNT 4.27 10^6/uL (3.72-5.28); RED CELL DISTRIBUTION WIDTH 12.9 % (11.5-14.0); SEGMENTED NEUTROPHILS % (AUTO) 66.1 % (42-78); TOTAL CELLS COUNTED % (AUTO) 100 %; WHITE BLOOD COUNT 10.4 10^3/uL (4.0-10.5)
[2019-07-15 06:58] LABS: ALBUMIN 3.5 g/dL (3.5-5.0); ALKALINE PHOSPHATASE 70 U/L (38-126); ANION GAP 12 (5-19); ASPARTATE AMINO TRANSFERASE 24 U/L (14-36); BILIRUBIN,DIRECT 0.2 mg/dL (0.0-0.4); BLOOD UREA NITROGEN 27 mg/dL (7-20); CALCIUM 8.7 mg/dL (8.4-10.2); CARBON DIOXIDE 21 mmol/L (22-30); CHLORIDE 106 mmol/L (98-107); GLUCOSE 139 mg/dL (75-110); POTASSIUM 3.3 mmol/L (3.6-5.0)
[2019-07-15] MEDS: INSULIN LISPRO 100 UNIT/ML 3 ML VIAL SUBCUT SCH ×4 (08:06→21:43)
[2019-07-15] MEDS: METFORMIN HCL 500 MG TABLET PO SCH ×2 (08:12→17:05)
[2019-07-15] MEDS: ONDANSETRON HCL INJ/PF 4 MG/2 ML SDV IV PRN ×3 (08:40→18:11)
[2019-07-15] MEDS: MORPHINE SULFATE SR 30 MG TABLET PO SCH ×2 (09:22→21:40)
[2019-07-15] MEDS: LOSARTAN POTASSIUM 50 MG TABLET PO SCH (09:23)
[2019-07-15] MEDS: HYDROCHLOROTHIAZIDE 12.5 MG TABLET PO SCH (09:23)
[2019-07-15] MEDS: METOPROLOL SUCCINATE 50 MG TAB.SR.24H PO SCH (09:23)
[2019-07-15] MEDS: ASPIRIN 81 MG TABLET, ENT COATED PO SCH (09:23)
--- NOTE | 2019-07-15 14:05 | PDOC PROGRESS REPORT ---
Subjective Progress Note for:: 07/15/19 Subjective:: No new issues. voice remain hoarse and strength is getting better. Swallowing difficulty remain a concern. No nausea or vomiting so far today. No fever or chills. Reason For Visit: VOMITING/DIRECT ADMIT Physical Exam Vital Signs: Temp Pulse Resp BP Pulse Ox 98.2 F 64 20 161/81 H 99 07/15/19 12:00 07/15/19 12:00 07/15/19 12:00 07/15/19 12:00 07/15/19 12:00 Intake & Output 07/14/19 07/15/19 07/16/19 07:59 06:59 06:59 Intake Total Output Total Balance Weight Physical Exam: General appearance: PRESENT: no acute distress, well-developed, well-nourished Head exam: PRESENT: atraumatic, normocephalic Eye exam: PRESENT: conjunctiva pink, PERRLA. ABSENT: pallor, scleral icterus Ear exam: PRESENT: normal external ear exam Mouth exam: PRESENT: moist Respiratory exam: PRESENT: clear to auscultation jeannie Cardiovascular exam: PRESENT: RRR. ABSENT: diastolic murmur, rubs, systolic murmur GI/Abdominal exam: PRESENT: normal bowel sounds, soft. ABSENT: distended, tenderness, guarding, mass, organomegaly, rebound Rectal exam: PRESENT: deferred Extremities exam: ABSENT: pedal edema Musculoskeletal exam: PRESENT: normal inspection Neurological exam: PRESENT: alert, awake, oriented to person, oriented to place, oriented to time, oriented to situation, CN II-XII grossly intact. ABSENT: motor sensory deficit Psychiatric exam: PRESENT: appropriate affect, normal mood. ABSENT: homicidal ideation, suicidal ideation Skin exam: PRESENT: dry, warm Results Laboratory Results: 07/15/19 05:28 07/15/19 05:28 07/15/19 07/15/19 05:28 05:28 WBC 10.4 RBC 4.27 Hgb 13.7 Hct 39.6 MCV 93 MCH 32.0 MCHC 34.5 RDW 12.9 Plt Count 192 Seg Neutrophils % 66.1 Sodium 138.5 Potassium 3.3 L Chloride 106 Carbon Dioxide 21 L Anion Gap 12 BUN 27 H Creatinine 0.98 Est GFR ( Amer) > 60 Glucose 139 H Calcium 8.7 Total Bilirubin 1.0 AST 24 Alkaline Phosphatase 70 Total Protein 7.0 Albumin 3.5 07/13/19 16:30 Catheterized Urine Urine Culture - Final NO GROWTH 2 DAYS 07/12/19 07/12/19 18:53 18:53 Creatine Kinase 53 CK-MB (CK-2) 0.73 Troponin I 0.033 Impressions: Esophagus X-Ray 07/12/19 00:00 IMPRESSION: Delayed swallowing of thin barium during initial instruction. Discoordination of swallowing during exam. Swallowing improved if performing chin tuck during command. Recommend speech pathology evaluation and modified barium swallow. No stricture or mass noted. Chest X-Ray 07/12/19 17:33 IMPRESSION: NO ACUTE FINDINGS. Assessment & Plan - Diagnosis (1) Leukemoid reaction Is this a current diagnosis for this admission?: Yes (2) T2DM (type 2 diabetes mellitus) Qualifiers: Diabetes mellitus superintendent marine oil terminal insulin use: with detention use Diabetes mellitus complication status: with neurologic complications Diabetes mellitus complication detail: with polyneuropathy Qualified Code(s): E11.42 - Type 2 diabetes mellitus with diabetic polyneuropathy; Z79.4 - meterman (current) use of insulin Is this a current diagnosis for this admission?: Yes (3) CAD (coronary artery disease) Qualifiers: Coronary Disease-Associated Artery/Lesion type: [place] artery [place] vs. transplanted heart: [place] heart Associated angina: without angina Qualified Code(s): I25.10 - Atherosclerotic heart disease of [place] coronary artery without angina pectoris Is this a current diagnosis for this admission?: Yes (4) COPD (chronic obstructive pulmonary disease) Qualifiers: Is this a current diagnosis for this admission?: Yes (5) Gastroparesis Is this a current diagnosis for this admission?: Yes Plan: This may account for her recurrent nausea and vomiting but her difficulty with swallowing warrant endoscopic assessment for possible esophageal pathology. (6) Hypothyroidism Qualifiers: Hypothyroidism type: unspecified Qualified Code(s): E03.9 - Hypothyroidism, unspecified Is this a current diagnosis for this admission?: Yes (7) Anxiety and depression Is this a current diagnosis for this admission?: Yes (8) Hypokalemia due to inadequate potassium intake Is this a current diagnosis for this admission?: Yes Plan: Patient will receive 80 Meq total replacement dose of oral potassium chloride. Obtain serum Magnesium level. Repeat BMP in am. - Time Time Spent with patient: 25-34 minutes Medications reviewed and adjusted accordingly: Yes Anticipated discharge: Home with Homehealth Within: Other - Inpatient Certification Based on my medical assessment, after consideration of the patient's comorbidities, presenting symptoms, or acuity I expect that the services needed warrant INPATIENT care.: Yes I certify that my determination is in accordance with my understanding of Medicare's requirements for reasonable and necessary INPATIENT services [42 CFR 412.3e].: Yes Medical Necessity: Significant Comorbidiites Make Outpatient Treatment Too Risky, Need Close Monitoring Due to Risk of Patient Decompensation, Need For IV Fluids, Need For Continuous Telemetry Monitoring, Need for IV Antibiotics, Risk of Complication if Not Cared For in Hospital, Risk of Diagnosis Which Will Require Inpatient Eval/Care/Monitoring Post Hospital Care: D/C Gas Dispatcher Documentation - Plan Summary Plan Summary: Continue current medication management. She will benefit from GI consultation and possible endoscopic evaluation tomorrow. Follow up on medical records from [facility] in [place] and [facility] in [place].
[2019-07-15] MEDS: POTASSIUM CHLORIDE 20 MEQ PACKET PO SCH ×3 (15:34→21:41)
[2019-07-15] MEDS: LEVOFLOXACIN 500 MG/D5W RTU 500 MG/100 ML RTUPB IV SCH (21:40)
[2019-07-16] MEDS: POTASSIUM CHLORIDE 20 MEQ PACKET PO SCH (02:49)
[2019-07-16] MEDS: LEVOTHYROXINE SODIUM 0.075 MG TABLET PO SCH (05:01)
[2019-07-16] MEDS: GABAPENTIN 300 MG CAPSULE PO SCH ×3 (05:01→22:02)
[2019-07-16 06:27] LABS: ANION GAP 11 (5-19); BLOOD UREA NITROGEN 18 mg/dL (7-20); CALCIUM 8.6 mg/dL (8.4-10.2); CARBON DIOXIDE 19 mmol/L (22-30); CHLORIDE 106 mmol/L (98-107); GLUCOSE 175 mg/dL (75-110); POTASSIUM 3.6 mmol/L (3.6-5.0)
[2019-07-16] MEDS: INSULIN LISPRO 100 UNIT/ML 3 ML VIAL SUBCUT SCH ×4 (08:28→22:02)
[2019-07-16] MEDS: METFORMIN HCL 500 MG TABLET PO SCH ×2 (08:28→17:01)
[2019-07-16] MEDS: ONDANSETRON HCL INJ/PF 4 MG/2 ML SDV IV PRN ×3 (08:28→17:04)
[2019-07-16] MEDS: LOSARTAN POTASSIUM 50 MG TABLET PO SCH (09:34)
[2019-07-16] MEDS: ASPIRIN 81 MG TABLET, ENT COATED PO SCH (09:34)
[2019-07-16] MEDS: METOPROLOL SUCCINATE 50 MG TAB.SR.24H PO SCH (09:34)
[2019-07-16] MEDS: MORPHINE SULFATE SR 30 MG TABLET PO SCH ×2 (09:35→22:03)
[2019-07-16] MEDS: HYDROCHLOROTHIAZIDE 12.5 MG TABLET PO SCH (09:35)
[2019-07-16] MEDS: NORMAL SALINE 1000 ML 1,000 ML IV PRN ×2 (12:24→22:07)
[2019-07-16] MEDS: LEVOFLOXACIN 500 MG/D5W RTU 500 MG/100 ML RTUPB IV SCH (22:04)
--- NOTE | 2019-07-16 22:20 | PDOC PROGRESS REPORT ---
Subjective Progress Note for:: 07/16/19 Subjective:: Patient seen by the bedside, complaining of dysphagia, consult surgicalist for EGD Reason For Visit: VOMITING/DIRECT ADMIT Physical Exam Vital Signs: Temp Pulse Resp BP Pulse Ox 97.8 F 71 20 161/66 H 100 07/16/19 19:22 07/16/19 19:22 07/16/19 19:22 07/16/19 19:22 07/16/19 19:22 Intake & Output 07/15/19 07/16/19 07/17/19 06:59 06:59 06:59 Intake Total 4430 2892 Output Total 700 Balance 3730 2892 Weight 75.9 kg 75.9 kg General appearance: PRESENT: no acute distress Eye exam: PRESENT: PERRLA Respiratory exam: PRESENT: clear to auscultation jeannie Cardiovascular exam: PRESENT: +S1, +S2 GI/Abdominal exam: PRESENT: soft Neurological exam: PRESENT: alert, CN II-XII grossly intact Results Laboratory Results: 07/15/19 05:28 07/16/19 05:50 07/16/19 05:50 Sodium 135.5 L Potassium 3.6 Chloride 106 Carbon Dioxide 19 L Anion Gap 11 BUN 18 Creatinine 0.91 Est GFR ( Amer) > 60 Glucose 175 H Calcium 8.6 07/12/19 07/12/19 18:53 18:53 Creatine Kinase 53 CK-MB (CK-2) 0.73 Troponin I 0.033 Impressions: Esophagus X-Ray 07/12/19 00:00 IMPRESSION: Delayed swallowing of thin barium during initial instruction. Discoordination of swallowing during exam. Swallowing improved if performing chin tuck during command. Recommend speech pathology evaluation and modified barium swallow. No stricture or mass noted. Chest X-Ray 07/12/19 17:33 IMPRESSION: NO ACUTE FINDINGS. Assessment & Plan - Diagnosis (1) Leukemoid reaction Is this a current diagnosis for this admission?: Yes Plan: Continue antibiotic (2) Anxiety and depression Is this a current diagnosis for this admission?: Yes (3) CAD (coronary artery disease) Qualifiers: Coronary Disease-Associated Artery/Lesion type: [place] artery [place] vs. transplanted heart: [place] heart Associated angina: without angina Qualified Code(s): I25.10 - Atherosclerotic heart disease of [place] coronary artery without angina pectoris Is this a current diagnosis for this admission?: Yes (4) COPD (chronic obstructive pulmonary disease) Qualifiers: Is this a current diagnosis for this admission?: Yes (5) Coronary artery disease Qualifiers: Coronary Disease-Associated Artery/Lesion type: [place] artery [place] vs. transplanted heart: [place] heart Associated angina: without angina Qualified Code(s): I25.10 - Atherosclerotic heart disease of [place] coronary artery without angina pectoris Is this a current diagnosis for this admission?: Yes (6) T2DM (type 2 diabetes mellitus) Qualifiers: Diabetes mellitus computer terminal operator insulin use: with fpc use Diabetes mellitus complication status: with neurologic complications Diabetes mellitus complication detail: with polyneuropathy Qualified Code(s): E11.42 - Type 2 diabetes mellitus with diabetic polyneuropathy; Z79.4 - penitentiary (current) use of insulin Is this a current diagnosis for this admission?: Yes - Time Time Spent with patient: 25-34 minutes Level of Care: TELE
[2019-07-17] MEDS: GABAPENTIN 300 MG CAPSULE PO SCH ×3 (05:39→21:22)
[2019-07-17] MEDS: LEVOTHYROXINE SODIUM 0.075 MG TABLET PO SCH (05:39)
[2019-07-17] MEDS: METFORMIN HCL 500 MG TABLET PO SCH ×3 (07:46→18:54)
[2019-07-17] MEDS: INSULIN LISPRO 100 UNIT/ML 3 ML VIAL SUBCUT SCH ×4 (07:47→21:15)
[2019-07-17] MEDS ORDERED: FENTANYL CITRATE INJ/PF 100 MCG/2 ML AMPUL ONE (08:17)
[2019-07-17] MEDS ORDERED: DIPHENHYDRAMINE HCL 50 MG/ML VIAL ONE (08:17)
[2019-07-17] MEDS ORDERED: NALOXONE HCL INJ/PF 0.4 MG/1 ML SDV ONE (08:17)
[2019-07-17] MEDS ORDERED: ONDANSETRON HCL INJ/PF 4 MG/2 ML SDV ONE (08:17)
[2019-07-17] MEDS ORDERED: GLUCAGON,HUMAN RECOMB 1 MG INJ ONE (08:18)
[2019-07-17] MEDS ORDERED: EPINEPHRINE INJ 1 MG/10 ML DISP.SYRIN ONE (08:18)
[2019-07-17] MEDS ORDERED: FLUMAZENIL INJ 0.5 MG/5 ML VIAL ONE (08:18)
[2019-07-17] MEDS: NORMAL SALINE 1000 ML 1,000 ML IV PRN (08:26)
[2019-07-17] MEDS: ONDANSETRON HCL INJ/PF 4 MG/2 ML SDV IV PRN (08:26)
[2019-07-17] MEDS: MIDAZOLAM 2 MG/2 ML INJ ONE ×3 (08:48→08:52)
--- NOTE | 2019-07-17 09:11 | Operative Report ---
Operative Report DATE OF SURGERY: 07/17/19 PREOPERATIVE DIAGNOSIS: Dysphasia; hoarseness POSTOPERATIVE DIAGNOSIS: Same with. 1. Lesion on left vocal cord/vestibular fold. 2. Mild distal esophagitis. 3. Mild gastritis OPERATION: 1. Esophagogastroduodenoscopy. 2. Mucosal biopsies of distal esophagus and gastric antrum SURGEON: JABARI GUTIÉRREZ ANESTHESIA: Moderate Sedation TISSUE REMOVED OR ALTERED: Mucosal biopsies COMPLICATIONS: None INTRAOPERATIVE FINDINGS: See below PROCEDURE: The patient was taken from the fourth floor to the fifth floor endoscopy suite, placed in the semirecumbent position, left lateral decubitus, monitoring devices attached to the appropriate level of conscious sedation induced. Surgical plan surgical timeout were conducted. The flexible adult upper endoscope was advanced through the oropharynx, into the hypopharynx where a small less than 1 cm plaque-like lesion was defined on the left false vocal cord just above the true vocal cord and photos taken. This was a plaque-like lesion. The vocal cords otherwise appeared normal The scope was advanced into the upper esophagus through the upper esophageal sphincter, down the esophagus through the stomach and into the first and second portions of the duodenum. The duodenum was normal. The scope was brought back to the pylorus several times checking for any lesions and there were none. There was no evidence of tumor, stricture, bleeding or polyp. There is mild inflammation of the gastric antrum and a cold forceps biopsy was performed of the antrum and sent for histologic analysis. Scope was retroflexed in the stomach and no pathology seen at the cardia. The scope was withdrawn 38 cm from the incisor. The distal esophagus had mild to moderate inflammation. A biopsy was performed of the distal esophagus just above the Z line. Bleeding was minimal. The rest of the esophagus was grossly unremarkable. We attempted to reinspect carefully the false cord lesion but the patient was bucking too much for additional photos. The scope was withdrawn with the patient's oropharynx. She tolerated procedure well. Impression:. Mild distal esophagitis and antritis status post biopsies; left false vocal cord or left vestibule lesion of uncertain significance Recommendations: 1. May resume preoperative medications, diet and activity. 2. Consider referral to ENT for further evaluation of the hypopharyngeal lesion
[2019-07-17] MEDS: LOSARTAN POTASSIUM 50 MG TABLET PO SCH (09:57)
[2019-07-17] MEDS: MORPHINE SULFATE SR 30 MG TABLET PO SCH ×2 (09:58→21:22)
[2019-07-17] MEDS: METOPROLOL SUCCINATE 50 MG TAB.SR.24H PO SCH (09:58)
[2019-07-17] MEDS: ASPIRIN 81 MG TABLET, ENT COATED PO SCH (09:58)
[2019-07-17] MEDS: HYDROCHLOROTHIAZIDE 12.5 MG TABLET PO SCH (10:04)
[2019-07-17] MEDS ORDERED: PHENOL/SODIUM PHENOLATE 100 SPRAY/177 ML BOTTLE PO PRN (19:32)
[2019-07-17] MEDS: LEVOFLOXACIN 500 MG/D5W RTU 500 MG/100 ML RTUPB IV SCH (21:22)
[2019-07-18] MEDS: LEVOTHYROXINE SODIUM 0.075 MG TABLET PO SCH (05:41)
[2019-07-18] MEDS: GABAPENTIN 300 MG CAPSULE PO SCH (05:42)
--- NOTE | 2019-07-18 08:35 | PDOC DISCHARGE SUMMARY ---
Impression - Admit/DC Date/PCP Admission Date/Primary Care Provider: 07/12/19 20:09 TUCKER WESTFALL MD Discharge Date: 07/18/19 - Discharge Diagnosis (1) Leukemoid reaction Is this a current diagnosis for this admission?: Yes (2) Anxiety and depression Is this a current diagnosis for this admission?: Yes (3) CAD (coronary artery disease) Is this a current diagnosis for this admission?: Yes (4) COPD (chronic obstructive pulmonary disease) Is this a current diagnosis for this admission?: Yes (5) Coronary artery disease Is this a current diagnosis for this admission?: Yes (6) T2DM (type 2 diabetes mellitus) Is this a current diagnosis for this admission?: Yes - Additional Information Resuscitation Status: Full Code Referrals: TUCKER WESTFALL MD [Primary Care Provider] - 07/25/19 10:00 am Home Medications: Aspirin [Aspirin EC] 81 mg PO DAILY 12/23/17 Levothyroxine Sodium [Synthroid 0.075 mg Tablet] 0.075 mg PO Q6AM 12/23/17 Empagliflozin [Jardiance] 10 mg PO DAILY 06/13/19 Gabapentin 600 mg PO Q8 06/13/19 Insulin Aspart [Novolog Insulin (Aspart) 100 unit/mL] 5 units SUBCUT TID 10/31 Losartan/Hydrochlorothiazide [Hyzaar 100-12.5 Tablet] 1 each PO DAILY 06/13/19 Metoprolol Succinate [Toprol XL 100 mg Tablet] 100 mg PO DAILY 06/13/19 Mirabegron [Myrbetriq] 25 mg PO DAILY 06/13/19 Morphine Sulfate [Morphine Sulfate ER] 30 mg PO Q12 06/13/19 Glimepiride 2 mg PO DAILY 07/13/19 Metformin HCl [Metformin HCl ER] 500 mg PO QAM 07/13/19 Ondansetron HCl [Zofran 8 mg Tablet] 8 mg PO Q8HP PRN 07/13/19 History of Present Illiness History of Present Illness: JORGE ROBERT is a 58 year old femaleShe [facility], she came to the office with her spouse for evaluation of dysphagia, altered mental status, severe hoarseness of voice, generalized malaise. She was evaluated in the office, she looks acutely ill, could not obtain any history from this patient, she says she cannot swallow. She has multiple comorbid conditions including poorly controlled diabetes mellitus chronic opioid dependence she has chronic pain follow with pain management. The spouse stated that she was admitted at [facility] for some undisclosed ailment, I could not get the record from this facility, she also was recently admitted at [facility] I did not have access to any of the records but I felt the best plan of care for this patient at this time in my office is to be admitted directly into the hospital for further evaluation. Initial blood work demonstrated severe leukocytosis WBC was 18,000 with a left shift there was associated azotemia, serum creatinine 1.7, chest x-ray was negative urinalysis is pending and also urine culture is pending. A stat barium swallow x-ray did not show any mass lesion, no stricture, no lumen narrowing or any intramucosal lesion that would cause dysphagia. Hospital Course Hospital Course: Patient was admitted for the management of leukemoid reaction, dysphagia, hoarseness, the etiology of the leukemoid reaction was not known, she was treated empirically with antibiotic culture result negative. She has a history of recurrent UTI, UTI was suspected as potential etiology for the leukemoid reaction, the WBC on admission was 18,000. She complain of hoarseness and dysphagia, barium swallow was done which was negative, consultation was requested from surgery she underwent upper endoscopy on 07/17/[address] Luis Armando leavitt. She was found to have mild gastritis, mild esophagitis, a lesion on the left vocal cord. She also was given IV fluid, there is concern by family that patient may be taking too much opioid medication, she is on megadoses of opioid for the control of pain. She has a history of gastroparesis, use of opioid will obviously aggravate GI motility. Patient is very defensive regarding the use of opioid Physical Exam Vital Signs: Temp Pulse Resp BP Pulse Ox 99.0 F 86 16 121/51 L 95 07/17/19 23:49 07/17/19 23:49 07/17/19 23:49 07/17/19 23:49 07/17/19 23:49 Intake & Output 07/17/19 07/18/19 07/19/19 06:59 06:59 06:59 Intake Total 3232 3110 Balance 3232 3110 Weight 79.6 kg 83.2 kg General appearance: PRESENT: no acute distress Eye exam: PRESENT: PERRLA Respiratory exam: PRESENT: clear to auscultation jeannie Cardiovascular exam: PRESENT: +S1, +S2 GI/Abdominal exam: PRESENT: soft Neurological exam: PRESENT: alert Results Laboratory Results: WBC 10.4 10^3/uL (4.0-10.5) 07/15/19 05:28 RBC 4.27 10^6/uL (3.72-5.28) 07/15/19 05:28 Hgb 13.7 g/dL (12.0-15.5) 07/15/19 05:28 Hct 39.6 % (36.0-47.0) 07/15/19 05:28 MCV 93 fl (80-97) 07/15/19 05:28 MCH 32.0 pg (27.0-33.4) 07/15/19 05:28 MCHC 34.5 g/dL (32.0-36.0) 07/15/19 05:28 RDW 12.9 % (11.5-14.0) 07/15/19 05:28 Plt Count 192 10^3/uL (150-450) 07/15/19 05:28 Lymph % (Auto) 25.3 % (13-45) 07/15/19 05:28 [place] % (Auto) 7.2 % (3-13) 07/15/19 05:28 Eos % (Auto) 0.9 % (0-6) 07/15/19 05:28 Baso % (Auto) 0.5 % (0-2) 07/15/19 05:28 Absolute Neuts (auto) 6.9 10^3/uL (1.7-8.2) 07/15/19 05:28 Absolute Lymphs (auto) 2.6 10^3/uL (0.5-4.7) 07/15/19 05:28 Absolute Monos (auto) 0.7 10^3/uL (0.1-1.4) 07/15/19 05:28 Absolute Eos (auto) 0.1 10^3/uL (0.0-0.6) 07/15/19 05:28 Absolute Basos (auto) 0.0 10^3/uL (0.0-0.2) 07/15/19 05:28 Seg Neutrophils % 66.1 % (42-78) 07/15/19 05:28 Sodium 135.5 mmol/L (137-145) L 07/16/19 05:50 Potassium 3.6 mmol/L (3.6-5.0) 07/16/19 05:50 Chloride 106 mmol/L (98-107) 07/16/19 05:50 Carbon Dioxide 19 mmol/L (22-30) L 07/16/19 05:50 Anion Gap 11 (5-19) 07/16/19 05:50 BUN 18 mg/dL (7-20) 07/16/19 05:50 Creatinine 0.91 mg/dL (0.52-1.25) 07/16/19 05:50 Est GFR ( Amer) > 60 (>60) 07/16/19 05:50 Est GFR (MDRD) Non-Af > 60 (>60) 07/16/19 05:50 Glucose 175 mg/dL (75-110) H 07/16/19 05:50 POC Glucose 160 mg/dL (70-110) H 07/18/19 06:04 Calcium 8.6 mg/dL (8.4-10.2) 07/16/19 05:50 Magnesium 1.9 mg/dL (1.6-2.3) 07/15/19 05:28 Total Bilirubin 1.0 mg/dL (0.2-1.3) 07/15/19 05:28 Direct Bilirubin 0.2 mg/dL (0.0-0.4) 07/15/19 05:28 Neonat Total Bilirubin Not Reportable 07/15/19 05:28 Neonat Direct Bilirubin Not Reportable 07/15/19 05:28 Neonat Indirect Bili Not Reportable 07/15/19 05:28 AST 24 U/L (14-36) 07/15/19 05:28 ALT 15 U/L (<35) 07/15/19 05:28 Alkaline Phosphatase 70 U/L (38-126) 07/15/19 05:28 Creatine Kinase 53 U/L (30-135) 07/12/19 18:53 CK-MB (CK-2) 0.73 ng/mL (<4.55) 07/12/19 18:53 Troponin I 0.033 ng/mL 07/12/19 18:53 Total Protein 7.0 g/dL (6.3-8.2) 07/15/19 05:28 Albumin 3.5 g/dL (3.5-5.0) 07/15/19 05:28 Lipase 85.3 U/L (23-300) 07/12/19 18:53 Urine Color YELLOW 07/13/19 16:30 Urine Appearance TURBID 07/13/19 16:30 Urine pH 6.0 (5.0-9.0) 07/13/19 16:30 Ur Specific [place] 1.019 07/13/19 16:30 Urine Protein NEGATIVE mg/dL (NEGATIVE) 07/13/19 16:30 Urine Glucose (UA) 50 mg/dL (NEGATIVE) H 07/13/19 16:30 Urine Ketones TRACE mg/dL (NEGATIVE) H 07/13/19 16:30 Urine Blood NEGATIVE (NEGATIVE) 07/13/19 16:30 Urine Nitrite NEGATIVE (NEGATIVE) 07/13/19 16:30 Urine Bilirubin NEGATIVE (NEGATIVE) 07/13/19 16:30 Urine Urobilinogen NEGATIVE mg/dL (<2.0) 07/13/19 16:30 Ur Leukocyte Esterase NEGATIVE (NEGATIVE) 07/13/19 16:30 Urine WBC (Auto) 3 /HPF 07/13/19 16:30 Urine Bacteria (Auto) TRACE /HPF 07/13/19 16:30 Urine Mucus (Auto) RARE /LPF 07/13/19 16:30 Urine Ascorbic Acid NEGATIVE (NEGATIVE) 07/13/19 16:30 07/12/19 18:53 CK-MB (CK-2) 0.73 Troponin I 0.033 Impressions: Esophagus X-Ray 07/12/19 00:00 IMPRESSION: Delayed swallowing of thin barium during initial instruction. Discoordination of swallowing during exam. Swallowing improved if performing chin tuck during command. Recommend speech pathology evaluation and modified barium swallow. No stricture or mass noted. Chest X-Ray 07/12/19 17:33 IMPRESSION: NO ACUTE FINDINGS. Stroke Is this a Stroke Patient?: No Acute Heart Failure - Is this a Heart Failure Patient?: No
[2019-07-18] MEDS: INSULIN LISPRO 100 UNIT/ML 3 ML VIAL SUBCUT SCH (08:59)
[2019-07-18] MEDS: METFORMIN HCL 500 MG TABLET PO SCH (08:59)
[2019-07-18 09:08] VITALS: BP 138/55
[2019-07-18] MEDS: LOSARTAN POTASSIUM 50 MG TABLET PO SCH (10:08)
[2019-07-18] MEDS: METOPROLOL SUCCINATE 50 MG TAB.SR.24H PO SCH (10:08)
[2019-07-18] MEDS: HYDROCHLOROTHIAZIDE 12.5 MG TABLET PO SCH (10:08)
[2019-07-18] MEDS: MORPHINE SULFATE SR 30 MG TABLET PO SCH (10:09)
[2019-07-18] MEDS: ASPIRIN 81 MG TABLET, ENT COATED PO SCH (10:09)
--- NOTE | 2019-07-18 17:56 | NEURO WORKBENCH EEG REPORT ---
EEG Report Patient: Leon Jimenez ID: [id number] Referring Doctor: Wilder Lopez Date: 07/18/2019 Reason for study: Evaluate Epileptiform activity Medications: Aspirin, Gabapentin, Hydrodiuril, Insulin, Levaquin, Synthroid, Cozaar, Metformin, Toprol, MsContin, Zofram History: This is a 58 year old female with a history of CAD, [place], HTN, COPD, DMII, Hepatitis C, Arthritis, Bipolar Disorder, Depression, PTSD. This EEG was requested for evaluation of epileptiform activity. EEG Interpretation: This EEG was recorded during wakefulness, stage I, and stage II sleep. There was frequent drowsiness. The awake EEG is characterized by a background with a reactive posterior dominant rhythm (PDR) of approximately 9 Hz. The remainder of the background consisted of low amplitude beta activity. The EEG is symmetric in amplitudes and frequencies. There was occasional Mu rhythm noted in the left central regions. Poorly formed right wicket spikes (normal variant) were also noted in the right temporal region during drowsiness. Photic stimulation resulted in photic driving, and there was no epileptiform activity elicited with photic stimulation. Stage I sleep was achieved and characterized by slow rolling eye movements, slowing of the background rhythm with the emergence of diffuse theta activity. Stage II sleep was achieved and symmetric sleep spindles were noted. POSTs were also noted. There were no epileptiform abnormalities (no sharp waves and no spikes). There were no seizures. The EKG showed a regular rhythm with typically 60-65 beats per minute. EEG Impression: This EEG is within normal limits for age. There was no epileptiform activity or seizures. A single normal routine EEG does not rule out the possibility of epilepsy. If there is high clinical suspicion for epilepsy, then additional EEG evaluation should be considered with a sleep-deprived EEG or more prolonged EEG monitoring. INTERPRETING NEUROLOGIST: Tee Araujo MD Board certified by the [place] [employer] in Neurology, Clinical Neurophysiology, and Sleep Medicine [facility]
== END 2019-07-18 11:55 | disposition home health service (06) ==
LOC: ER 17:14 → 2N 20:09 → 4W 07-13 08:01 → 4S 07-18 06:15
PROVIDERS: ADMIT Internal Medicine; ATTEND Internal Medicine
PROC: 0DB68ZX Excision of Stomach, Via Natural or Artificial Opening Endoscopic, Diagnostic (ICD-10-PCS; 2019-07-17)
PROC: 0DB38ZX Excision of Lower Esophagus, Via Natural or Artificial Opening Endoscopic, Diagnostic (ICD-10-PCS; principal; 2019-07-17 09:00)
PROC: 3E02340 Introduction of Influenza Vaccine into Muscle, Percutaneous Approach (ICD-10-PCS; 2019-07-18)
DX: K29.50 Unspecified chronic gastritis without bleeding (principal); K29.60 Other gastritis without bleeding; K22.10 Ulcer of esophagus without bleeding; I25.10 Atherosclerotic heart disease of native coronary artery without angina pectoris; D72.823 Leukemoid reaction; K21.0 Gastro-esophageal reflux disease with esophagitis; F41.9 Anxiety disorder, unspecified; F32.9 Major depressive disorder, single episode, unspecified; E11.43 Type 2 diabetes mellitus with diabetic autonomic (poly)neuropathy; K31.84 Gastroparesis; E11.65 Type 2 diabetes mellitus with hyperglycemia; G89.29 Other chronic pain; R53.81 Other malaise; F11.20 Opioid dependence, uncomplicated; R79.89 Other specified abnormal findings of blood chemistry; J44.9 Chronic obstructive pulmonary disease, unspecified; E03.9 Hypothyroidism, unspecified; N81.10 Cystocele, unspecified; R53.83 Other fatigue; E87.6 Hypokalemia; R41.82 Altered mental status, unspecified; R05 Cough; M19.90 Unspecified osteoarthritis, unspecified site; Z23 Encounter for immunization; I25.2 Old myocardial infarction; Z87.440 Personal history of urinary (tract) infections; Z79.82 Long term (current) use of aspirin; Z79.899 Other long term (current) drug therapy; Z90.49 Acquired absence of other specified parts of digestive tract; Z95.5 Presence of coronary angioplasty implant and graft; Z86.19 Personal history of other infectious and parasitic diseases; Z79.4 Long term (current) use of insulin
CPT/HCPCS: 95819 ×2; 93005; 99281; 43239; 36415 ×5; 87086; 82553; 82962 ×7; 82550; 83690; 83735; 85025 ×4; 80048; 80053 ×3; 81001; 84484; 88305 ×2; 71046; 74220; 90686; 93010; G0378 ×8; J2250; J1956 ×5; A9270 ×54; J3010; J2405 ×5; J7030 ×5; J3490 ×2; J0171; J1200; J1610; J1815; J2310

== ENCOUNTER → 2019-10-02 | Outpatient (CLI) | payer MEDICARE, MEDICAID ==
--- NOTE | 2019-10-02 10:28 | RADIOLOGY REPORT (SQ) ---
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 TECHNIQUE: Multiplanar imaging includes non-contrasted T1, T2, FLAIR, and Diffusion with ADC map seq uences. Images stored on PACS. LIMITATIONS: None. FINDINGS: ANATOMY: No anomalies. Normal vascular flow voids. Pituitary fossa normal. CSF SPACES: Normal in size and contour. No hemorrhage. CEREBRUM: A few high-signal intensity lesions scattered throughout the white matter on FLAIR imaging with distribution suggesting chronic micro-vascular ischemic change. Sulci and gyri normal in size a nd contour. No evidence of hemorrhage, mass or extraaxial fluid collection. POSTERIOR FOSSA: No signal alteration. No hemorrhage. No edema, masses or mass effect. Internal ze tory canals, cerebello-pontine angles, mastoids normal. DIFFUSION: Negative for acute or sub-acute infarction. ORBITS: No masses. Globes normal. PARANASAL SINUSES: No fluid levels. Mucosa normal. OTHER: No other significant finding. IMPRESSION: MINIMAL MICROVASCULAR ISCHEMIC CHANGE. OTHERWISE NORMAL STUDY. EVIDENCE OF ACUTE STROKE: NO. TECHNICAL DOCUMENTATION: JOB ID: [id number] [facility]- All Rights Reserved Reading location - IP/workstation name: [email or web address]
== END ==
LOC: RAD 09:13
PROVIDERS: ATTEND Internal Medicine
DX: I63.9 Cerebral infarction, unspecified (principal)
CPT/HCPCS: 70551